=== PATIENT | male | born 1990 | race Caucasian/White ===

== ENCOUNTER 2019-12-19 08:42 | Outpatient (REF) | payer MEDICAID, SELFPAY ==
--- NOTE | 2019-12-19 08:46 | EMG_ITS ---
HISTORY OF PRESENT ILLNESS: This is a 29-year-old man with the right upper extremity pain and numbness, in the wrist area if he uses it with intermittent brief numbness and tingling in the thumb and index finger. He is on no medications. Neurological examination is normal. NERVE CONDUCTION EMG STUDY: Normal electrodiagnostic study of the right upper extremity with no evidence of nerve entrapment. Normal EMG of the right C5 through T1 innervated muscles. MD JORGE L Colby/LUPE / [id number]
== END 2019-12-19 08:43 | disposition home or self-care (01) ==
LOC: HO.NEURO 08:42
PROVIDERS: PCP Internal Medicine; Visit Provider Internal Medicine
DX: R20.0 Anesthesia of skin (principal)
CPT/HCPCS: 95860; 95886; 95910

== ENCOUNTER 2020-02-29 10:59 | Outpatient (REF) | payer MEDICAID, SELFPAY | END 2020-02-29 11:00 | disposition home or self-care (01) | LOC: HO.LAB 10:59 | PROVIDERS: Visit Provider Internal Medicine | DX: Z20.822 Contact with and (suspected) exposure to COVID-19 (principal) | CPT/HCPCS: 36415; C9803; U0003 ==

== ENCOUNTER 2020-04-04 08:39 | Emergency (ER) | payer MEDICAID, SELFPAY ==
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
[2020-04-04 09:00] VITALS: BP 140/92; PULSE 90; RESP 18; TEMP 37.4; O2SAT 97; BMI 36.2
[2020-04-04 09:15] LABS: Glucose, Whole Blood 118 mg/dL (60-115)
--- NOTE | 2020-04-04 09:21 | PC.NURSE ---
CARE TEAM CONTACTED TO SPEAK WITH PATIENT.
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
[2020-04-04] MEDS: Ketorolac Tromethamine 60 MG/2 ML VIAL IM (09:55)
[2020-04-04 10:22] LABS: MANUAL DIFF FLAG NO
[2020-04-04 10:23] LABS: Basophils Absolute Auto 0.1 X10*3/uL (0.0-0.2); Basophils Percent Auto 0.5 % (0-2); Eosinophils Absolute Auto 0.1 X10*3/uL (0.0-0.4); Eosinophils Percent Auto 0.5 % (0-4); Hemoglobin 13.9 g/dl (14.0-18.0); Imm Gran Abs Auto 0.05 X10*3/uL (0.00-0.03); Imm Gran Pct Auto 0.5 % (0.0-0.4); Lymphocytes Absolute Auto 3.3 X10*3/uL (1.2-4.9); Mean Corpuscular HGB Conc 32.3 g/dl (31.0-36.0); Mean Corpuscular Volume 83.5 fL (80-98); Mean Platelet Volume 11.3 fL (9.4-12.4); Monocytes Absolute Auto 0.6 X10*3/uL (0.1-1.2); Monocytes Percent Auto 6.7 % (2-11); Neutrophils Absolute Auto 5.2 X10*3/uL (2.0-8.3); Neutrophils Percent Auto 55.8 % (45-73); Platelet Count 239 X10*3/uL (160-400); Red Blood Count 5.15 X10*6/uL (4.60-5.80); Red Cell Distribution Width 14.2 % (11.0-16.0); White Blood Count 9.3 X10*3/uL (4.8-10.8)
[2020-04-04 10:51] LABS: Alanine Aminotransferase 38 U/L (0-40); Albumin Level 4.2 g/dL (3.5-5.0); Alkaline Phosphatase 94 U/L (39-117); Anion Gap 13 (12-20); Aspartate Amino Transferase 51 U/L (5-37); Bilirubin Direct 0.5 mg/dL (0.0-0.5); Blood Urea Nitrogen 12 mg/dL (9-16); Carbon Dioxide 23 mmol/L (22-29); Chloride 109 mmol/L (96-108); Creatinine Clr Calc Pharmacy 152.5; Estimated Glomerular Filt Rate > 60; Glucose Random 97 mg/dL (60-115); Potassium 4.4 mmol/L (3.3-5.1); Sodium 141 mmol/L (135-145)
--- NOTE | 2020-04-04 11:29 | PC.NURSE ---
PT GIVEN PO FLUIDS AND CRACKERS. NO VOMITING
== END 2020-04-04 11:29 | disposition home or self-care (01) ==
PROVIDERS: Nurse Practitioner Family; Emergency Provider Emergency Medicine Emergency Medical Services
DX: S20.213A Contusion of bilateral front wall of thorax, initial encounter (principal); S62.607A Fracture of unspecified phalanx of left little finger, initial encounter for closed fracture; Y04.2XXA Assault by strike against or bumped into by another person, initial encounter; Y93.89 Activity, other specified; Y92.038 Other place in apartment as the place of occurrence of the external cause; Y99.9 Unspecified external cause status
CPT/HCPCS: 29130; 36415; 71111; 73130; 80048; 80076; 82947; 85025; 96372; 99283; 99284; J1885

== ENCOUNTER 2020-06-09 20:25 | Emergency (ER) | payer MEDICAID, SELFPAY ==
[2020-06-09 20:29] VITALS: BP 132/80; PULSE 95; RESP 16; TEMP 37.1; O2SAT 97; BMI 37.6
--- NOTE | 2020-06-09 20:53 | PC.NURSE ---
POLICE HERE TO INTERVIEW PATIENT.
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
[2020-06-09] MEDS: diazePAM 5 MG TABLET PO (21:25)
[2020-06-09] MEDS: Diphth,Pertus(ACell),Tet Adult 0.5 ML SYRINGE IM (21:25)
[2020-06-09] MEDS: Lidocaine 4 % Cream KIT 1 APPL TOPICAL (21:26)
[2020-06-09 22:16] VITALS: BP 113/55; PULSE 72; RESP 12; TEMP 36.8; O2SAT 98
[2020-06-09] MEDS: HYDROcodone Bit/Acetam 5/325 TABLET 1 TAB PO (22:46)
== END 2020-06-09 23:51 | disposition left against medical advice (07) ==
PROVIDERS: Emergency Provider Emergency Medicine
DX: S31.821A Laceration without foreign body of left buttock, initial encounter (principal); S30.1XXA Contusion of abdominal wall, initial encounter; R10.9 Unspecified abdominal pain; X99.1XXA Assault by knife, initial encounter; Y93.9 Activity, unspecified; Y92.410 Unspecified street and highway as the place of occurrence of the external cause; Y99.9 Unspecified external cause status; Z79.899 Other long term (current) drug therapy
CPT/HCPCS: 12001; 90471; 90715; 99284

== ENCOUNTER 2020-06-21 18:02 | Emergency (ER) | payer MEDICAID, SELFPAY ==
[2020-06-21 18:32] VITALS: BP 107/65; PULSE 75; RESP 16; TEMP 37; O2SAT 98; BMI 37.6
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
== END 2020-06-21 19:10 | disposition home or self-care (01) ==
PROVIDERS: Emergency Provider Emergency Medicine
DX: L02.31 Cutaneous abscess of buttock (principal); Z48.02 Encounter for removal of sutures; Z79.899 Other long term (current) drug therapy
CPT/HCPCS: 99283

== ENCOUNTER 2020-07-18 14:40 | Outpatient (REF) | payer MEDICAID, SELFPAY | END 2020-07-18 14:41 | disposition home or self-care (01) | LOC: HO.LAB 14:40 | PROVIDERS: Visit Provider Internal Medicine | DX: Z20.822 Contact with and (suspected) exposure to COVID-19 (principal) | CPT/HCPCS: C9803; U0003; U0005 ==

== ENCOUNTER 2020-08-29 08:55 | Emergency (ER) | payer MEDICAID, SELFPAY ==
--- NOTE | ~2020-08-29 | XR_ITS ---
EXAMINATION: XR CHEST CLINICAL INFORMATION: Cough, fever, rhonchi COMPARISON: Chest and ribs 04/04/2020. TECHNIQUE: 2 views of the chest were obtained. FINDINGS: The lungs are clear. There is no airspace consolidation, groundglass opacity, or effusion. The heart is normal in size. The costophrenic sulci are clear. No hyperinflation. The hilar and mediastinal contours and visualized bony structures are unremarkable. XR/XR chest 2V IMPRESSION: Unremarkable examination.
[2020-08-29 09:02] VITALS: BP 133/70; PULSE 67; RESP 18; TEMP 36.9; O2SAT 98; BMI 37.6
[2020-08-29 09:28] LABS: COVID-19 Test Negative (Negative); IDNOW Serial# 9DD0AD1C
--- NOTE | 2020-08-29 09:58 | ED.GENADULT ---
HPI - General Adult General Chief complaint: General Medical Stated complaint: FEVER Time Seen by Provider: 08/29/20 09:52 Source: patient Mode of arrival: ambulatory Limitations: no limitations History of Present Illness HPI narrative: 30 y/o male with history of asthma presenting with 2 days of productive cough, subjective fevers, and chest tightness when he coughs. He is bringing up white and light yellow phlegm in the mornings. He has muscle and body aches. He reports headache as well. He denies N/V/D or abdominal pain. No known sick contacts. He does not work. He has been using his PRN albuterol inhaler with good effect. He denies FUNG or SOB. MD complaint: fever and productive cough Onset (ago): day(s) (2) Location: head and chest Radiation: non-radiation Severity: moderate Quality: aching Pain Consistency: intermittent Relieving factors: medication Exacerbating factors: movement and other (coughing) Associated symptoms: cough, headaches and loss of appetite Treatments prior to arrival: none Related Data Previous Rx's Medication Instructions Recorded cyclobenzaprine 10 mg PO TID PRN #10 tab 04/04/20 omeprazole 40 mg PO DAILY #30 cap 04/04/20 ondansetron 4 mg PO Q6H PRN #10 tab 04/04/20 sucralfate [Carafate] 1 g PO TID #30 tab 04/04/20 ibuprofen 600 mg PO Q6H PRN #20 tab 06/21/20 azithromycin [Zithromax Z-Jose] See Rx Instructions .ROUTE 08/29/20 .COMPLEX #6 tab benzonatate [Tessalon Perles] 100 mg PO TID PRN #14 cap 08/29/20 prednisone 40 mg PO DAILY #10 tab 08/29/20 Allergies Allergy/AdvReac Type Severity Reaction Status Date / Time No Known Allergies Allergy Verified 06/09/20 20:36 [No Known Allergies*] Review of Systems Review of Systems: Constitutional: + Fever, + Chills ENT/Mouth: No sore throat, + Rhinorrhea, No Swallowing Difficulty Eyes: No Eye Pain, No Swelling, No Redness Cardiovascular: No Chest Pain, No SOB, No Orthopnea, No Edema Respiratory: + Cough, + Sputum, No Wheezing, No dyspnea Gastrointestinal: No Nausea, No Vomiting, No Diarrhea, No abdominal Pain Musculoskeletal: No joint pain, + Myalgias Skin: No Skin Lesions, No rash Neuro: No Weakness, No Numbness, No Dizziness, + Headache Heme/Lymph: No Lymphadenopathy PMFSH Past Medical History Attestation statement: The following information was validated with the patient. Medical History Asthma Hypokalemia Social History Social History Advance Directives: Yes Advance Directives Information Provided: Yes Advance Directives on File: No Physical Exam Vital Signs: Vital Signs: Last Vital Signs Temp 98.5 F 08/29/20 09:02 Pulse 88 08/29/20 10:40 Resp 18 08/29/20 09:02 BP 133/70 08/29/20 09:02 Pulse Ox 98 08/29/20 09:02 Body Mass Index 37.6 Appearance: Alert. Oriented X3. No acute distress. Eyes: Pupils equal, round and reactive to light. ENT: Pharynx with mild generalized erythema, no tonsillar erythema or exudate Neck: Normal inspection. Neck supple. no LAD CVS: Normal heart rate and rhythm. Pulses normal. Respiratory: No respiratory distress. Breath sounds with mild rhonchi of RLL. Speaks in complete sentences, congested cough Abdomen: Soft and nontender. +BS x4 Skin: Skin warm and dry. Normal skin color. Normal skin turgor. No rashes. Neuro: Oriented X 3. Non-focal Course Course Course Narrative: 30 y/o male presenting with subjective fever, myalgias and productive cough x2 days. He is nontoxic appearing with normal VS. Will check COVID swab and CXR to r/o PNA. Asking for neb treatment - no wheezes on exam but slight rhonchi to RLL - 2.5 mg albuterol ordered. Reevaluation(s) Reevaluation #1: CXR clear and COVID is negative. Patient's clinical presentation is most consistent with acute bronchitis, will treat as such with abx, prednisone and antitussive. He was encouraged to f/u with his PCP or come back to the ER if symptoms worsen. Stable for d/c home with supportive care. Medical Decision Making Lab Data Labs: Lab Results 07/09/21 Range/Units 09:07 COVID-19 ([facility]) Negative (Negative) COVID-19 Clin Com See Note Critical Care Time Critical Care Time Critical Care Time: No Discharge Plan Discharge Clinical Impression: Bronchitis Patient Disposition: Home, Self-Care Instructions: Acute Bronchitis (ED) Additional Instructions: Your COVID test was negative. Your chest x-ray was normal. Your vital signs and oxygen levels were normal. Take the prescribed medications as directed for bronchitis. Rest and drink plenty of fluids. Take over the counter cold/flu medications as needed for your symptoms. Take Tylenol and/or Motrin as needed for fevers and body aches. Follow up with your doctor this week. If you shortness of breath worsens, if you develop difficulty breathing or any other concerning symptom come back to the ER for further evaluation. Prescriptions: New azithromycin [Zithromax Z-Jose] 250 mg tablet See Rx Instructions .ROUTE .COMPLEX Qty: 6 RF: 0 prednisone 20 mg tablet 40 mg PO DAILY Qty: 10 RF: 0 benzonatate [Tessalon Perles] 100 mg capsule 100 mg PO TID PRN (Reason: cough) Qty: 14 RF: 0 No Action ondansetron 4 mg tablet,disintegrating 4 mg PO Q6H PRN (Reason: nausea and vomiting) Qty: 10 RF: 0 sucralfate [Carafate] 1 gram tablet 1 g PO TID Qty: 30 RF: 0 omeprazole 40 mg capsule,delayed release(DR/EC) 40 mg PO DAILY Qty: 30 RF: 0 cyclobenzaprine 10 mg tablet 10 mg PO TID PRN (Reason: muscle spasm) Qty: 10 RF: 0 ibuprofen 600 mg tablet 600 mg PO Q6H PRN (Reason: pain) Qty: 20 RF: 0 Interventions: ED Discharge Assessment Last Done: 08/29/20 10:55 Discharge Date/Time: 08/29/20 10:56
[2020-08-29] MEDS: Albuterol Sulfate (0.083%) 2.5 MG/3 ML VIAL.NEB INHALE (10:39)
[2020-08-29 10:40] VITALS: PULSE 88; O2SAT 98
== END 2020-08-29 10:56 | disposition home or self-care (01) ==
LOC: HO.ED 10:24
PROVIDERS: Emergency Provider Emergency Medicine
DX: J40 Bronchitis, not specified as acute or chronic (principal); J45.909 Unspecified asthma, uncomplicated; Z20.822 Contact with and (suspected) exposure to COVID-19
CPT/HCPCS: 36415; 71046; 87635; 94640; 99283; 99284

== ENCOUNTER 2020-10-02 11:13 | Emergency (ER) | payer MEDICAID, SELFPAY | END 2020-10-02 11:35 | disposition left against medical advice (07) | PROVIDERS: Emergency Provider Emergency Medicine | DX: R69 Illness, unspecified (principal) ==

== ENCOUNTER 2020-10-02 11:23 | Outpatient (REF) | payer MEDICAID, SELFPAY | END 2020-10-02 11:24 | disposition home or self-care (01) | LOC: HO.LAB 11:23 | PROVIDERS: Visit Provider Internal Medicine | DX: Z20.822 Contact with and (suspected) exposure to COVID-19 (principal) | CPT/HCPCS: C9803; U0003; U0005 ==

== ENCOUNTER 2021-01-15 00:07 | Emergency (ER) | payer MEDICAID, SELFPAY ==
[2021-01-15 00:13] VITALS: BP 120/65; PULSE 79; RESP 18; TEMP 37.1; O2SAT 98; BMI 37.5
--- NOTE | 2021-01-15 00:22 | ED.ABDPAIN ---
HPI - Abdominal Pain General Chief Complaint: Abdominal Pain Stated Complaint: Abdominal Pain Time Seen by Provider: 01/15/21 00:22 Source: patient Mode of arrival: ambulatory Limitations: no limitations Related Data Previous Rx's Medication Instructions Recorded cyclobenzaprine 10 mg tablet 10 mg PO TID PRN #10 tab 04/04/20 omeprazole 40 mg capsule,delayed 40 mg PO DAILY #30 cap 04/04/20 release ondansetron 4 mg disintegrating 4 mg PO Q6H PRN #10 tab 04/04/20 tablet sucralfate 1 gram tablet (Carafate) 1 g PO TID #30 tab 04/04/20 ibuprofen 600 mg tablet 600 mg PO Q6H PRN #20 tab 06/21/20 azithromycin 250 mg tablet See Rx Instructions .ROUTE 08/29/20 (Zithromax Z-Jose) .COMPLEX #6 tab benzonatate 100 mg capsule 100 mg PO TID PRN #14 cap 08/29/20 (Tessalon Perles) prednisone 20 mg tablet 40 mg PO DAILY #10 tab 08/29/20 Allergies Allergy/AdvReac Type Severity Reaction Status Date / Time No Known Allergies Allergy Verified 01/15/21 00:12 [No Known Allergies*] Physical Exam Vital Signs: Vital Signs: Last Vital Signs Temp 98.7 F 01/15/21 00:13 Pulse 79 01/15/21 00:13 Resp 18 01/15/21 00:13 BP 120/65 01/15/21 00:13 Pulse Ox 98 01/15/21 00:13 Body Mass Index 37.5 Discharge Plan Discharge Prescriptions: No Action azithromycin [Zithromax Z-Jose] 250 mg tablet See Rx Instructions .ROUTE .COMPLEX Qty: 6 RF: 0 prednisone 20 mg tablet 40 mg PO DAILY Qty: 10 RF: 0 benzonatate [Tessalon Perles] 100 mg capsule 100 mg PO TID PRN (Reason: cough) Qty: 14 RF: 0 ondansetron 4 mg tablet,disintegrating 4 mg PO Q6H PRN (Reason: nausea and vomiting) Qty: 10 RF: 0 sucralfate [Carafate] 1 gram tablet 1 g PO TID Qty: 30 RF: 0 omeprazole 40 mg capsule,delayed release(DR/EC) 40 mg PO DAILY Qty: 30 RF: 0 cyclobenzaprine 10 mg tablet 10 mg PO TID PRN (Reason: muscle spasm) Qty: 10 RF: 0 ibuprofen 600 mg tablet 600 mg PO Q6H PRN (Reason: pain) Qty: 20 RF: 0 PMFSH Past Medical History Medical History Asthma Hypokalemia
--- NOTE | 2021-01-15 00:33 | ED.MALEGU ---
HPI - Male Genitourinary General Chief complaint: Urogenital-Male Stated complaint: Abdominal Pain Time Seen by Provider: 01/15/21 00:22 Source: patient Mode of arrival: ambulatory Limitations: no limitations History of Present Illness HPI Narrative: Patient had protected sex 2 days ago since then complaining of pain when urinates with some yellow discharge at the tip of the penis no history of STDs in the past Related Data Previous Rx's Medication Instructions Recorded cyclobenzaprine 10 mg tablet 10 mg PO TID PRN #10 tab 04/04/20 omeprazole 40 mg capsule,delayed 40 mg PO DAILY #30 cap 04/04/20 release ondansetron 4 mg disintegrating 4 mg PO Q6H PRN #10 tab 04/04/20 tablet sucralfate 1 gram tablet (Carafate) 1 g PO TID #30 tab 04/04/20 ibuprofen 600 mg tablet 600 mg PO Q6H PRN #20 tab 06/21/20 azithromycin 250 mg tablet See Rx Instructions .ROUTE 08/29/20 (Zithromax Z-Jose) .COMPLEX #6 tab benzonatate 100 mg capsule 100 mg PO TID PRN #14 cap 08/29/20 (Tessalon Perles) prednisone 20 mg tablet 40 mg PO DAILY #10 tab 08/29/20 Allergies Allergy/AdvReac Type Severity Reaction Status Date / Time No Known Allergies Allergy Verified 01/15/21 00:12 [No Known Allergies*] Review of Systems Review of Systems: Yes all other systems are reviewed and are negative PMFSH Past Medical History Medical History Asthma Hypokalemia Social History Social History Alcohol intake: never Patient Tobacco Use Status: Never used Tobacco Use of substances other than those prescribed or required for medical reasons: Yes Substance Use Type: Marijuana Substance Use Frequency: Occasionally Last Used Substance: Days (ago) Any prior treatment program specific to substance use: No Advance Directives: No Advance Directives Information Provided: Yes Physical Exam Vital Signs: Vital Signs: Last Vital Signs Temp 98.9 F 01/15/21 00:42 Pulse 70 01/15/21 00:42 Resp 18 01/15/21 00:42 BP 119/62 01/15/21 00:42 Pulse Ox 97 01/15/21 00:42 Body Mass Index 37.5 Const: General: no acute distress and well developed GI: Inspection: Yes normal to inspection Palpation (GI): Soft to palpation and nontender : General: Yes no CVA tenderness Penis: normal penis and uncircumcised Meatus: meatal discharge Scrotum: scrotum normal Testes: Testes normal Male genitals images: 1. Purulent discharge at the tip of the penis Back/Spine/Pelvis: Back: no CVA tenderness MDM - Male Genitourinary MDM Narrative Medical decision making narrative: Patient likely GC positive sample was sent for chlamydia and gonorrhea provided the treatment with ceftriaxone, Zithromax, Flagyl was given patient advised to let her partner know about the condition and get treated Urine positive for gonorrhea as suspected, at patient's phone number provided message was left to call us in the ER Lab Data Attestation: I reviewed the patient's lab results. Labs: Lab Results 01/15/21 01/15/21 Range/Units 00:28 00:38 Urine Color YELLOW Urine Appearance CLEAR Urine pH 6.0 (5.0-8.0) Ur Specific [place] >= 1.030 H (1.005-1.025) Urine Protein TRACE (NEG-TRACE) MG/DL Urine Glucose (UA) NEG (NEG) MG/DL Urine Ketones NEG (NEG) MG/DL Urine Blood NEG (NEG) Urine Nitrite NEG (NEG) Ur Leukocyte Esterase NEG (NEG) Urine RBC 5-9 H (0) /HPF Urine WBC 5-9 H (0-4) /HPF Ur Squamous Epith Cells TRACE /LPF Urine Bacteria NONE /LPF Urine Mucus TRACE /LPF Chlam trachomat DNA PCR NOT DETECTED (Not Detect.) N.gonorrhoeae DNA (PCR) DETECTED A (Not Detect.) Discharge Plan Discharge Clinical Impression: Potential exposure to STD Patient Disposition: Home, Self-Care Instructions: Sexually Transmitted Diseases (ED) Additional Instructions: You likely have STDs infection and you were given prophylactic treatment pending final culture We will call you with the results of the culture Let your partner know and she should be treated for possible STDs too Prescriptions: No Action azithromycin [Zithromax Z-Jose] 250 mg tablet See Rx Instructions .ROUTE .COMPLEX Qty: 6 RF: 0 prednisone 20 mg tablet 40 mg PO DAILY Qty: 10 RF: 0 benzonatate [Tessalon Perles] 100 mg capsule 100 mg PO TID PRN (Reason: cough) Qty: 14 RF: 0 ondansetron 4 mg tablet,disintegrating 4 mg PO Q6H PRN (Reason: nausea and vomiting) Qty: 10 RF: 0 sucralfate [Carafate] 1 gram tablet 1 g PO TID Qty: 30 RF: 0 omeprazole 40 mg capsule,delayed release(DR/EC) 40 mg PO DAILY Qty: 30 RF: 0 cyclobenzaprine 10 mg tablet 10 mg PO TID PRN (Reason: muscle spasm) Qty: 10 RF: 0 ibuprofen 600 mg tablet 600 mg PO Q6H PRN (Reason: pain) Qty: 20 RF: 0 Interventions: ED Discharge Assessment Last Done: 01/15/21 03:04 Discharge Date/Time: 01/15/21 02:00
[2021-01-15 00:36] LABS: Appearance Urine CLEAR; Color Urine YELLOW; Glucose Urine UA NEG (NEG); Leukocyte Esterase Urine NEG (NEG); Nitrite Urine NEG (NEG); Specific Gravity - Urine >= 1.030 (1.005-1.025); Urine Blood NEG (NEG); Urine Ketones NEG (NEG); Urine Protein TRACE MG/DL (NEG-TRACE)
--- NOTE | 2021-01-15 00:39 | PC.NURSE ---
pt states he doesnt have abd pain as he reported to the triage nurse. pt states he didnt want to say out in the waiting room that he had a private issue with urination and unprotected sex. urine clean and dirty recieved.
[2021-01-15 00:42] VITALS: BP 119/62; PULSE 70; RESP 18; TEMP 37.2; O2SAT 97
[2021-01-15] MEDS: metroNIDAZOLE 500 MG TABLET 2000 MG PO (00:46)
[2021-01-15] MEDS: Ondansetron ODT 4 MG TAB.RAPDIS TRANSLINGU (00:47)
[2021-01-15] MEDS: cefTRIAXone sodium 500 MG, Lidocaine HCl 1 % MPF 1 ML IM (00:47)
[2021-01-15] MEDS: Azithromycin 500 MG TABLET 1000 MG PO (00:47)
[2021-01-15 00:55] LABS: Mucus Urine TRACE /LPF; Squamous Epithelial Cell Urine TRACE /LPF; UACC CULT YES
[2021-01-15 02:59] LABS: CT PCR NOT DETECTED (Not Detect.); NG PCR DETECTED (Not Detect.)
== END 2021-01-15 02:00 | disposition home or self-care (01) ==
PROVIDERS: Emergency Provider Internal Medicine
DX: R30.0 Dysuria (principal); R10.9 Unspecified abdominal pain; N48.89 Other specified disorders of penis; Z20.2 Contact with and (suspected) exposure to infections with a predominantly sexual mode of transmission; Z79.899 Other long term (current) drug therapy
CPT/HCPCS: 81001; 87086; 87491; 87591; 96372; 99284; J0696

== ENCOUNTER 2021-05-21 02:53 | Emergency (ER) | payer MEDICAID, SELFPAY ==
--- NOTE | ~2021-05-21 | XR_ITS ---
EXAMINATION: XR CHEST CLINICAL INFORMATION: Cough COMPARISON: 08/29/2020 TECHNIQUE: 2 views of the chest were obtained. FINDINGS: Normal symmetric lung volumes. No parenchymal consolidation. No pleural effusion. No pneumothorax. Cardiomediastinal silhouette and pulmonary vascularity are within normal limits. No acute osseous abnormalities. XR/XR chest 2V IMPRESSION: No acute findings.
[2021-05-21 02:56] VITALS: BP 136/79; PULSE 89; RESP 18; TEMP 37.7; O2SAT 98; BMI 39.0
[2021-05-21 03:56] LABS: Influenza A PCR NEGATIVE (Negative); Influenza B PCR NEGATIVE (Negative); Resp Syncy Virus RNA Qual PCR NEGATIVE (Negative); SARS COV2 PCR INHOUSE NEGATIVE (Negative)
[2021-05-21 04:27] VITALS: BP 118/72; PULSE 82; RESP 16; TEMP 37; O2SAT 98
--- NOTE | 2021-05-21 05:06 | ED_ITS ---
HPI - General Adult General Chief complaint: Upper Respiratory Symptoms Stated complaint: n/v/d, fever Time Seen by Provider: 05/21/21 05:05 Source: patient Mode of arrival: ambulatory History of Present Illness HPI narrative: 30-year-old male with history of asthma presents with complaints of chest discomfort on deep breathing and with coughing with associated subjective fevers as well as chills and he reports a few episodes of nausea and vomiting and an episode of diarrhea. Patient states that this started a couple of days ago and denies any alcohol/drug/marijuana use. Patient then states that his breathing is ?not right? and that his partner ?had something?, and he is worried because he has a small child. Related Data Previous Rx's Medication Instructions Recorded cyclobenzaprine 10 mg tablet 10 mg PO TID PRN #10 tab 04/04/20 omeprazole 40 mg capsule,delayed 40 mg PO DAILY #30 cap 04/04/20 release ondansetron 4 mg disintegrating 4 mg PO Q6H PRN #10 tab 04/04/20 tablet sucralfate 1 gram tablet (Carafate) 1 g PO TID #30 tab 04/04/20 ibuprofen 600 mg tablet 600 mg PO Q6H PRN #20 tab 06/21/20 azithromycin 250 mg tablet See Rx Instructions .ROUTE 08/29/20 (Zithromax Z-Jose) .COMPLEX #6 tab benzonatate 100 mg capsule 100 mg PO TID PRN #14 cap 08/29/20 (Tessalon Perles) prednisone 20 mg tablet 40 mg PO DAILY #10 tab 08/29/20 benzonatate 100 mg capsule 100 mg PO TID PRN #10 cap 05/21/21 Allergies Allergy/AdvReac Type Severity Reaction Status Date / Time No Known Allergies Allergy Verified 05/21/21 02:56 [No Known Allergies*] Review of Systems Review of Systems: Pertinent positives and negatives as stated in HPI 10 point review of systems is otherwise negative. FORMERLY [facility], [facility] Past Medical History Source: nursing notes reviewed Medical History Asthma Hypokalemia Social History Social History Alcohol intake: never Patient Tobacco Use Status: Never used Tobacco Substance Use Type: Marijuana Advance Directives: No Advance Directives Information Provided: Yes Physical Exam ED Vital Signs: Vital Signs - 24 hr 05/21/21 02:56 05/21/21 04:27 Temperature 99.8 F 98.6 F Pulse Rate 89 82 Respiratory Rate 18 16 Blood Pressure 136/79 118/72 Pulse Oximetry 98 98 BMI result Body Mass Index 39.0 VITAL SIGNS: Reviewed. GENERAL: Well developed, well nourished, in no acute distress. HEAD: Normocephalic/atraumatic EYES: PERRLA, EOMI EARS: Ext canals without abnormality, TMs non-bulging and non-erythematous NOSE: Nares patent bilateral OROPHARYNX: no oral lesions noted, posterior pharynx clear and non-erythematous without noted tonsillar enlargement/erythema/exudates NECK: Supple, no adenopathy LUNGS: Good inspiratory effort, trace wheeze without rhonchi rales, no tachypnea retractions noted. SpO2<98> CARDIOVASCULAR: Regular rate and rhythm without noted murmurs ABDOMEN: Soft, non-tender, non-distended with bowel sounds. SKIN: Inspection of the skin reveals no rashes NEUROLOGIC: Alert and oriented x 4. Strength and sensation to light touch were grossly intact x 4. Course Course Course Narrative: 30-year-old male with history and clinical presentation suggestive of possible viral syndrome, but on review of all investigations chest x-ray is without acute findings and respiratory panel is negative. Patient will receive an albuterol treatment as well as some Zofran and be assessed for p.o. tolerance. On re-evaluation patient is feeling better and on review of all investigations there are no further acute findings. Patient is tolerating oral intake and will be discharged home with cough suppressant and instructions to follow-up with his primary care provider. Medical Decision Making Lab Data Labs: Lab Results 05/21/21 Range/Units 03:01 Influenza Type A (PCR) NEGATIVE (Negative) Influenza Type B (PCR) NEGATIVE (Negative) RSV RNA Qual (PCR) NEGATIVE (Negative) SARS-CoV-2 RNA (RT-PCR) NEGATIVE (Negative) Discharge Plan Discharge Clinical Impression: Viral infection Patient Disposition: Home, Self-Care Instructions: Viral Syndrome (ED) Additional Instructions: 1. Resume all home medications as prescribed. 2. Increase fluid hydration, especially with water. 3. Follow-up with your primary care provider in the next 2-3 days for re- evaluation. Return to the ER for worsening symptoms. Prescriptions: New benzonatate 100 mg capsule 100 mg PO TID PRN (Reason: cough) Qty: 10 0RF No Action azithromycin [Zithromax Z-Jose] 250 mg tablet See Rx Instructions .ROUTE .COMPLEX Qty: 6 0RF Rx Instructions: take 500 mg today (day 1), then 250 mg for 4 days (days 2-5) prednisone 20 mg tablet 40 mg PO DAILY Qty: 10 0RF benzonatate [Tessalon Perles] 100 mg capsule 100 mg PO TID PRN (Reason: cough) Qty: 14 0RF ondansetron 4 mg tablet,disintegrating 4 mg PO Q6H PRN (Reason: nausea and vomiting) Qty: 10 0RF sucralfate [Carafate] 1 gram tablet 1 g PO TID Qty: 30 0RF omeprazole 40 mg capsule,delayed release(DR/EC) 40 mg PO DAILY Qty: 30 0RF cyclobenzaprine 10 mg tablet 10 mg PO TID PRN (Reason: muscle spasm) Qty: 10 0RF ibuprofen 600 mg tablet 600 mg PO Q6H PRN (Reason: pain) Qty: 20 0RF Referrals: [facility] [Primary Care Provider] - 2 days
[2021-05-21] MEDS: Ondansetron ODT 4 MG TAB.RAPDIS TRANSLINGU (05:23)
[2021-05-21] MEDS: Acetaminophen 325 MG TABLET 975 MG PO (05:23)
[2021-05-21] MEDS: Albuterol Sulfate (0.083%) 2.5 MG/3 ML VIAL.NEB 10 MG INHALE (05:24)
[2021-05-21] MEDS: Benzonatate 100 MG CAPSULE 200 MG PO (05:28)
[2021-05-21] MEDS: Ibuprofen 400 MG TABLET PO (05:29)
== END 2021-05-21 07:14 | disposition home or self-care (01) ==
PROVIDERS: Emergency Provider Student in an Organized Health Care Education/Training Program
DX: B34.9 Viral infection, unspecified (principal); Z20.822 Contact with and (suspected) exposure to COVID-19; R11.2 Nausea with vomiting, unspecified; R50.9 Fever, unspecified; J45.909 Unspecified asthma, uncomplicated
CPT/HCPCS: 0241U; 71046; 99284

== ENCOUNTER 2021-05-23 17:48 | Emergency (ER) | payer MEDICAID, SELFPAY ==
--- NOTE | ~2021-05-23 | XR_ITS ---
EXAMINATION: XR CHEST CLINICAL INFORMATION: Utilized symptoms. COMPARISON: None TECHNIQUE: Frontal view of the chest was obtained. FINDINGS: No significant abnormality is noted involving the heart, lungs, mediastinum, bony thorax or soft tissues. XR/XR chest 1V IMPRESSION: Unremarkable chest examination.
[2021-05-23 17:53] VITALS: BP 126/78; PULSE 84; RESP 16; TEMP 36.6; O2SAT 97; BMI 39.0
--- NOTE | 2021-05-23 18:49 | PC.NURSE ---
1830 CALLED NO ANSWER.?LWT.
--- NOTE | 2021-05-23 19:32 | PC.NURSE ---
pt not in the waiting room at this time. lwt. 2nd call.
== END 2021-05-23 20:51 | disposition left against medical advice (07) ==
PROVIDERS: Emergency Provider Emergency Medicine
DX: R07.9 Chest pain, unspecified (principal); H92.01 Otalgia, right ear
CPT/HCPCS: 71045; 99282; 99283

== ENCOUNTER 2021-07-06 13:41 | Emergency (ER) | payer MEDICAID, SELFPAY ==
[2021-07-06 13:47] VITALS: BP 103/58; PULSE 87; O2SAT 99
== END 2021-07-06 19:28 | disposition left against medical advice (07) ==
PROVIDERS: Emergency Provider Emergency Medicine
DX: R10.9 Unspecified abdominal pain (principal)

== ENCOUNTER 2021-07-06 19:33 | Emergency (ER) | payer MEDICAID, SELFPAY ==
[2021-07-06 19:46] VITALS: BP 116/90; PULSE 89; RESP 19; TEMP 36.9; O2SAT 99; BMI 39.0
[2021-07-06 19:59] LABS: MANUAL DIFF FLAG NO
[2021-07-06 20:02] LABS: Basophils Absolute Auto 0.1 X10*3/uL (0.0-0.2); Basophils Percent Auto 0.3 % (0-2); Eosinophils Percent Auto 0.1 % (0-4); Hematocrit 46.8 % (42.0-52.0); Hemoglobin 15.5 g/dl (14.0-18.0); Imm Gran Abs Auto 0.05 X10*3/uL (0.00-0.03); Imm Gran Pct Auto 0.3 % (0.0-0.4); Lymphocytes Absolute Auto 4.4 X10*3/uL (1.2-4.9); Mean Corpuscular HGB Conc 33.1 g/dl (31.0-36.0); Mean Corpuscular Hemoglobin 26.8 pg (27.0-33.0); Mean Corpuscular Volume 80.8 fL (80.0-98.0); Mean Platelet Volume 11.1 fL (9.4-12.4); Monocytes Absolute Auto 0.7 X10*3/uL (0.1-1.2); Neutrophils Percent Auto 63.3 % (45-73); Platelet Count 315 X10*3/uL (160-400); Red Blood Count 5.79 X10*6/uL (4.60-5.80); Red Cell Distribution Width 13.8 % (11.0-16.0); White Blood Count 14.3 X10*3/uL (4.8-10.8)
[2021-07-06 20:17] LABS: Influenza A Negative (Negative); Influenza B2 Negative (Negative)
[2021-07-06 20:26] LABS: Alanine Aminotransferase 35 U/L (0-40); Albumin Level 4.5 g/dL (3.5-5.0); Alkaline Phosphatase 102 U/L (39-117); Anion Gap 17 (12-20); Aspartate Amino Transferase 25 U/L (5-37); Bilirubin Direct 0.4 mg/dL (0.0-0.5); Bilirubin Total 1.1 mg/dL (0.0-1.0); Blood Urea Nitrogen 11 mg/dL (9-16); Calcium 10.5 mg/dL (8.4-10.2); Carbon Dioxide 19 mmol/L (22-29); Chloride 108 mmol/L (96-108); Creatinine Clr Calc Pharmacy 125.4; Estimated Glomerular Filt Rate > 60; Glucose Random 127 mg/dL (60-115); Lipase 14 U/L (8-78); Potassium 4.1 mmol/L (3.3-5.1); Sodium 140 mmol/L (135-145); Total Protein 8.1 g/dL (6.5-8.0)
== END 2021-07-06 21:54 | disposition left against medical advice (07) ==
LOC: HO.ED 21:37
PROVIDERS: Emergency Provider Emergency Medicine
DX: R05.9 Cough, unspecified (principal); R33.9 Retention of urine, unspecified; R10.9 Unspecified abdominal pain; Z20.822 Contact with and (suspected) exposure to COVID-19; Z79.899 Other long term (current) drug therapy
CPT/HCPCS: 80048; 80076; 83690; 85025; 87502; 99283

== ENCOUNTER 2021-07-06 23:37 | Emergency (ER) | payer MEDICAID, SELFPAY ==
[2021-07-07 00:35] VITALS: BP 123/75; PULSE 90; RESP 20; TEMP 36.6; O2SAT 98; BMI 37.6
[2021-07-07] MEDS: Ondansetron ODT 4 MG TAB.RAPDIS SUBLINGUAL (00:54)
[2021-07-07 01:11] VITALS: BP 139/82; PULSE 81; RESP 20; O2SAT 100
--- NOTE | 2021-07-07 01:58 | ED_ITS ---
HPI - Nausea/Vomiting/Diarrhea General Chief complaint: Nausea/Vomiting/Diarrhea Stated complaint: vomiting blood Time Seen by Provider: 07/07/21 01:49 Source: patient Mode of arrival: ambulatory History of Present Illness HPI Narrative: 30-year-old male without significant past medical history presents with onset of repeated episodes of nausea, vomiting, diarrhea since eating hamburger approximately 8 hours ago. Patient does endorse that he smokes marijuana but states that this is a chronic everyday occurrence and does not believe that it contributes to his symptoms at all today. He otherwise denies any fever, chills, urinary symptoms, shortness of breath. Related Data Previous Rx's Medication Instructions Recorded cyclobenzaprine 10 mg tablet 10 mg PO TID PRN #10 tab 04/04/20 omeprazole 40 mg capsule,delayed 40 mg PO DAILY #30 cap 04/04/20 release ondansetron 4 mg disintegrating 4 mg PO Q6H PRN #10 tab 04/04/20 tablet sucralfate 1 gram tablet (Carafate) 1 g PO TID #30 tab 04/04/20 ibuprofen 600 mg tablet 600 mg PO Q6H PRN #20 tab 06/21/20 azithromycin 250 mg tablet See Rx Instructions .ROUTE 08/29/20 (Zithromax Z-Jose) .COMPLEX #6 tab benzonatate 100 mg capsule 100 mg PO TID PRN #14 cap 08/29/20 (Tessalon Perles) prednisone 20 mg tablet 40 mg PO DAILY #10 tab 08/29/20 benzonatate 100 mg capsule 100 mg PO TID PRN #10 cap 05/21/21 omeprazole 40 mg capsule,delayed 40 mg PO DAILY 30 Days #30 cap 07/07/21 release Allergies Allergy/AdvReac Type Severity Reaction Status Date / Time No Known Allergies Allergy Verified 07/06/21 19:46 [No Known Allergies*] Review of Systems Review of Systems: Pertinent positives and negatives as stated in HPI 10 point review of systems is otherwise negative. [facility] Past Medical History Source: nursing notes reviewed Medical History Asthma Hypokalemia Social History Social History Alcohol intake: never Patient Tobacco Use Status: Never used Tobacco Substance Use Type: Marijuana Advance Directives: No Advance Directives Information Provided: No Physical Exam Vital Signs: Vital Signs: Last Vital Signs Temp 97.8 F 07/07/21 00:35 Pulse 88 07/07/21 03:51 Resp 16 07/07/21 03:51 BP 107/55 L 07/07/21 03:51 Pulse Ox 97 07/07/21 03:51 BMI result Body Mass Index 37.6 VITAL SIGNS: Reviewed. GENERAL: Well developed, well nourished, in moderate distress. HEAD: Normocephalic/atraumatic EYES: PERRLA, EOMI EARS: Ext canals without abnormality OROPHARYNX: no oral lesions noted, posterior pharynx clear LUNGS: Normal breath sounds. No adventitious sounds or accessory muscle use. SpO2<100> CARDIOVASCULAR: Regular rate and rhythm without noted murmurs ABDOMEN: Soft, diffusely tender, non-distended with bowel sounds. MUSCULOSKELETAL: No tenderness, deformities, or effusions noted on gross inspection. EXTREMITIES: No cyanosis, clubbing or edema. SKIN: Inspection of the skin reveals no rashes NEUROLOGIC: Alert and oriented x 4. Strength and sensation to light touch were grossly intact x 4. Course Course Course Narrative: 30-year-old male with history and clinical presentation consistent with possible food contamination/gastroenteritis and will receive IV fluids as well as antiemetics. On review of all investigations findings are consistent with reactive response to patient's multiple episodes of nausea and vomiting. On re-evaluation patient is feeling much is otherwise stable for discharge to home with a prescription for omeprazole and instructions to follow-up with his GI doctor. Discharge Plan Discharge Clinical Impression: Gastroenteritis, Dehydration, Gastritis Patient Disposition: Home, Self-Care Instructions: Gastritis (ED), Dehydration (ED), Diet for Stomach Ulcers and Gastritis (ED), Gastroenteritis (ED) Additional Instructions: 1. Please continue to drink plenty of water and be cautious with the types of food that you eat to include caffeinated/carbonated beverages. 2. You have been provided with a prescription for omeprazole for 30 days and we recommend that you follow-up with your catering coordinator at your earliest convenience. Return to the ER for worsening symptoms. Prescriptions: New omeprazole 40 mg capsule,delayed release(DR/EC) 40 mg PO DAILY 30 Days Qty: 30 0RF No Action azithromycin [Zithromax Z-Jose] 250 mg tablet See Rx Instructions .ROUTE .COMPLEX Qty: 6 0RF Rx Instructions: take 500 mg today (day 1), then 250 mg for 4 days (days 2-5) prednisone 20 mg tablet 40 mg PO DAILY Qty: 10 0RF benzonatate [Tessalon Perles] 100 mg capsule 100 mg PO TID PRN (Reason: cough) Qty: 14 0RF ondansetron 4 mg tablet,disintegrating 4 mg PO Q6H PRN (Reason: nausea and vomiting) Qty: 10 0RF sucralfate [Carafate] 1 gram tablet 1 g PO TID Qty: 30 0RF omeprazole 40 mg capsule,delayed release(DR/EC) 40 mg PO DAILY Qty: 30 0RF cyclobenzaprine 10 mg tablet 10 mg PO TID PRN (Reason: muscle spasm) Qty: 10 0RF ibuprofen 600 mg tablet 600 mg PO Q6H PRN (Reason: pain) Qty: 20 0RF benzonatate 100 mg capsule 100 mg PO TID PRN (Reason: cough) Qty: 10 0RF Referrals: [facility] [Primary Care Provider] -
[2021-07-07] MEDS: diphenhydrAMINE HCL 50 MG/ML VIAL 25 MG IVPUSH (01:59)
[2021-07-07] MEDS: 0.9 % Sodium Chloride 2,000 ML 999 ML IV (02:00)
[2021-07-07] MEDS: Famotidine/PF 20 MG/2 ML VIAL IVPUSH (02:00)
[2021-07-07] MEDS: ondansetron HCL 4 MG/2 ML VIAL IVPUSH (02:00)
[2021-07-07] MEDS: Metoclopramide HCl 10 MG/2 ML VIAL IVPUSH (02:00)
[2021-07-07 02:31] VITALS: BP 116/61; PULSE 71; RESP 14; O2SAT 97
[2021-07-07] MEDS: Sucralfate Oral Suspension 1 GM/10 ML ORAL.SUSP PO (02:34)
[2021-07-07] MEDS: Lidocaine HCl Viscous 2 % 15 ML SOLUTION 10 ML MUCOUS MEM (02:34)
[2021-07-07] MEDS: Magnesium Hydrox/Alum Hydrox 30 ML ORAL.SUSP PO (02:34)
[2021-07-07 03:51] VITALS: BP 107/55; PULSE 88; RESP 16; O2SAT 97
[2021-07-07 04:40] VITALS: BP 111/65; PULSE 88; RESP 16; TEMP 36.6; O2SAT 98
== END 2021-07-07 04:47 | disposition home or self-care (01) ==
PROVIDERS: Emergency Provider Student in an Organized Health Care Education/Training Program
DX: K52.9 Noninfective gastroenteritis and colitis, unspecified (principal); R11.2 Nausea with vomiting, unspecified; Z79.899 Other long term (current) drug therapy
CPT/HCPCS: 96361; 96374; 96375; 99284; J1200; J2405; J2765

== ENCOUNTER 2021-07-07 16:26 | Emergency (ER) | payer MEDICAID, SELFPAY ==
[2021-07-07 16:57] VITALS: BP 110/87; PULSE 93; RESP 18; TEMP 37.2; O2SAT 99; BMI 39.0
[2021-07-07 17:12] LABS: MANUAL DIFF FLAG NO
[2021-07-07 17:15] LABS: Basophils Percent Auto 0.2 % (0-2); Eosinophils Percent Auto 0.1 % (0-4); Hemoglobin 13.6 g/dl (14.0-18.0); Imm Gran Abs Auto 0.06 X10*3/uL (0.00-0.03); Imm Gran Pct Auto 0.4 % (0.0-0.4); Lymphocytes Absolute Auto 4.2 X10*3/uL (1.2-4.9); Lymphocytes Percent Auto 28.4 % (20-40); Mean Corpuscular HGB Conc 33.2 g/dl (31.0-36.0); Mean Corpuscular Hemoglobin 26.6 pg (27.0-33.0); Mean Corpuscular Volume 80.2 fL (80.0-98.0); Mean Platelet Volume 10.8 fL (9.4-12.4); Monocytes Absolute Auto 0.9 X10*3/uL (0.1-1.2); Monocytes Percent Auto 6.3 % (2-11); Neutrophils Absolute Auto 9.5 x10*3/uL (2.0-8.3); Neutrophils Percent Auto 64.6 % (45-73); Platelet Count 267 X10*3/uL (160-400); Red Blood Count 5.11 X10*6/uL (4.60-5.80); Red Cell Distribution Width 13.8 % (11.0-16.0); White Blood Count 14.7 X10*3/uL (4.8-10.8)
[2021-07-07 17:37] LABS: Alanine Aminotransferase 28 U/L (0-40); Albumin Level 4.2 g/dL (3.5-5.0); Alkaline Phosphatase 84 U/L (39-117); Anion Gap 12 (12-20); Aspartate Amino Transferase 27 U/L (5-37); Bilirubin Total 0.8 mg/dL (0.0-1.0); Blood Urea Nitrogen 9 mg/dL (9-16); Calcium 9.3 mg/dL (8.4-10.2); Carbon Dioxide 20 mmol/L (22-29); Chloride 111 mmol/L (96-108); Creatinine Clr Calc Pharmacy 128.7; Estimated Glomerular Filt Rate > 60; Glucose Random 106 mg/dL (60-115); Potassium 3.9 mmol/L (3.3-5.1); Sodium 139 mmol/L (135-145)
== END 2021-07-08 02:46 | disposition left against medical advice (07) ==
PROVIDERS: Emergency Provider Emergency Medicine
DX: K92.0 Hematemesis (principal); R10.9 Unspecified abdominal pain; Z79.899 Other long term (current) drug therapy
CPT/HCPCS: 36415; 80053; 85025; 99283

== ENCOUNTER 2021-07-08 07:58 | Observation (INO) | payer MEDICAID, SELFPAY ==
--- NOTE | ~2021-07-08 | CT_ITS ---
EXAMINATION: CT ABDOMEN AND PELVIS WITHOUT CONTRAST CLINICAL INFORMATION: Nausea, vomiting, diarrhea COMPARISON: 03/02/2019 TECHNIQUE: Multidetector volumetric imaging was performed from the superior aspect of the liver through the pubic symphysis. Sagittal and coronal reformatted images were obtained on the technologist's workstation. This CT examination was performed using dose optimization techniques as appropriate, variously including the following: *Automated exposure control *Adjustment of mA and/or kV according to patient size (this includes techniques or standardized protocols for targeted exams where dose is matched to indication/reason for exam; i.e. extremities or head) *Use of iterative reconstruction technique DLP: 842 mGy-cm FINDINGS: LUNG BASES: The visualized lung bases are unremarkable. LIVER, GALLBLADDER, AND BILIARY TREE: Some scattered areas of low density. Likely of no clinical significance. Also seen previously The gallbladder is unremarkable with no evidence of radiopaque gallstones, gallbladder wall thickening, or obvious pericholecystic inflammatory changes. PANCREAS: Unremarkable. SPLEEN: Unremarkable. ADRENAL GLANDS: Unremarkable. KIDNEYS AND URETERS: The kidneys are normal in size, shape, and attenuation. No hydronephrosis, hydroureter, or calculi seen. No perinephric stranding. BLADDER: Unremarkable. GASTROINTESTINAL TRACT: The small and large bowel are unremarkable. The appendix is unremarkable. ABDOMINAL WALL: No significant hernia is appreciated. LYMPH NODES: Normal. VASCULAR: Unremarkable. PELVIC VISCERA: Unremarkable. OSSEOUS STRUCTURES: Unremarkable. CT/CT abdomen pelvis wo con IMPRESSION: No significant abnormality. Fleischner guidelines were followed.
[2021-07-08 08:04] VITALS: BP 142/84; PULSE 95; RESP 18; TEMP 36.7; O2SAT 98; BMI 37.6
--- NOTE | 2021-07-08 08:08 | PC.NURSE ---
pt verbally abusive and aggressive to the pattern grader supervisor and pct. pt asked if he smokes marijuana and pt began screaming and yelling at staff. pt was not redirectable, bp cuff removed d/t pt moving so much. attempted to calm pt and recheck pt. pt continues to scream and yell at staff.
[2021-07-08] MEDS: 0.9 % Sodium Chloride 1,000 ML 999 ML IV ×2 (09:38→10:58)
[2021-07-08 09:41] LABS: OBS Int Ctl Valid YES; OBS1 NEGATIVE (NEGATIVE)
--- NOTE | 2021-07-08 09:41 | ED.ABDPAIN ---
HPI - Abdominal Pain General Chief Complaint: Abdominal Pain Stated Complaint: gastroritis, vomittin blood Time Seen by Provider: 07/08/21 08:54 Source: patient Mode of arrival: ambulatory History of Present Illness HPI narrative: 30-year-old male with past medical history of asthma, hypokalemia, gastritis, presenting to the ED complaining of abdominal pain, nausea, bloody emesis, diarrhea with brbpr x1 since yesterday. Patient was recently seen and treated in our ED for similar symptoms. Patient does report marijuana use however does not believe this has anything to do with symptoms. Denies fever, chills, dysuria/hematuria MD elicited complaint: abdominal pain and flank pain Onset (ago): day(s) Related Data Previous Rx's Medication Instructions Recorded cyclobenzaprine 10 mg tablet 10 mg PO TID PRN #10 tab 04/04/20 omeprazole 40 mg capsule,delayed 40 mg PO DAILY #30 cap 04/04/20 release ondansetron 4 mg disintegrating 4 mg PO Q6H PRN #10 tab 04/04/20 tablet sucralfate 1 gram tablet (Carafate) 1 g PO TID #30 tab 04/04/20 ibuprofen 600 mg tablet 600 mg PO Q6H PRN #20 tab 06/21/20 azithromycin 250 mg tablet See Rx Instructions .ROUTE 08/29/20 (Zithromax Z-Joes) .COMPLEX #6 tab benzonatate 100 mg capsule 100 mg PO TID PRN #14 cap 08/29/20 (Tessalon Perles) prednisone 20 mg tablet 40 mg PO DAILY #10 tab 08/29/20 benzonatate 100 mg capsule 100 mg PO TID PRN #10 cap 05/21/21 omeprazole 40 mg capsule,delayed 40 mg PO DAILY 30 Days #30 cap 07/07/21 release Allergies Allergy/AdvReac Type Severity Reaction Status Date / Time No Known Allergies Allergy Verified 07/07/21 16:57 [No Known Allergies*] Review of Systems Review of Systems Constitutional: No Fever, No Chills, No Fatigue, No Malaise ENT/Mouth: No Ear Pain, No Nasal Congestion, No sore throat, No Rhinorrhea, No Swallowing Difficulty Eyes: No Eye Pain, No Swelling, No Redness, No Vision Changes Cardiovascular: No Chest Pain, No SOB, No Edema, No Palpitations Respiratory: No Cough, No Sputum, No Dyspnea Gastrointestinal: + Nausea, + Vomiting, + Diarrhea, No Constipation, + Abdominal pain, + Hematochezia, +brbpr Genitourinary: No Dysuria, No Urinary Frequency, No Hematuria, No Urinary Incontinence/retention, No Flank Pain Musculoskeletal: No joint pain, No Myalgias, No Joint Swelling Skin: No Skin Lesions, No rash Neuro: No Weakness, No Dizziness, No Headache Yes all other systems are reviewed and are negative [facility] Past Medical History Attestation statement: The following information was validated with the patient. Medical History Asthma Hypokalemia Social History Social History Alcohol intake: never Patient Tobacco Use Status: Never used Tobacco Use of substances other than those prescribed or required for medical reasons: No Substance Use Type: Marijuana Advance Directives: No Advance Directives Information Provided: No Physical Exam ED Vital Signs: Vital Signs - 24 hr 07/08/21 08:04 07/08/21 10:16 Temperature 98.1 F Pulse Rate 95 94 Respiratory Rate 18 18 Blood Pressure 142/84 H 142/88 H Pulse Oximetry 98 100 BMI result Body Mass Index 37.6 Const Other: pale General: cooperative, healthy appearing, no acute distress and diaphoretic Orientation/consciousness: patient oriented x3 Limitations: no limitations HENMT Head: Yes normal to inspection and Yes atraumatic Ears: hearing grossly normal bilaterally General nose exam: Normal external nose present Face and sinus: Yes normal facial exam Eyes General: appearance normal, both eyes and all related structures EOM: EOMs intact bilaterally Neck Neck: Yes normal visual inspection and Yes no meningeal signs Resp Effort & Inspection: normal respiratory effort and no respiratory distress Cardio Rate: regular rate Heart sounds: S1 normal heart sound present and S2 normal heart sound present GI Inspection: Yes normal to inspection Palpation (GI): Soft to palpation, Tenderness to palpation present (GI) in the LLQ and periumbilically; Negative for with no rebound tenderness, no guarding and not rigid General: Yes no CVA tenderness Back/Spine/Pelvis Back: no CVA tenderness Skin Rashes: no rashes Wounds: no wounds Neuro General: patient oriented x3, tone normal and no meningeal signs Gait exam (Neuro): Normal gait present Extrem General: Yes normal to inspection Course Course Course Narrative: -951--mild leukocytosis of 12.6 improved from yesterday >likely reactive from nausea/vomiting. low concern for severe sepsis -labs otherwise unremarkable. Occult stool negative CT abdomen pelvis wo con IMPRESSION: No significant abnormality.? ? Fleischner guidelines were followed. -1129--on re-evaluation patient reports continued abdominal discomfort. IM Haldol, IV Reglan and Bentyl ordered. Will p.o. challenge -1226--on re-evaluation patient had emesis immediately after trying rufus pranay. Will admit for further management MDM - Abdominal Pain MDM Narrative Medical decision making narrative: 30-year-old male with past medical history of asthma, hypokalemia, gastritis, presenting to the ED complaining of abdominal pain, nausea, bloody emesis, diarrhea with brbpr x1 since yesterday. On exam vital signs stable, patient appeared diaphoretic and pale, abdomen tender to LLQ/periumbilical, no rebound or guarding. Concern for gastroenteritis vs gastritis vs cyclical vomiting vs GI bleed. Hematemesis likely from persistent nausea/vomiting. Low concern for Boerhaave's. Rule out metabolic/infectious etiologies Plan: Labs, UA, tox screen, IVF, antiemetics, pain medication, CT AP, re-evaluate Differential Diagnosis Differential diagnosis: Likely abdominal pain, diverticulitis, gastroenteritis, gastritis and pancreatitis Medical Records Attestation: I reviewed the patient's medical records. Lab Data Attestation: I reviewed the patient's lab results. Result diagrams: 07/08/21 09:39 07/08/21 09:39 Labs: Lab Results 07/08/21 07/08/21 07/08/21 Range/Units 09:32 09:39 09:39 WBC 12.6 H (4.8-10.8) X10*3/uL RBC 5.18 (4.60-5.80) X10*6/uL Hgb 13.9 L (14.0-18.0) g/dl Hct 41.8 L (42.0-52.0) % MCV 80.7 (80.0-98.0) fL MCH 26.8 L (27.0-33.0) pg MCHC 33.3 (31.0-36.0) g/dl RDW 14.0 (11.0-16.0) % Plt Count 246 (160-400) X10*3/uL MPV 11.2 (9.4-12.4) fL Immature Gran % (Auto) 0.3 (0.0-0.4) % Neut % (Auto) 67.9 (45-73) % Lymph % (Auto) 25.2 (20-40) % [place] % (Auto) 6.1 (2-11) % Eos % (Auto) 0.1 (0-4) % Baso % (Auto) 0.4 (0-2) % Lymph # (Auto) 3.2 (1.2-4.9) X10*3/uL [place] # (Auto) 0.8 (0.1-1.2) X10*3/uL Eos # (Auto) 0.0 (0.0-0.4) X10*3/uL Baso # (Auto) 0.1 (0.0-0.2) X10*3/uL Abs Immat Gran (auto) 0.04 H (0.00-0.03) X10*3/uL Absolute Neuts (auto) 8.5 H (2.0-8.3) x10*3/uL Absolute Nucleated RBC 0.000 (0.0-0.012) X10*3/uL Nucleated RBC % (auto) 0.0 (0.0-0.2) /100WBC Sodium 140 (135-145) mmol/L Potassium 3.9 (3.3-5.1) mmol/L Chloride 110 H (96-108) mmol/L Carbon Dioxide 21 L (22-29) mmol/L Anion Gap 13 (12-20) BUN 9 (9-16) mg/dL Creatinine 1.14 (0.5-1.4) mg/dL Estim Creat Clear Calc 128.4 Estimated GFR > 60 Random Glucose 91 (60-115) mg/dL Calcium 9.4 (8.4-10.2) mg/dL Magnesium 1.9 (1.6-2.6) mg/dL Total Bilirubin 1.1 H (0.0-1.0) mg/dL Direct Bilirubin 0.5 (0.0-0.5) mg/dL AST 32 (5-37) U/L ALT 36 (0-40) U/L Alkaline Phosphatase 84 (39-117) U/L Total Protein 6.9 (6.5-8.0) g/dL Albumin 4.2 (3.5-5.0) g/dL Lipase 14 (8-78) U/L Stool Occult Blood NEGATIVE (NEGATIVE) Discharge Plan Discharge Clinical Impression: Cyclical vomiting Patient Disposition: Admitted As Inpatient Prescriptions: No Action azithromycin [Zithromax Z-Jose] 250 mg tablet See Rx Instructions .ROUTE .COMPLEX Qty: 6 0RF Rx Instructions: take 500 mg today (day 1), then 250 mg for 4 days (days 2-5) prednisone 20 mg tablet 40 mg PO DAILY Qty: 10 0RF benzonatate [Tessalon Perles] 100 mg capsule 100 mg PO TID PRN (Reason: cough) Qty: 14 0RF ondansetron 4 mg tablet,disintegrating 4 mg PO Q6H PRN (Reason: nausea and vomiting) Qty: 10 0RF sucralfate [Carafate] 1 gram tablet 1 g PO TID Qty: 30 0RF omeprazole 40 mg capsule,delayed release(DR/EC) 40 mg PO DAILY Qty: 30 0RF cyclobenzaprine 10 mg tablet 10 mg PO TID PRN (Reason: muscle spasm) Qty: 10 0RF ibuprofen 600 mg tablet 600 mg PO Q6H PRN (Reason: pain) Qty: 20 0RF benzonatate 100 mg capsule 100 mg PO TID PRN (Reason: cough) Qty: 10 0RF omeprazole 40 mg capsule,delayed release(DR/EC) 40 mg PO DAILY 30 Days Qty: 30 0RF
[2021-07-08 09:45] LABS: MANUAL DIFF FLAG NO
[2021-07-08 09:47] LABS: Basophils Absolute Auto 0.1 X10*3/uL (0.0-0.2); Basophils Percent Auto 0.4 % (0-2); Eosinophils Percent Auto 0.1 % (0-4); Hematocrit 41.8 % (42.0-52.0); Hemoglobin 13.9 g/dl (14.0-18.0); Imm Gran Abs Auto 0.04 X10*3/uL (0.00-0.03); Imm Gran Pct Auto 0.3 % (0.0-0.4); Lymphocytes Absolute Auto 3.2 X10*3/uL (1.2-4.9); Lymphocytes Percent Auto 25.2 % (20-40); Mean Corpuscular HGB Conc 33.3 g/dl (31.0-36.0); Mean Corpuscular Hemoglobin 26.8 pg (27.0-33.0); Mean Corpuscular Volume 80.7 fL (80.0-98.0); Mean Platelet Volume 11.2 fL (9.4-12.4); Monocytes Absolute Auto 0.8 X10*3/uL (0.1-1.2); Monocytes Percent Auto 6.1 % (2-11); Neutrophils Absolute Auto 8.5 x10*3/uL (2.0-8.3); Neutrophils Percent Auto 67.9 % (45-73); Platelet Count 246 X10*3/uL (160-400); Red Blood Count 5.18 X10*6/uL (4.60-5.80); White Blood Count 12.6 X10*3/uL (4.8-10.8)
[2021-07-08] MEDS: Magnesium Hydrox/Alum Hydrox 30 ML ORAL.SUSP PO (09:49)
[2021-07-08] MEDS: ondansetron HCL 4 MG/2 ML VIAL IVPUSH (09:49)
[2021-07-08] MEDS: Famotidine/PF 20 MG/2 ML VIAL IVPUSH (09:49)
[2021-07-08] MEDS: Lidocaine HCl Viscous 2 % 15 ML SOLUTION MUCOUS MEM (09:49)
[2021-07-08] MEDS: diphenhydrAMINE HCL 50 MG/ML VIAL 25 MG IVPUSH (09:49)
[2021-07-08 10:10] LABS: Alanine Aminotransferase 36 U/L (0-40); Albumin Level 4.2 g/dL (3.5-5.0); Alkaline Phosphatase 84 U/L (39-117); Anion Gap 13 (12-20); Aspartate Amino Transferase 32 U/L (5-37); Bilirubin Direct 0.5 mg/dL (0.0-0.5); Bilirubin Total 1.1 mg/dL (0.0-1.0); Blood Urea Nitrogen 9 mg/dL (9-16); Calcium 9.4 mg/dL (8.4-10.2); Carbon Dioxide 21 mmol/L (22-29); Chloride 110 mmol/L (96-108); Creatinine Clr Calc Pharmacy 128.4; Estimated Glomerular Filt Rate > 60; Glucose Random 91 mg/dL (60-115); Lipase 14 U/L (8-78); Magnesium 1.9 mg/dL (1.6-2.6); Potassium 3.9 mmol/L (3.3-5.1); Sodium 140 mmol/L (135-145); Total Protein 6.9 g/dL (6.5-8.0)
[2021-07-08] MEDS: LORazepam 2 MG/ML VIAL 1 MG IVPUSH (10:15)
[2021-07-08 10:16] VITALS: BP 142/88; PULSE 94; RESP 18; O2SAT 100
--- NOTE | 2021-07-08 10:20 | PC.NURSE ---
Patient reports abdominal pain, nausea, and vomiting. Patient is very restless and unable to stay still at this time. Placed IV and shahid labs, hung NS1L and medicated with Zofran, famotidine, and Benadryl. Patient medicated also with Mag/Lidocaine. Shortly after patient vomited PO meds. Patient remains restless at this time. Respirations are regular and even. Skin PWD. Vitals WNL. Will continue to monitor.
--- NOTE | 2021-07-08 11:10 | PC.NURSE ---
Patient appears more comfortable and less restless at this time. No distress noted. will continue to monitor.
[2021-07-08] MEDS: Haloperidol Lactate 5 MG/ML VIAL IM (11:51)
[2021-07-08] MEDS: Metoclopramide HCl 10 MG/2 ML VIAL IVPUSH (11:51)
[2021-07-08] MEDS: Dicyclomine HCl 10 MG CAPSULE 20 MG PO (11:52)
[2021-07-08 12:50] VITALS: BP 114/64; PULSE 80; RESP 16; TEMP 36.8; O2SAT 99
[2021-07-08 13:20] LABS: COVID-19 Test Negative (Negative); IDNOW Serial# 16C4AD1C
--- NOTE | 2021-07-08 13:21 | P.HPHOSP_ITS ---
History of Present Illness Date of Service: 07/08/21 Attending physician on admission: Chrystal Schmitz Chief Complaint: Intractable nausea vomiting, diarrahe 30-year-old male with past medical history of asthma, hypokalemia, gastritis, presenting to the ED complaining of abdominal pain, nausea, Saying bloody emesis, diarrhea with possible blood x1 since yesterday He says that he has history of gastritis and get some discomfort on and off , and was told out patiently not to eat red meat unclear reason and by chance he eat red meat 3 days ago-since then he started having above symptoms intractable nausea vomiting and also diarrhea afterwards. He also complains or discomfort in the epigastric area, claims that he cannot eat anything because of intractable nausea vomiting. Patient does report marijuana use however does not believe this has anything to do with symptoms. ? Denies fever, chills, dysuria,hematuria, shortness of breath or chest pain or weakness or numbness or headache. Denies any sick contact or any antibiotic use or eating any other outside food. Or any family member with similar symptoms. Family history: Grandma has history of gastric cancer . Review of Systems Review of Systems: As above. Yes all other systems are reviewed and are negative [facility] Medical History Asthma Hypokalemia Pertinent family history: Grandmother had gastric cancer, . Social History Alcohol intake: never Patient Tobacco Use Status: Never used Tobacco Use of substances other than those prescribed or required for medical reasons: No Substance Use Type: Marijuana Advance Directives: No Advance Directives Information Provided: No Meds Allergies Allergy/AdvReac Type Severity Reaction Status Date / Time No Known Allergies Allergy Verified 07/07/21 16:57 [No Known Allergies*] Active Medications: Current Medications Lactated Ringer's (Lr) 1,000 mls @ 100 mls/hr IVCONT .Q10H LULY Lidocaine (Lidocaine 4 % Patch Adh..Patch) 1 patch TRANSDERMA DAILY LULY; Protocol Morphine Sulfate (Morphine Sulfate 2 Mg/Ml Cartridge) 2 mg IVPUSH Q4H PRN; Protocol PRN Reason: Pain, Moderate (Pain Scale 4-6 Ondansetron HCl (Ondansetron Hcl 4 Mg/2 Ml Vial) 4 mg IVPUSH Q4H PRN PRN Reason: Nausea and Vomiting Pantoprazole Sodium (Pantoprazole Sodium 40 Mg/10 Ml Vial) 40 mg IVPUSH BID [facility] Pharmacy Consult (Consult Rx Perform Med Rec) 1 each MISCELLANE ONCE PRN PRN Reason: Consult order Sodium Chloride (0.9 % Sodium Chloride Flush 3 Ml Syringe) 3 ml IVFLUSH QSHIFT [facility] Home Medications Medication Instructions Recorded Confirmed Last Taken Type albuterol sulfate 90 mcg/actuation 2 puff PO Q4-6H PRN 07/08/21 07/08/21 Unknown History aerosol inhaler (ProAir HFA) quetiapine 25 mg tablet 1 tab PO DAILY PRN 07/08/21 07/08/21 Unknown History Physical Exam Vital Signs and Narrative: Vital Signs: Last Vital Signs Temp 98.3 F 07/08/21 12:50 Pulse 80 07/08/21 12:50 Resp 16 07/08/21 12:50 BP 114/64 07/08/21 12:50 Pulse Ox 99 07/08/21 12:50 BMI result Body Mass Index 37.6 Appearance: Alert.? Oriented X3.?anxious.? Eyes: Pupils equal, round and reactive to light.? Sclera nonicteric.? ENT: Pharynx normal.? Moist mucous membranes. cvs: rrr, [id number]. res: fair air entry ,no rales or wheezing abd: no rebound or guarding ,nt, bs present. ext pulses present , no cyanosis. neuro: axo3 , nonfocal. Results Labs CBC and Chem 7: 07/08/21 09:39 07/08/21 09:39 Labs: Laboratory Results - last 24 hr 07/08/21 07/08/21 07/08/21 09:32 09:39 09:39 MCV 80.7 MCH 26.8 L MCHC 33.3 RDW 14.0 Plt Count 246 MPV 11.2 Immature Gran % (Auto) 0.3 Neut % (Auto) 67.9 Lymph % (Auto) 25.2 [place] % (Auto) 6.1 Eos % (Auto) 0.1 Baso % (Auto) 0.4 Lymph # (Auto) 3.2 [place] # (Auto) 0.8 Eos # (Auto) 0.0 Baso # (Auto) 0.1 Abs Immat Gran (auto) 0.04 H Absolute Neuts (auto) 8.5 H Absolute Nucleated RBC 0.000 Nucleated RBC % (auto) 0.0 Anion Gap 13 Estim Creat Clear Calc 128.4 Estimated GFR > 60 Random Glucose 91 Calcium 9.4 Magnesium 1.9 Total Bilirubin 1.1 H Direct Bilirubin 0.5 AST 32 ALT 36 Alkaline Phosphatase 84 Total Protein 6.9 Albumin 4.2 Lipase 14 Stool Occult Blood NEGATIVE COVID-19 ([facility]) COVID-19 Clin Com 07/08/21 12:55 MCV MCH MCHC RDW Plt Count MPV Immature Gran % (Auto) Neut % (Auto) Lymph % (Auto) [place] % (Auto) Eos % (Auto) Baso % (Auto) Lymph # (Auto) [place] # (Auto) Eos # (Auto) Baso # (Auto) Abs Immat Gran (auto) Absolute Neuts (auto) Absolute Nucleated RBC Nucleated RBC % (auto) Anion Gap Estim Creat Clear Calc Estimated GFR Random Glucose Calcium Magnesium Total Bilirubin Direct Bilirubin AST ALT Alkaline Phosphatase Total Protein Albumin Lipase Stool Occult Blood COVID-19 ([facility]) Negative COVID-19 Clin Com See Note Imaging Radiologist's Impressions: Impressions Abdomen/Pelvis CT 07/08/21 09:26 IMPRESSION: No significant abnormality. Fleischner guidelines were followed. Assessment and Plan (1) Cyclical vomiting: Status: Acute Plan 30-year-old male with past medical history of asthma, hypokalemia, gastritis, presenting to the ED complaining of abdominal pain, nausea, Saying bloody emesis, diarrhea with possible blood x1. Possible gastroenteritis-viral versus gastritis versus food related versus marijuana also might be contributing. mild leukocytosis which seems better than before. No fevers He attributes above to use of red meat. Uses marijuana every day H&H stable,fobt neg, urine toxicology, bowel studies ordered. Started on PPI, antiemetics, pain control and lidocaine patch. Bowel rest Gentle hydration GI evaluation History of asthma: Stable Continue home meds Morbid obesity: Encouraged to cut down calories and weight loss, consider outpatient bariatric evaluation. DVT prophylaxis patient is young and ambulatory-encouraged for ambulation. Avoid chemoprophylaxis. Above management discussed with the patient in detail length he understand and in agreement with the above plan, time spent 70 minute. Quality Stroke Does the patient have a stroke diagnosis?: No VTE Prior VTE?: No VTE Risk Level:: Medical - low VTE Device Contraindication: Treatment Not Indicated VTE Drug Contraindication: Treatment Not Indicated
--- NOTE | 2021-07-08 13:28 | PHA.MEDREC ---
Pharmacy Consult ? Medication Reconciliation Pharmacy has completed the medication reconciliation. Pt currently does not take any medications, occasionally uses proair and seroquel if needed. During his trip to the [facility] he was told by elders that he should not be taking medications
[2021-07-08] MEDS: Lactated Ringers 1,000 ML 100 ML IVCONT (13:38)
[2021-07-08] MEDS: Morphine Sulfate 2 MG/ML CARTRIDGE IVPUSH (18:27)
[2021-07-08 19:42] VITALS: BP 106/56; PULSE 63; RESP 16; TEMP 36.6; O2SAT 97
[2021-07-08] MEDS: Pantoprazole Sodium 40 MG/10 ML VIAL IVPUSH (21:19)
[2021-07-08 21:33] LABS: Appearance Urine CLEAR; Color Urine YELLOW; Glucose Urine UA NEG (NEG); Leukocyte Esterase Urine NEG (NEG); Nitrite Urine NEG (NEG); PH 5.5 (5.0-8.0); Specific Gravity - Urine >= 1.030 (1.005-1.025); Urine Blood NEG (NEG); Urine Ketones 15 MG/DL (NEG); Urine Protein NEG (NEG-TRACE)
[2021-07-08 21:50] LABS: Amphetamine Screen Urine Not Detected (Not Detect); Barbiturates, Urine Not Detected (Not Detect); Benzodiazepines Screen Urine Not Detected (Not Detect); Cannabinoid Screen Urine POSITIVE (Not Detect); Cocaine Screen Urine Not Detected (Not Detect); Fentanyl, urine Not Detected (Not Detect); Opiate Screen Urine Not Detected (Not Detect); Phencyclidine Screen Urine Not Detected (Not Detect)
[2021-07-08 22:33] VITALS: BP 130/80; PULSE 65; O2SAT 97
[2021-07-08 23:58] VITALS: BP 110/67; PULSE 63; RESP 12; O2SAT 96
[2021-07-09] MEDS: Lactated Ringers 1,000 ML 100 ML IVCONT (01:45)
[2021-07-09] MEDS: Morphine Sulfate 2 MG/ML CARTRIDGE IVPUSH (01:49)
[2021-07-09] MEDS: QUEtiapine Fumarate 25 MG TABLET PO (01:56)
--- NOTE | 2021-07-09 02:11 | PC.NURSE ---
Patient alert and oriented x 3. Patient was able to take a pill and keep it down. tele: sinus rythym Patient c/o abdominal pain 09/30 medicated with morphine with relief. Patient on LR at 100cc/hr. Will continue to monitor. Patient being transferred to [place] [id number] report called.
[2021-07-09 02:37] VITALS: BP 146/86; PULSE 69; RESP 16; O2SAT 94
[2021-07-09] MEDS: LORazepam 0.5 MG TABLET PO (06:42)
[2021-07-09 07:02] LABS: Anion Gap 10 (12-20); Blood Urea Nitrogen 7 mg/dL (9-16); Calcium 8.7 mg/dL (8.4-10.2); Carbon Dioxide 25 mmol/L (22-29); Chloride 110 mmol/L (96-108); Creatinine Clr Calc Pharmacy 164.5; Estimated Glomerular Filt Rate > 60; Glucose Random 78 mg/dL (60-115); Potassium 4.1 mmol/L (3.3-5.1); Sodium 141 mmol/L (135-145)
--- NOTE | 2021-07-09 07:40 | PC.NURSE ---
Patient pacing in bedroom stating he needs to leave the hospital. Patient pulled out own IV access and cardiac monitor technician. Dr. Schmitz made aware and at bedside. Patient still stating he needs to leave and go home. Patient made aware of risks of leaving AMA. Patient verbalized understanding and still wanted to leave. AMA paperwork signed.
--- NOTE | 2021-07-09 07:51 | PM.DS ---
DS: Providers Provider Date of Service: 07/09/21 Date of admission: 07/08/21 13:13 Primary care physician: Unknown Physician Consults: 07/08/21 13:18 Consult to Gastroenterology [place]ine Consulting [place] [facility] [facility] [place] Reason for consultation: nausea /vomiting Has provider been notified: No DS: Diagnosis Discharge Diagnosis (1) Cyclical vomiting: Status: Acute DS: Summary Hospital Course Hospital Course: 30-year-old male with past medical history of asthma, hypokalemia, gastritis, presenting to the ED complaining of abdominal pain, nausea, Saying? bloody emesis, diarrhea with possible blood x1 since yesterday He says that he has history of gastritis and get some discomfort on and off , and was told out patiently not to eat red meat unclear reason and by chance he eat red meat 3 days ago-since then he started having above symptoms intractable nausea vomiting and also diarrhea afterwards. He also complains or discomfort in the epigastric area, claims that he cannot eat anything because of intractable nausea vomiting. ?Patient does report marijuana use however does not believe this has anything to do with symptoms. ? Denies fever, chills, dysuria,hematuria, shortness of breath or chest pain or weakness or numbness or headache. Denies any sick contact or any antibiotic use or eating any other outside food.? Or any family member with similar symptoms. Family history: Grandma has history of gastric cancer . Hospital course: Patient was admitted for cyclic vomiting possible related to viral gastroenteritis versus gastritis versus marijuana use might be contributing. Patient was given supportive care with antiemetics, pain medication , bowel rest -this morning patient is insisting to go home does not give any specific reason. Risks of leaving against medical advice including persistent nausea vomiting as well as dehydration and further worsening of his condition discussed with him in detail-he understand and still wants to leave. Advised to go to nearest number emergency room for further management. He also says that he will obtain appointment outpatient GI evaluation on his own. Above management discussed with the patient in detail length he understand and in agreement with the above plan, time spent 50 minutes and 50% time spent on counseling. Significant findings: As above. Procedures performed: None. Treatment and response: As above. Complications: None. Time Spent with Patient Time attestation: Total time spent providing and/or coordinating discharge services: Discharge coordination time: Greater than 30 minutes Quality: Safe Use of Opioids Does Pt have an Active Cancer Diagnosis on the Problem List?: No Quality: Stroke Does the patient have a stroke diagnosis?: No Physical Exam Vital Signs: Vital Signs: Last Vital Signs Temp 98 F 07/08/21 19:42 Pulse 69 07/09/21 02:37 Resp 16 07/09/21 02:37 BP 146/86 H 07/09/21 02:37 Pulse Ox 94 07/09/21 02:37 BMI result Body Mass Index 37.6 Currently refuses physical exam. DS: Data Data Completed and Pending Labs on day of discharge: Laboratory Results - last 24 hr 07/08/21 07/08/21 07/08/21 09:32 09:39 09:39 WBC 12.6 H RBC 5.18 Hgb 13.9 L Hct 41.8 L MCV 80.7 MCH 26.8 L MCHC 33.3 RDW 14.0 Plt Count 246 MPV 11.2 Immature Gran % (Auto) 0.3 Neut % (Auto) 67.9 Lymph % (Auto) 25.2 [place] % (Auto) 6.1 Eos % (Auto) 0.1 Baso % (Auto) 0.4 Lymph # (Auto) 3.2 [place] # (Auto) 0.8 Eos # (Auto) 0.0 Baso # (Auto) 0.1 Abs Immat Gran (auto) 0.04 H Absolute Neuts (auto) 8.5 H Absolute Nucleated RBC 0.000 Nucleated RBC % (auto) 0.0 Sodium 140 Potassium 3.9 Chloride 110 H Carbon Dioxide 21 L Anion Gap 13 BUN 9 Creatinine 1.14 Estim Creat Clear Calc 128.4 Estimated GFR > 60 Random Glucose 91 Calcium 9.4 Magnesium 1.9 Total Bilirubin 1.1 H Direct Bilirubin 0.5 AST 32 ALT 36 Alkaline Phosphatase 84 Total Protein 6.9 Albumin 4.2 Lipase 14 Urine Color Urine Appearance Urine pH Ur Specific [place] Urine Protein Urine Glucose (UA) Urine Ketones Urine Blood Urine Nitrite Ur Leukocyte Esterase Stool Occult Blood NEGATIVE Urine Opiates Screen Urine Fentanyl Screen Ur Barbiturates Screen Ur Phencyclidine Scrn Ur Amphetamines Screen U Benzodiazepines Scrn Urine Cocaine Screen U Marijuana (THC) Screen COVID-19 (BETTIE) COVID-19 Clin Com 07/08/21 07/08/21 07/08/21 12:55 21:19 21:19 WBC RBC Hgb Hct MCV MCH MCHC RDW Plt Count MPV Immature Gran % (Auto) Neut % (Auto) Lymph % (Auto) [place] % (Auto) Eos % (Auto) Baso % (Auto) Lymph # (Auto) [place] # (Auto) Eos # (Auto) Baso # (Auto) Abs Immat Gran (auto) Absolute Neuts (auto) Absolute Nucleated RBC Nucleated RBC % (auto) Sodium Potassium Chloride Carbon Dioxide Anion Gap BUN Creatinine Estim Creat Clear Calc Estimated GFR Random Glucose Calcium Magnesium Total Bilirubin Direct Bilirubin AST ALT Alkaline Phosphatase Total Protein Albumin Lipase Urine Color YELLOW Urine Appearance CLEAR Urine pH 5.5 Ur Specific [place] >= 1.030 H Urine Protein NEG Urine Glucose (UA) NEG Urine Ketones 15 Urine Blood NEG Urine Nitrite NEG Ur Leukocyte Esterase NEG Stool Occult Blood Urine Opiates Screen Not Detected Urine Fentanyl Screen Not Detected Ur Barbiturates Screen Not Detected Ur Phencyclidine Scrn Not Detected Ur Amphetamines Screen Not Detected U Benzodiazepines Scrn Not Detected Urine Cocaine Screen Not Detected U Marijuana (THC) Screen POSITIVE H COVID-19 (BETTIE) Negative COVID-19 [employer] See Note 07/09/21 05:29 WBC RBC Hgb Hct MCV MCH MCHC RDW Plt Count MPV Immature Gran % (Auto) Neut % (Auto) Lymph % (Auto) [place] % (Auto) Eos % (Auto) Baso % (Auto) Lymph # (Auto) [place] # (Auto) Eos # (Auto) Baso # (Auto) Abs Immat Gran (auto) Absolute Neuts (auto) Absolute Nucleated RBC Nucleated RBC % (auto) Sodium 141 Potassium 4.1 Chloride 110 H Carbon Dioxide 25 Anion Gap 10 L BUN 7 L Creatinine 0.89 Estim Creat Clear Calc 164.5 Estimated GFR > 60 Random Glucose 78 Calcium 8.7 D Magnesium Total Bilirubin Direct Bilirubin AST ALT Alkaline Phosphatase Total Protein Albumin Lipase Urine Color Urine Appearance Urine pH Ur Specific [place] Urine Protein Urine Glucose (UA) Urine Ketones Urine Blood Urine Nitrite Ur Leukocyte Esterase Stool Occult Blood Urine Opiates Screen Urine Fentanyl Screen Ur Barbiturates Screen Ur Phencyclidine Scrn Ur Amphetamines Screen U Benzodiazepines Scrn Urine Cocaine Screen U Marijuana (THC) Screen COVID-19 (BETTIE) COVID-19 NebuAd Com Discharge Plan Discharge Patient Disposition: Left Against Medical Advice Discharge Diagnosis: Cyclic vomiting Referrals: Physician,Unknown J [Primary Care Provider] - 1 Week Discharge Medications: New omeprazole 20 mg capsule,delayed release(DR/EC) 20 mg PO BID Qty: 60 0RF ondansetron HCl 4 mg tablet 4 mg PO BID PRN (Reason: nausea and vomiting) 2 Days Qty: 4 0RF Continued quetiapine 25 mg tablet 1 tab PO DAILY PRN (Reason: Anxiety) 0RF albuterol sulfate [ProAir HFA] 90 mcg/actuation HFA aerosol inhaler 2 puff PO Q4-6H PRN (Reason: Shortness Of Breath) 0RF Discharge Orders: Discharge Order (Routine); Ordered 07/09/21 Ordered By: Chrystal Schmitz Diet: advance to usual diet Activity on Discharge: As tolerated Care Plan Goals: Patient was admitted for cyclic vomiting possible related to viral gastroenteritis versus gastritis versus marijuana use might be contributing. Patient was given supportive care with antiemetics, pain medication , bowel rest -this morning patient is insisting to go home does not give any specific reason. Risks of leaving against medical advice including persistent nausea vomiting as well as dehydration and further worsening of his condition discussed with him in detail-he understand and still wants to leave. Advised to go to nearest number emergency room for further management. He also says that he will obtain appointment outpatient GI evaluation on his own. Health Concerns: As above. Plan of Treatment: As above. Assessment: As above. Discharge Date/Time: 07/09/21 07:45
== END 2021-07-09 07:45 | disposition left against medical advice (07) ==
LOC: HO.ED 12:25 → HO.EDOVER 13:21 → HO.S3 07-09 01:03
PROVIDERS: Physician Assistant; Admitting Provider Internal Medicine; Emergency Provider Emergency Medicine; PCP Internal Medicine; Visit Provider Internal Medicine
DX: R11.15 Cyclical vomiting syndrome unrelated to migraine (principal); E87.6 Hypokalemia; K29.70 Gastritis, unspecified, without bleeding; J45.909 Unspecified asthma, uncomplicated; E66.01 Morbid (severe) obesity due to excess calories; F12.90 Cannabis use, unspecified, uncomplicated; Z68.37 Body mass index [BMI] 37.0-37.9, adult; Z20.822 Contact with and (suspected) exposure to COVID-19; Z79.899 Other long term (current) drug therapy; Z53.29 Procedure and treatment not carried out because of patient's decision for other reasons
CPT/HCPCS: 36415; 74176; 80048; 80076; 80307; 81003; 82272; 83690; 83735; 85025; 87046; 87635; 96361; 96372; 96374; 96375; 96376; 99218; 99285; J1200; J2060; J2270; J2405; J2765

== ENCOUNTER 2021-07-10 01:00 | Emergency (ER) | payer MEDICAID, SELFPAY ==
[2021-07-10 01:36] VITALS: BP 153/103; PULSE 82; RESP 18; TEMP 36.6; O2SAT 99; BMI 39.0
[2021-07-10 01:46] LABS: MANUAL DIFF FLAG NO
[2021-07-10 01:50] LABS: Basophils Absolute Auto 0.1 X10*3/uL (0.0-0.2); Basophils Percent Auto 0.5 % (0-2); Eosinophils Absolute Auto 0.1 X10*3/uL (0.0-0.4); Eosinophils Percent Auto 0.8 % (0-4); Hematocrit 43.5 % (42.0-52.0); Hemoglobin 14.3 g/dl (14.0-18.0); Imm Gran Abs Auto 0.03 X10*3/uL (0.00-0.03); Imm Gran Pct Auto 0.3 % (0.0-0.4); Lymphocytes Absolute Auto 4.5 X10*3/uL (1.2-4.9); Lymphocytes Percent Auto 46.6 % (20-40); Mean Corpuscular HGB Conc 32.9 g/dl (31.0-36.0); Mean Corpuscular Hemoglobin 26.9 pg (27.0-33.0); Mean Corpuscular Volume 81.9 fL (80.0-98.0); Monocytes Absolute Auto 0.6 X10*3/uL (0.1-1.2); Monocytes Percent Auto 5.6 % (2-11); Neutrophils Absolute Auto 4.5 x10*3/uL (2.0-8.3); Neutrophils Percent Auto 46.2 % (45-73); Platelet Count 232 X10*3/uL (160-400); Red Blood Count 5.31 X10*6/uL (4.60-5.80); Red Cell Distribution Width 13.7 % (11.0-16.0); White Blood Count 9.8 X10*3/uL (4.8-10.8)
[2021-07-10 02:09] LABS: Alanine Aminotransferase 60 U/L (0-40); Albumin Level 4.2 g/dL (3.5-5.0); Alkaline Phosphatase 87 U/L (39-117); Anion Gap 15 (12-20); Aspartate Amino Transferase 40 U/L (5-37); Bilirubin Total 1.4 mg/dL (0.0-1.0); Blood Urea Nitrogen 7 mg/dL (9-16); Calcium 9.3 mg/dL (8.4-10.2); Carbon Dioxide 21 mmol/L (22-29); Chloride 107 mmol/L (96-108); Creatinine Clr Calc Pharmacy 146.3; Estimated Glomerular Filt Rate > 60; Glucose Random 105 mg/dL (60-115); Potassium 3.8 mmol/L (3.3-5.1); Sodium 139 mmol/L (135-145); Total Protein 7.1 g/dL (6.5-8.0)
[2021-07-10 03:21] VITALS: BP 153/86; PULSE 74; O2SAT 98
--- NOTE | 2021-07-10 03:26 | PC.NURSE ---
pt anxious, reports that he has not been taking his PRN anxiety medication quetiapine
--- NOTE | 2021-07-10 03:56 | ED_ITS ---
HPI - General Adult General Chief complaint: General Medical Stated complaint: gastritis? anxiety, legs cramping Time Seen by Provider: 07/10/21 03:55 Source: patient Mode of arrival: ambulatory Limitations: no limitations History of Present Illness HPI narrative: 30-year-old male was seen 2 days in the emergency department for persistent vomiting patient was admitted to the hospital for cyclic vomiting syndrome, patient had unremarkable abdominal CT and labs, patient signed against medical advice and left the hospital, patient returns feeling anxious and tremulous with muscle spasm. Stated that the GI symptoms have improved except for being anxious and tremulous. Related Data Home Medications Medication Instructions Recorded Confirmed albuterol sulfate 90 mcg/actuation 2 puff PO Q4-6H PRN 07/08/21 07/10/21 aerosol inhaler (ProAir HFA) quetiapine 25 mg tablet 1 tab PO DAILY PRN 07/08/21 07/10/21 Previous Rx's Medication Instructions Recorded cyclobenzaprine 10 mg tablet 10 mg PO TID PRN #14 tab 07/10/21 Allergies Allergy/AdvReac Type Severity Reaction Status Date / Time No Known Allergies Allergy Verified 07/07/21 16:57 [No Known Allergies*] Review of Systems Review of Systems: All other systems are reviewed and are negative Constitutional: Reports as per HPI and Reports no additional constitutional complaints Eyes: Reports as per HPI and Reports no additional eye complaints Reports system reviewed and no additional complaints, except as documented Cardiovascular: Reports as per HPI and Reports no additional cardiovascular complaints Respiratory: Reports as per HPI and Reports no additional respiratory complaints Gastrointestinal: Reports as per HPI and Reports no additional gastrointestinal complaints Genitourinary: Reports no additional female genitourinary complaints Musculoskeletal: Reports no additional musculoskeletal complaints Skin/Breast: Reports system reviewed and no additional complaints, except as docu Psychiatric: Reports no additional psychiatric complaints Endocrine: Reports no additional endocrine complaints Hematologic/Lymphatic: Reports no additional hematologic/lymphatic complaints Allergic/Immunologic: Reports no additional allergic/immunologic complaints Reports system reviewed and no additional complaints, except as documented and Reports Abnormal speech present [facility] Past Medical History Medical History Anxiety Asthma Hypokalemia Social History Social History Household Members: Children Housing: Apartment Do you presently have visiting nurse or other home services: No Alcohol intake: never Patient Tobacco Use Status: Never used Tobacco Substance Use Type: Marijuana Advance Directives: No Physical Exam ED Vital Signs: Vital Signs - 24 hr 07/10/21 01:36 07/10/21 03:21 07/10/21 05:44 Temperature 98 F Pulse Rate 82 74 77 Respiratory Rate 18 16 Blood Pressure 153/103 H 153/86 H 146/95 H Pulse Oximetry 99 98 99 BMI result Body Mass Index 39.0 Vital signs have been reviewed as appeared to be correct. Blood pressure normal. Heart rate normal. Respiration rate normal. Temperature normal. Oxygen saturation normal. Appearance: Alert. Oriented X3. No acute distress. Anxious. Head: Normal external exam. Normocephalic. Atraumatic. No [place] signs noted. No raccoon eyes noted Eyes: PERRLA. EOMI. Conjunctiva and sclera normal. Eyelids normal. ENT: TM's Normal. Pharynx normal. Uvula midline. Moist mucous membranes. No trismus noted. No drooling noted. No muffled voice noted. Neck: Normal inspection. Neck supple. FROM. No adenopathy. Thyroid Normal. No meningeal signs. No neck mass noted. CVS: Normal heart rate and rhythm. Heart sound normal. No murmurs noted. Pulses normal throughout. Respiratory: No respiratory distress. Painless inspiration. Breath sounds normal. No wheezes/rales/rhonchi noted. Chest nontender. No accessory muscle usage noted or decreased air movement noted. Abdomen: Soft and nontender. Bowel sounds normal in all 4 quadrants. No distention noted. No organomegaly noted. No visible injury noted. Back: No CVA tenderness. Full range of motion noted. Skin: Skin warm and dry. Normal skin color. Normal skin turgor. No rashes/lesions/lacerations noted. Extremities: No lower extremity edema. Extremities exhibit normal range of motion. Extremities nontender. Neuro: Oriented X 3. Cranial nerve exam: II-XII are grossly intact No motor deficit. No sensory deficit. Reflexes normal. Course Course Course Narrative: Assessment and plan. 30-year-old male history of cyclic vomiting/gastritis recent admission patient left the hospital AMA, return with anxiety and muscle cramps, stated that the vomiting has improved but still having nonbloody watery loose stool diarrhea, complaining of muscle cramps and anxiety was given 1 mg of Ativan in the ED which improved the patient's symptoms now patient is calm, will discharge the patient to follow up with outpatient GI. Medical Decision Making Lab Data Lab results reviewed: Yes I reviewed the patient's lab results. Result diagrams: 07/10/21 01:39 07/10/21 01:39 Labs: Lab Results 07/10/21 07/10/21 Range/Units 01:39 01:39 WBC 9.8 (4.8-10.8) X10*3/uL RBC 5.31 (4.60-5.80) X10*6/uL Hgb 14.3 (14.0-18.0) g/dl Hct 43.5 (42.0-52.0) % MCV 81.9 (80.0-98.0) fL MCH 26.9 L (27.0-33.0) pg MCHC 32.9 (31.0-36.0) g/dl RDW 13.7 (11.0-16.0) % Plt Count 232 (160-400) X10*3/uL MPV 11.0 (9.4-12.4) fL Immature Gran % (Auto) 0.3 (0.0-0.4) % Neut % (Auto) 46.2 (45-73) % Lymph % (Auto) 46.6 H (20-40) % [place] % (Auto) 5.6 (2-11) % Eos % (Auto) 0.8 (0-4) % Baso % (Auto) 0.5 (0-2) % Lymph # (Auto) 4.5 (1.2-4.9) X10*3/uL [place] # (Auto) 0.6 (0.1-1.2) X10*3/uL Eos # (Auto) 0.1 (0.0-0.4) X10*3/uL Baso # (Auto) 0.1 (0.0-0.2) X10*3/uL Abs Immat Gran (auto) 0.03 (0.00-0.03) X10*3/uL Absolute Neuts (auto) 4.5 (2.0-8.3) x10*3/uL Absolute Nucleated RBC 0.000 (0.0-0.012) X10*3/uL Nucleated RBC % (auto) 0.0 (0.0-0.2) /100WBC Sodium 139 (135-145) mmol/L Potassium 3.8 (3.3-5.1) mmol/L Chloride 107 (96-108) mmol/L Carbon Dioxide 21 L (22-29) mmol/L Anion Gap 15 (12-20) BUN 7 L (9-16) mg/dL Creatinine 1.02 (0.5-1.4) mg/dL Estim Creat Clear Calc 146.3 Estimated GFR > 60 Random Glucose 105 (60-115) mg/dL Calcium 9.3 D (8.4-10.2) mg/dL Total Bilirubin 1.4 H (0.0-1.0) mg/dL AST 40 H (5-37) U/L ALT 60 H (0-40) U/L Alkaline Phosphatase 87 (39-117) U/L Total Protein 7.1 (6.5-8.0) g/dL Albumin 4.2 (3.5-5.0) g/dL Discharge Plan Discharge Clinical Impression: Cramp in muscle, Anxiety Patient Disposition: Home, Self-Care Instructions: Muscle Cramp (ED), Anxiety (ED) Prescriptions: New cyclobenzaprine 10 mg tablet 10 mg PO TID PRN (Reason: muscle spasm) Qty: 14 0RF No Action quetiapine 25 mg tablet 1 tab PO DAILY PRN (Reason: Anxiety) 0RF albuterol sulfate [ProAir HFA] 90 mcg/actuation HFA aerosol inhaler 2 puff PO Q4-6H PRN (Reason: Shortness Of Breath) 0RF Referrals: [facility] [Primary Care Provider] -
[2021-07-10] MEDS: LORazepam 1 MG TABLET PO (04:16)
[2021-07-10] MEDS: Loperamide HCl 2 MG CAPSULE PO (04:56)
[2021-07-10 05:44] VITALS: BP 146/95; PULSE 77; RESP 16; O2SAT 99
== END 2021-07-10 06:04 | disposition home or self-care (01) ==
PROVIDERS: Emergency Provider Emergency Medicine
DX: R25.2 Cramp and spasm (principal); F41.9 Anxiety disorder, unspecified; J45.909 Unspecified asthma, uncomplicated; Z79.899 Other long term (current) drug therapy
CPT/HCPCS: 36415; 80053; 85025; 99283; 99284

== ENCOUNTER 2022-03-26 09:37 | Outpatient (REF) | payer MEDICAID, SELFPAY ==
[2022-03-26 11:34] LABS: Hematocrit 45.5 % (42.0-52.0); Hemoglobin 14.2 g/dl (14.0-18.0); Mean Corpuscular HGB Conc 31.2 g/dl (31.0-36.0); Mean Corpuscular Hemoglobin 26.2 pg (27.0-33.0); Mean Corpuscular Volume 83.9 fL (80.0-98.0); Mean Platelet Volume 11.6 fL (9.4-12.4); Platelet Count 262 X10*3/uL (160-400); Red Blood Count 5.42 X10*6/uL (4.60-5.80); Red Cell Distribution Width 14.2 % (11.0-16.0); White Blood Count 8.1 X10*3/uL (4.8-10.8)
[2022-03-26 12:10] LABS: Alanine Aminotransferase 34 U/L (0-40); Albumin Level 4.3 g/dL (3.5-5.0); Alkaline Phosphatase 88 U/L (39-117); Anion Gap 14 (12-20); Aspartate Amino Transferase 27 U/L (5-37); Bilirubin Total 0.7 mg/dL (0.0-1.0); Blood Urea Nitrogen 12 mg/dL (9-16); Calcium 9.5 mg/dL (8.4-10.2); Carbon Dioxide 24 mmol/L (22-29); Chloride 108 mmol/L (96-108); Estimated Glomerular Filt Rate > 60; Glucose Random 94 mg/dL (60-115); Lipase 52 U/L (8-78); Potassium 4.6 mmol/L (3.3-5.1); Sodium 141 mmol/L (135-145); Total Protein 7.1 g/dL (6.5-8.0)
[2022-03-26 12:16] LABS: TSH reflex Free T4 1.52 uIU/mL (0.32-4.0)
[2022-03-30 08:04] LABS: Transglutaminase Ab IgG <1.0 U/mL; Transglutaminase IgA <1.0 U/mL
== END 2022-03-26 09:38 | disposition home or self-care (01) ==
LOC: HO.LAB 09:37
PROVIDERS: PCP Internal Medicine; Referring Provider Internal Medicine; Visit Provider Nurse Practitioner Family
DX: R10.9 Unspecified abdominal pain (principal); K21.9 Gastro-esophageal reflux disease without esophagitis; K59.04 Chronic idiopathic constipation; K58.1 Irritable bowel syndrome with constipation; K64.9 Unspecified hemorrhoids
CPT/HCPCS: 36415; 80053; 83690; 84443; 85027; 86364; 99202

== ENCOUNTER → 2022-04-23 10:37 | Outpatient (BNVA) | payer MEDICAID, SELFPAY | PROVIDERS: PCP Internal Medicine; Visit Provider Nurse Practitioner Family | DX: K21.9 Gastro-esophageal reflux disease without esophagitis (principal); K59.04 Chronic idiopathic constipation; K58.2 Mixed irritable bowel syndrome; K64.9 Unspecified hemorrhoids; E73.9 Lactose intolerance, unspecified | CPT/HCPCS: 99212 ==

== ENCOUNTER 2022-05-05 08:00 | Day surgery (SDC) | payer MEDICAID, SELFPAY ==
[2022-04-29 11:48] VITALS: BMI 37.0
--- NOTE | 2022-05-04 12:00 | HO.ANESPROP2 ---
Documented by User: Kylee Burt NP 05/04/22 12:01 HPI - Anesthesia Eval Consult details Narrative: 31yo M for Upper Endoscopy and Colonoscopy PMF Active Problems Active Problems: All Active Problems (Updated 07/11/21 @ 00:02 by Carlos Baum) Cyclical vomiting (Acute) Past Medical History Medical History Anxiety Asthma Hypokalemia Family History Family History Family/Other Colon cancer Paternal Aunt Colon cancer Surgical History Surgical History (Updated 04/29/22 @ 11:43 by Monica Farrar RN) History of esophagogastroduodenoscopy (EGD) Hx of adenoidectomy Social History Social History Household Members: Children Housing: Apartment Do you presently have visiting nurse or other home services: No Alcohol intake: current Patient Tobacco Use Status: Never used Tobacco Substance Use Type: Marijuana Meds Allergies Allergy/AdvReac Type Severity Reaction Status Date / Time No Known Allergies Allergy Verified 04/23/22 10:41 [No Known Allergies*] Home Medications Medication Instructions Recorded Confirmed Last Taken Type albuterol sulfate 90 mcg/actuation 2 puff PO Q4-6H PRN Shortness Of 07/08/21 07/10/21 Unknown History aerosol inhaler (ProAir HFA) Breath quetiapine 25 mg tablet 1 tab PO DAILY PRN Anxiety 07/08/21 07/10/21 Unknown History Exam Exam Date and Time: May 04, 2022 1200 Height,Weight and Vital Signs: Height 5 ft 11 in Weight 120.656 kg Pertinent Lab Results Pertinent Lab Results: Laboratory Tests 03/26/22 03/26/22 10:38 10:38 WBC 8.1 Hgb 14.2 Hct 45.5 Plt Count 262 Sodium 141 Potassium 4.6 D Chloride 108 Carbon Dioxide 24 BUN 12 Creatinine 1.03 Assessment and Plan Assessment Anesthesia Assessment: Chart Reviewed Documented by User: Vahid Tapia MD 05/05/22 16:23 [facility] Past Medical History Medical History Anxiety Asthma Hypokalemia Functional capacity: independent ambulation Family History Family History Family/Other Colon cancer Paternal Aunt Colon cancer Family history of problems with anesthesia: No Surgical History Surgical History (Updated 04/29/22 @ 11:43 by Monica Farrar RN) History of esophagogastroduodenoscopy (EGD) Hx of adenoidectomy History of Problems with Anesthesia: No Social History Social History Household Members: Children Housing: Apartment Do you presently have visiting nurse or other home services: No Alcohol intake: current Patient Tobacco Use Status: Never used Tobacco Substance Use Type: Marijuana Meds Allergies Allergy/AdvReac Type Severity Reaction Status Date / Time No Known Allergies Allergy Verified 04/23/22 10:41 [No Known Allergies*] Home Medications Medication Instructions Recorded Confirmed Last Taken Type albuterol sulfate 90 mcg/actuation 2 puff PO Q4-6H PRN Shortness Of 07/08/21 07/10/21 Unknown History aerosol inhaler (ProAir HFA) Breath quetiapine 25 mg tablet 1 tab PO DAILY PRN Anxiety 07/08/21 07/10/21 Unknown History Exam Airway Mallampati Class: IV TM Dist: >3cm Neck ROM: Full Loose/Missing/Broken Teeth: Yes Heart: S1,S2 Lungs: b/l breath sounds Assessment and Plan Assessment Anesthesia Assessment: Anesthesia Plan Discussed Final Anesthetic Review Family History of Problems with Anesthesia: No History of Problems with Anesthesia: No NPO: Yes ASA Class: II Final Preanesthetic Review: Meds/Allgs Chart Reviewed, Consent Obtained/Reviewed and Anes Risks/Benef Reviewed Patient Risk: Intermediate Procedure Risk: Intermediate Anesthetic Plan Anesthetic Plan: MAC: Disposition: Standard PACU
[2022-05-05 08:22] VITALS: BMI 37.3
[2022-05-05 08:30] VITALS: BP 115/62; PULSE 72; RESP 16; TEMP 36.2; O2SAT 98
[2022-05-05] MEDS: Lactated Ringers 1,000 ML 100 ML IVCONT (08:41)
--- NOTE | 2022-05-05 08:49 | HO.ANESPROP2 ---
[facility] Active Problems Active Problems: All Active Problems (Updated 07/11/21 @ 00:02 by Carlos Baum) Cyclical vomiting (Acute) Past Medical History Medical History Anxiety Asthma Hypokalemia Family History Family History Family/Other Colon cancer Paternal Aunt Colon cancer Family history of problems with anesthesia: No Surgical History Surgical History (Updated 04/29/22 @ 11:43 by Monica Farrar RN) History of esophagogastroduodenoscopy (EGD) Hx of adenoidectomy History of Problems with Anesthesia: No Social History Social History Household Members: Children Housing: Apartment Do you presently have visiting nurse or other home services: No Alcohol intake: current Patient Tobacco Use Status: Never used Tobacco Use of substances other than those prescribed or required for medical reasons: Yes Substance Use Type: Marijuana Are you DNR?: No Advance Directives: No Advance Directives Information Provided: Yes Recently lost weight without trying: No Nutrition Risks: No Nutritional Risk Meds Allergies Allergy/AdvReac Type Severity Reaction Status Date / Time No Known Allergies Allergy Verified 04/23/22 10:41 [No Known Allergies*] Active Medications: Current Medications Albuterol Sulfate (Albuterol Sulfate (0.083%) 2.5 Mg/3 Ml Vial.Neb) 2.5 mg INHALE ONCE PRN PRN Reason: Shortness of Breath/Wheezing Lactated Ringer's (Lr) 1,000 mls @ 100 mls/hr IVCONT .Q10H LULY Last Admin: 05/05/22 08:41 Dose: 100 mls/hr Home Medications Medication Instructions Recorded Confirmed Last Taken Type albuterol sulfate 90 mcg/actuation 2 puff PO Q4-6H PRN Shortness Of 07/08/21 07/10/21 Unknown History aerosol inhaler (ProAir HFA) Breath quetiapine 25 mg tablet 1 tab PO DAILY PRN Anxiety 07/08/21 07/10/21 Unknown History Exam Exam Date and Time: May 05, 2022 0849 Height,Weight and Vital Signs: Height 5 ft 11 in Weight 121.563 kg Last Vital Signs Temp 97.1 F 05/05/22 08:30 Pulse 72 05/05/22 08:30 Resp 16 05/05/22 08:30 BP 115/62 05/05/22 08:30 Pulse Ox 98 05/05/22 08:30 O2 Del Method 05/05/22 08:30 Assessment and Plan Final Anesthetic Review Family History of Problems with Anesthesia: No History of Problems with Anesthesia: No
--- NOTE | 2022-05-05 09:07 | MHC.SHP ---
Pre-Procedural Eval Section A Date of Service: 05/05/22 Section B Chief Complaint: Chronic idiopathic constipation,GERD Details of Present Illness: fh of CRC in second degree relatives Relevant Family History (Specify if Yes): Yes Relevant Social History: Other (specify) (THC) Present Medications: see Short Stay Collaborative assessment Medical History: Significant History (Anxiety Asthma Hypokalemia) History of Previous Operations: Relevant previous surgery/procedure and date(s) (egd) Allergies: Allergies Allergy/AdvReac Type Severity Reaction Status Date / Time No Known Allergies Allergy Verified 04/23/22 10:41 [No Known Allergies*] Review of Systems Sugical H&P ROS: Negative: Constitution, Cardiovascular, Respiratory, Neurological, Psychiatric, Hem-Onc, Allergic/Immunologic, Gastrointestinal, Genitourinary, Musculoskeletal, Integumentary, Endocrine and Eyes/Ears/Nose/Throat Exam Surgical H&P Exam: Normal: HEENT, Normal: Heart, Normal: Lungs, Normal: Extremities, Normal: Abdomen, Normal: Skin and Normal: Neurological Plan Diagnosis/Plan: Unchanged I have reviewed the history and physical and performed a pertinent physical examination on my patient. No changes have occurred unless specified. Time Spent With Patient Time: Total time managing care of this patient today ____ minutes.
--- NOTE | 2022-05-05 09:28 | P.OP_ITS ---
Operative Note Operative Note Date of Service: 05/05/22 Narrative: Operative Information Procedure Description: EGD, Colonoscopy Indication: abdominal pain , nausea, altered bowel habits Anesthesia: MAC FLEXIBLE TRANSORAL UPPER GASTROINTESTINAL ENDOSCOPY AND COLONOSCOPY PROCEDURE NOTE UPPER ENDOSCOPY Consent: Indications for the procedure and potential complications of bleeding, perforation, reaction to medications and missed diagnosis were discussed with the patient and informed consent was obtained. Instrument: Olympus GIF H 190 J mid size upper endoscope Monitoring: Vital signs and clinical assessment, continuous EKG monitoring, Pulse oximetry, Carbon Dioxide monitoring and blood pressure monitoring were done throughout the procedure. Procedure: The patient was placed in the left lateral decubitis position and pre-procedure medications were administered and a bite block was placed. The endoscope was inserted into the mouth and advanced under direct vision to the third part of duodenum. A careful inspection was made as the upper endoscope was withdrawn including a retroflexed examination of the proximal stomach; Findings and interventions are described below. Findings: Larynx:normal Esophagus: GE junction at 40 cm, diaphragm hiatus at 40 cm, normal mucosa, bx taken from distal esophagus-random Stomach: Patchy erythema ronni around the pyloric outlet. Biopsies were obtained. Grade 2 flap valve on retroflexed examination of the cardia. Duodenum: Normal bulb and descending duodenum, bx taken Intervention: Biopsies as noted above COLONOSCOPY Instrument: Olympus variable stiffness pediatric scope 190L Colonoscopy Monitoring: Vital signs and clinical assessment, continuous EKG monitoring, Pulse oximetry, Carbon Dioxide monitoring and blood pressure monitoring were done throughout the procedure. Colon withdrawal time was 11 minutes. Procedure: The patient was placed in the left lateral decubitis position and pre-procedure medications were administered. After a digital rectal examination of the ano-rectum, the video colonoscope was inserted into the rectum and advanced through the colon to the cecum/TI. The colonoscope was slowly withdrawn in a retrograde panoramic fashion and the colon mucosa was carefully examined including a retroflexed view of the rectum. Findings and interventions are described below. Procedure Difficulty: Findings: Terminal Ileum-normal, random bx taken Random colon bx taken Cecum:normal Ascending Colon: normal Transverse Colon -normal Descending Colon:normal Sigmoid Colon: normal Rectum: Retroflexion with moderate sized internal hemorrhoids, grade I, 8-10 mm inflammed polypoid lesion noted, and removed with cold snare with 1 clip applied for hemostasis, random rectal bx taken in separate jar, also tissue sample taken with cold snare to check for ganglion cells Anorectum - normal Colon preparation: [place] Bowel Preparation Scale Right colon; 2 Transverse colon: 3 Left colon; 3 (0 = Unprepared colon segment with mucosa not seen due to solid stool that cannot be cleared. 1 = Portion of mucosa of the colon segment seen, but other areas of the colon segment not well seen due to staining, residual stool and/or opaque liquid. 2 = Minor amount of residual staining, small fragments of stool and/or opaque liquid, but mucosa of colon segment seen well. 3 = Entire mucosa of colon segment seen well with no residual staining, small fragments of stool or opaque liquid) Impression and Post Procedure Diagnosis: Endoscopy Findings: gastritis Colonoscopy Findings: internal hemorrhoids inflammend polyp, possibly due to rectal prolapse Plan: Await Pathology results Repeat Colonoscopy aged 45 if polyp is benign, otherwise repeat colonoscopy in 3-5 ys or earlier if clinically indicated High fiber diet leaflet avoid straining at stool, epsom salts and sitz bath, anusol supps or cream Above findings were reviewed with the patient and relevant handouts were provided if indicated.
[2022-05-05 10:00] VITALS: BP 110/62; PULSE 78; RESP 20; TEMP 36.2; O2SAT 93
[2022-05-05 10:15] VITALS: BP 105/62; PULSE 72; RESP 18; TEMP 36.2; O2SAT 97
== END 2022-05-05 11:09 | disposition home or self-care (01) ==
PROVIDERS: PCP Internal Medicine; Visit Provider Internal Medicine Gastroenterology
PROC: (CPT 45385; principal; 2022-05-05 09:10)
DX: K59.04 Chronic idiopathic constipation (principal); K62.1 Rectal polyp; K64.0 First degree hemorrhoids; K21.9 Gastro-esophageal reflux disease without esophagitis; K29.40 Chronic atrophic gastritis without bleeding; B96.81 Helicobacter pylori [H. pylori] as the cause of diseases classified elsewhere; J45.909 Unspecified asthma, uncomplicated; E87.6 Hypokalemia; F41.1 Generalized anxiety disorder; Z79.899 Other long term (current) drug therapy; F12.90 Cannabis use, unspecified, uncomplicated; K44.9 Diaphragmatic hernia without obstruction or gangrene
CPT/HCPCS: 45385; 45380; 43239; 88305; 88342; J2250; J3010

== ENCOUNTER 2022-05-29 10:44 | Emergency (ER) | payer MEDICAID, SELFPAY ==
[2022-05-29 11:06] VITALS: BP 123/72; PULSE 78; RESP 18; TEMP 37.1; O2SAT 96; BMI 36.2
--- NOTE | 2022-05-29 11:18 | ED_ITS ---
HPI - Fever General Chief Complaint: Fever Stated Complaint: fever Time Seen by Provider: 05/29/22 11:18 Source: patient Mode of arrival: ambulatory Limitations: no limitations History of Present Illness HPI Narrative: 31 yo male presents to the ER for evaluation of 1 week of not feeling well. He has had subjective fevers mostly at night. He has not taken his temperature to know if it is a true fever. He reports he is a homosexual male and recently had unprotected sex. No weight loss. He denies any or urinary symptoms. No genital lesions. No N/V/D or abdominal pains. No URI symptoms or known sick contacts. He is interested in HIV testing. MD elicited complaint: fever, malaise and weakness Onset (ago): week(s) (1) Context: other (recent unprotected sex) Exacerbating factors: at night Relieving factors: nothing Associated symptoms: denies other symptoms Treatments prior to arrival fever: none Related Data Home Medications Medication Instructions Recorded Confirmed albuterol sulfate 90 mcg/actuation 2 puff PO Q4-6H PRN Shortness Of 07/08/21 07/10/21 aerosol inhaler (ProAir HFA) Breath quetiapine 25 mg tablet 1 tab PO DAILY PRN Anxiety 07/08/21 07/10/21 Previous Rx's Medication Instructions Recorded cyclobenzaprine 10 mg tablet 10 mg PO TID PRN muscle spasm #14 07/10/21 tabs hydrocortisone 2.5 % topical cream 1 appl [place] BID-QID PRN hemorrhoids 03/26/22 with perineal applicator #30 grams (Proctosol HC) polyethylene glycol 3350 17 17 g PO DAILY #510 grams 03/26/22 gram/dose oral powder (Miralax) bisacodyl 5 mg tablet,delayed 10 mg PO ONCE 1 day #2 tabs 04/23/22 release (Dulcolax (bisacodyl)) linaclotide 145 mcg capsule 145 mcg PO DAILY #90 caps 04/23/22 (Linzess) omeprazole 40 mg capsule,delayed 40 mg PO DAILY #90 caps 04/23/22 release polyethylene glycol 3350 17 238 g PO ONCE #238 grams 04/23/22 gram/dose oral powder (Miralax) bismuth subsalicylate 262 mg 2 tab PO QID 14 days #112 tabs 05/12/22 chewable tablet metronidazole 500 mg tablet 1,000 mg PO BID #56 tabs 05/12/22 omeprazole 20 mg capsule,delayed 20 mg PO BID 14 days #28 caps 05/12/22 release tetracycline 500 mg capsule 1,000 mg PO Q12H #56 caps 05/12/22 Allergies Allergy/AdvReac Type Severity Reaction Status Date / Time No Known Allergies Allergy Verified 05/29/22 11:06 [No Known Allergies*] Review of Systems Review of Systems: Yes all other systems are reviewed and are negative COUNTS INCLUDE 234 BEDS AT THE [facility] Past Medical History Medical History (Updated 05/29/22 @ 12:08 by TONYA Giang) Anxiety Asthma Hypokalemia Surgical History (Updated 04/29/22 @ 11:43 by Monica Farrar RN) History of esophagogastroduodenoscopy (EGD) Hx of adenoidectomy Family History Family History Family/Other Colon cancer Paternal Aunt Colon cancer Social History Social History Household Members: Children Housing: Apartment Do you presently have visiting nurse or other home services: No Alcohol intake: current Patient Tobacco Use Status: Never used Tobacco Substance Use Type: Marijuana Advance Directives: No Advance Directives Information Provided: Yes Physical Exam Vital Signs: Vital Signs: Last Vital Signs Temp 98.7 F 05/29/22 11:06 Pulse 78 05/29/22 11:06 Resp 18 05/29/22 11:06 BP 123/72 05/29/22 11:06 Pulse Ox 96 05/29/22 11:06 O2 Del Method Room Air 05/29/22 11:06 BMI result Body Mass Index 36.2 Appearance: Alert. Oriented X3. No acute distress. Head: normocephalic, atraumatic. Eyes: Pupils equal, round and reactive to light. ENT: Pharynx normal. No tonsillar swelling or exudate. Neck: Normal inspection. Neck supple. CVS: Normal heart rate and rhythm. Pulses normal. Respiratory: No respiratory distress. Breath sounds normal. Abdomen: Soft and nontender. +BS x4 Skin: Skin warm and dry. Normal skin color. Normal skin turgor. No rashes. Extremities: No lower extremity edema. No joint swelling. Neuro/psych: Oriented X 3. No motor deficit. No sensory deficit. CN II-XII intact. Normal speech and cognition. Medical Decision Making Medical Decision Making MDM Narrative: 30 yo male presenting to the ER for evaluation of subjective fevers after he had unprotected anal sex. No known HIV exposure. No STI symptoms. He was negative for COVID and Flu today. We discussed importantance of regular HIV testing and going to a local [facility] for full workup, not routinely done in the ER. He deferred STI/CT/NG testing here and will get it all done at the [facility]. He is stable for d/c home. Differential Diagnosis Differential Diagnoses: The differential diagnosis associated with the presentation includes anxiety, viral illness, HIV, COVId, Flu, STI Lab Data [facility] Lab Attestation statement: I reviewed the patient's lab results. Labs: Lab Results 05/29/22 05/29/22 Range/Units 11:25 11:25 COVID-19 (BETTIE) Negative (Negative) COVID-19 Clin Com See Note Influenza Type A (NATHALIE) Negative (Negative) Influenza Type B (NATHALIE) Negative (Negative) Influenza A & B Note See Note External Record Review External record reviewed: Prior outpatient labs and Prior outpatient radiology Critical Care Time Critical Care Time Critical Care Time: No Discharge Plan Discharge Clinical Impression: Subjective fever Patient Disposition: Home, Self-Care Instructions: Fever in Adults (ED) Additional Instructions: You tested negative for COVID and Flu today. Recommend monitoring your temperature with a thermometer to see if you have true fevers. Recommend following up with local [facility] for STI/HIV testing. If you develop new or worsening symptoms call 911 or come back to the ER for further evaluation. Prescriptions: No Action bismuth subsalicylate 262 mg tablet,chewable 2 tab PO QID 14 Days Qty: 112 0RF metronidazole 500 mg tablet 1,000 mg PO BID Qty: 56 0RF tetracycline 500 mg capsule 1,000 mg PO Q12H Qty: 56 0RF omeprazole 20 mg capsule,delayed release(DR/EC) 20 mg PO BID 14 Days Qty: 28 0RF quetiapine 25 mg tablet 1 tab PO DAILY PRN (Reason: Anxiety) albuterol sulfate [ProAir HFA] 90 mcg/actuation HFA aerosol inhaler 2 puff PO Q4-6H PRN (Reason: Shortness Of Breath) cyclobenzaprine 10 mg tablet 10 mg PO TID PRN (Reason: muscle spasm) Qty: 14 0RF polyethylene glycol 3350 [Miralax] 17 gram/dose powder 17 g PO DAILY Qty: 510 2RF hydrocortisone [Proctosol HC] 2.5 % cream with perineal applicator 1 appl [place] BID-QID PRN (Reason: hemorrhoids) Qty: 30 2RF omeprazole 40 mg capsule,delayed release(DR/EC) 40 mg PO DAILY Qty: 90 3RF Linzess 145 mcg capsule 145 mcg PO DAILY Qty: 90 3RF bisacodyl [Dulcolax (bisacodyl)] 5 mg tablet,delayed release (DR/EC) 10 mg PO ONCE 1 Days Qty: 2 0RF Rx Instructions: take 2 tabs at noon the day before your colonoscopy polyethylene glycol 3350 [Miralax] 17 gram/dose powder 238 g PO ONCE Qty: 238 0RF Rx Instructions: As directed by gastroenterology department at [facility]
[2022-05-29 11:50] LABS: IDNOW Serial# BCCEAD1C; Influenza A Negative (Negative); Influenza B2 Negative (Negative)
[2022-05-29 11:51] LABS: COVID-19 Test Negative (Negative); IDNOW Serial# 08D9AD1C
== END 2022-05-29 12:14 | disposition home or self-care (01) ==
PROVIDERS: Emergency Provider Emergency Medicine
DX: R50.9 Fever, unspecified (principal); Z20.822 Contact with and (suspected) exposure to COVID-19
CPT/HCPCS: 87502; 87635; 99282; 99283

== ENCOUNTER 2022-10-19 01:15 | Emergency (ER) | payer MEDICAID, SELFPAY ==
--- NOTE | ~2022-10-19 | XR_ITS ---
EXAMINATION: XR SACRUM AND COCCYX CLINICAL INFORMATION: Pain. COMPARISON: None available. TECHNIQUE: 2 views of the sacrum and 2 views of the coccyx were obtained. FINDINGS: There are no fractures. No bone, joint or soft tissue abnormality is demonstrated. XR/XR sacrum coccyx min 2V IMPRESSION: No acute osseous abnormality.
--- NOTE | ~2022-10-19 | XR_ITS ---
EXAMINATION: XR ANKLE, RIGHT CLINICAL INFORMATION: Pain. COMPARISON: None available. TECHNIQUE: AP, lateral, and mortise views of the right ankle. FINDINGS: No fracture. Alignment is anatomic. No erosions. Joint spaces are maintained. Soft tissues are normal. XR/XR ankle RT 2V IMPRESSION: No acute osseous abnormality.
--- NOTE | ~2022-10-19 | XR_ITS ---
EXAMINATION: XR HIP, RIGHT CLINICAL INFORMATION: Fall and pain. COMPARISON: None available. TECHNIQUE: Two views of the right hip. FINDINGS: No fracture. Alignment is anatomic. Hip joint space is maintained. Soft tissues are unremarkable. XR/XR hip RT w PEL1V IMPRESSION: No significant abnormality identified.
[2022-10-19 01:19] VITALS: PULSE 101; RESP 20; TEMP 36.1; O2SAT 100; BMI 39.0
--- NOTE | 2022-10-19 01:51 | ED_ITS ---
HPI - Fall General Chief Complaint: Fall Stated Complaint: Slip and fall, left knee and foot pain Time Seen by Provider: 10/19/22 01:45 Source: patient Mode of arrival: ambulatory Limitations: no limitations History of Present Illness HPI Narrative: Patient comes to the emergency room complaining of a fall. Patient states that he slipped at home in a puddle of water and landed on his buttocks and the right side of his body. Patient did not hit his head, did not lose consciousness. Patient is not on blood thinners. Patient complaining of coccyx pain, right hip pain and a possible sprain ankle on the right. Related Data Home Medications Medication Instructions Recorded Confirmed albuterol sulfate 90 mcg/actuation 2 puff PO Q4-6H PRN Shortness Of 07/08/21 07/10/21 aerosol inhaler (ProAir HFA) Breath quetiapine 25 mg tablet 1 tab PO DAILY PRN Anxiety 07/08/21 07/10/21 Previous Rx's Medication Instructions Recorded cyclobenzaprine 10 mg tablet 10 mg PO TID PRN muscle spasm #14 07/10/21 tabs hydrocortisone 2.5 % topical cream [address] BID-QID PRN hemorrhoids 03/26/22 with perineal applicator #30 grams (Proctosol HC) polyethylene glycol 3350 17 17 g PO DAILY #510 grams 03/26/22 gram/dose oral powder (Miralax) bisacodyl 5 mg tablet,delayed 10 mg PO ONCE 1 day #2 tabs 04/23/22 release (Dulcolax (bisacodyl)) linaclotide 145 mcg capsule 145 mcg PO DAILY #90 caps 04/23/22 (Linzess) omeprazole 40 mg capsule,delayed 40 mg PO DAILY #90 caps 04/23/22 release polyethylene glycol 3350 17 238 g PO ONCE #238 grams 04/23/22 gram/dose oral powder (Miralax) bismuth subsalicylate 262 mg 2 tab PO QID 14 days #112 tabs 05/12/22 chewable tablet metronidazole 500 mg tablet 1,000 mg PO BID #56 tabs 05/12/22 omeprazole 20 mg capsule,delayed 20 mg PO BID 14 days #28 caps 05/12/22 release tetracycline 500 mg capsule 1,000 mg PO Q12H #56 caps 05/12/22 cyclobenzaprine 5 mg tablet 5 mg PO TID PRN muscle spasm #10 10/19/22 tabs ibuprofen 600 mg tablet 600 mg PO TID PRN pain #14 tabs 10/19/22 Allergies Allergy/AdvReac Type Severity Reaction Status Date / Time No Known Allergies Allergy Verified 05/29/22 11:06 [No Known Allergies*] Review of Systems Review of Systems: Constitutional : No Weight loss, No Fever, No Chills, No Night Sweats, No Fatigue, No Malaise ENT/Mouth : No Hearing loss, No Ear Pain, No Nasal Congestion, No Sinus Pain, No Hoarseness, No sore throat, No Rhinorrhea, No Swallowing Difficulty Eyes: No Eye Pain, No Swelling, No Redness, No Foreign Body, No Discharge, No Vision Changes Cardiovascular : No Chest Pain, No SOB, No Dyspnea on Exertion, No Orthopnea, No Edema, No Palpitations Respiratory : No Cough, No Sputum, No Wheezing, No Smoke Exposure, No Dyspnea Gastrointestinal : No Nausea, No Vomiting, No Diarrhea, No Constipation, No abdominal Pain, No Hematochezia, No Melena Genitourinary : no irregular bleeding, No Dysuria, No Urinary Frequency, No Hematuria, No Urinary Incontinence, No Urgency, No Flank Pain, No Urinary Flow Changes, No Hesitancy Musculoskeletal : Complaining of coccyx pain, right hip and right ankle, No Myalgias, No Joint Swelling Skin : No Skin Lesions, No rash Neuro : No Weakness, No Numbness, No Paresthesias, No Loss of Consciousness, No Dizziness, No Headache Psych : No Anxiety/Panic, No Depression, No SI/HI/AH/VH, No Social Issues, Heme/Lymph: No Bruising, No Bleeding,No Lymphadenopathy Endocrine : No Polyuria, No Polydipsia, No Temperature Intolerance [facility] Past Medical History Medical History Anxiety Asthma Hypokalemia Surgical History (Updated 04/29/22 @ 11:43 by Monica Farrar RN) History of esophagogastroduodenoscopy (EGD) Hx of adenoidectomy Family History Family History Family/Other Colon cancer Paternal Aunt Colon cancer Social History Social History Household Members: Children Housing: Apartment Do you presently have visiting nurse or other home services: No Alcohol intake: never Patient Tobacco Use Status: Never used Tobacco Smoked in Last 30 Days: No Use of substances other than those prescribed or required for medical reasons: No Substance Use Type: Marijuana Advance Directives: No Advance Directives Information Provided: Yes Physical Exam Vital Signs: Vital Signs: Last Vital Signs Temp 97.0 F 10/19/22 01:19 Pulse 101 H 10/19/22 01:19 Resp 20 10/19/22 01:19 Pulse Ox 100 10/19/22 01:19 O2 Del Method Room Air 10/19/22 01:19 BMI result Body Mass Index 39.0 Const: Other: Appearance: Alert. Oriented X3. No acute distress. Eyes: Pupils equal, round and reactive to light. ENT: Pharynx normal. Neck: Normal inspection. Neck supple. No lymph nodes noted. No crepitus CVS: Normal heart rate and rhythm. Pulses normal. Normal S1 and S2 Respiratory: No respiratory distress. Breath sounds normal. No Wheezing. No rales Abdomen: Soft and nontender. No rigidity. No distention. Musculoskeletal: Pain to palpation over the coccyx area, right hip, no ecchymosis, no deformity. Knee within normal limits, no effusion. Right ankle seems to be slightly swollen by the lateral malleolus, no deformity. Skin: Skin warm and dry. Normal skin color. Normal skin turgor. Extremities: No lower extremity edema. No Lacerations. No Rash Neuro: Oriented X 3. No motor deficit. No sensory deficit. Moving all extremities. No slurred speech. CN 2 through 12 grossly intact Psych: calm, cooperative, normal affect Course Course Course Narrative: -x-rays of the ankle hip and sacrum pending -patient given IM Toradol Medications Administered Discontinued Medications Generic Name Dose Route Start Last Admin Trade Name Freq PRN Reason Stop Dose Admin Ketorolac Tromethamine 60 mg 10/19/22 01:49 10/19/22 02:16 Ketorolac Tromethamine 60 Mg/2 Ml Vial IM 10/19/22 01:50 60 mg ONCE ONE Administration Medical Decision Making Medical Decision Making MDM Narrative: -my interpretation of x-ray of the ankle: Normal alignment, no fracture -x-rays of the hip and coccyx, no fracture. -patient's pain is musculoskeletal -patient receive a dose of IM Toradol and acetaminophen Differential Diagnosis Differential Diagnoses: The differential diagnosis associated with the presentation includes (Ankle/hips/ coccyx fracture, dislocation, contusion) Radiology Impression Discussion of test interpretation with radiology: I have reviewed the radiologist's reading. Radiologist Impression: No fracture. Alignment is anatomic. No erosions. Joint spaces are maintained. Soft tissues are normal.? XR/XR ankle RT 2V IMPRESSION: No acute osseous abnormality. There are no fractures. No bone, joint or soft tissue abnormality is demonstrated. XR/XR sacrum coccyx min 2V IMPRESSION: No acute osseous abnormality. Hip and pelvis: No fracture. Alignment is anatomic. Hip joint space is maintained. Soft tissues are unremarkable.? Discharge Plan Discharge Clinical Impression: Contusion of multiple sites, Ankle sprain Patient Disposition: Home, Self-Care Instructions: Ankle Sprain (ED), Contusion in Adults (ED) Additional Instructions: Please follow-up with your primary care physician tomorrow. If you have any worsening or new symptoms, please return to the emergency room or call 911 Prescriptions: New ibuprofen 600 mg tablet 600 mg PO TID PRN (Reason: pain) Qty: 14 0RF cyclobenzaprine 5 mg tablet 5 mg PO TID PRN (Reason: muscle spasm) Qty: 10 0RF No Action bismuth subsalicylate 262 mg tablet,chewable 2 tab PO QID 14 Days Qty: 112 0RF metronidazole 500 mg tablet 1,000 mg PO BID Qty: 56 0RF tetracycline 500 mg capsule 1,000 mg PO Q12H Qty: 56 0RF omeprazole 20 mg capsule,delayed release(DR/EC) 20 mg PO BID 14 Days Qty: 28 0RF quetiapine 25 mg tablet 1 tab PO DAILY PRN (Reason: Anxiety) albuterol sulfate [ProAir HFA] 90 mcg/actuation HFA aerosol inhaler 2 puff PO Q4-6H PRN (Reason: Shortness Of Breath) cyclobenzaprine 10 mg tablet 10 mg PO TID PRN (Reason: muscle spasm) Qty: 14 0RF polyethylene glycol 3350 [Miralax] 17 gram/dose powder 17 g PO DAILY Qty: 510 2RF hydrocortisone [Proctosol HC] 2.5 % cream with perineal applicator [address] BID-QID PRN (Reason: hemorrhoids) Qty: 30 2RF omeprazole 40 mg capsule,delayed release(DR/EC) 40 mg PO DAILY Qty: 90 3RF Linzess 145 mcg capsule 145 mcg PO DAILY Qty: 90 3RF bisacodyl [Dulcolax (bisacodyl)] 5 mg tablet,delayed release (DR/EC) 10 mg PO ONCE 1 Days Qty: 2 0RF Rx Instructions: take 2 tabs at noon the day before your colonoscopy polyethylene glycol 3350 [Miralax] 17 gram/dose powder 238 g PO ONCE Qty: 238 0RF Rx Instructions: As directed by gastroenterology department at [facility]
[2022-10-19] MEDS: Ketorolac Tromethamine 60 MG/2 ML VIAL IM (02:16)
[2022-10-19] MEDS: Acetaminophen 325 MG TABLET 650 MG PO (03:04)
== END 2022-10-19 03:20 | disposition home or self-care (01) ==
PROVIDERS: Emergency Provider Emergency Medicine
DX: S93.401A Sprain of unspecified ligament of right ankle, initial encounter (principal); S90.01XA Contusion of right ankle, initial encounter; M25.551 Pain in right hip; M25.571 Pain in right ankle and joints of right foot; W01.0XXA Fall on same level from slipping, tripping and stumbling without subsequent striking against object, initial encounter; Y93.9 Activity, unspecified; Y92.9 Unspecified place or not applicable; Y99.9 Unspecified external cause status; Z79.899 Other long term (current) drug therapy
CPT/HCPCS: 72220; 73502; 73600; 96372; 99284; J1885

== ENCOUNTER 2022-11-10 10:26 | Outpatient (REF) | payer MEDICAID, SELFPAY ==
[2022-11-10 12:06] LABS: Estimated Glomerular Filt Rate > 60
[2022-11-11 08:54] LABS: ~HepC Num1 0.08 S/CO (0.00-0.79); ~Hepatitis C Antibody Nonreactive (Nonreactive)
[2022-11-12 08:04] LABS: Syphilis Screen Nonreactive (Nonreactive)
[2022-11-13 10:29] LABS: HIV RNA PCR Qn Copies NOT DETECTED copies/mL (NOT DETECTED); HIV RNA PCR Qn Log Copies NOT DETECTED (NOT DETECTED)
== END 2022-11-10 10:27 | disposition home or self-care (01) ==
LOC: HO.HHCL 10:26
PROVIDERS: Visit Provider Internal Medicine
DX: Z11.3 Encounter for screening for infections with a predominantly sexual mode of transmission (principal); Z11.4 Encounter for screening for human immunodeficiency virus [HIV]
CPT/HCPCS: 36415; 82565; 86780; 86803; 87536

== ENCOUNTER 2022-11-26 15:40 | Outpatient (REF) | payer MEDICAID, SELFPAY | END 2022-11-26 15:41 | disposition home or self-care (01) | LOC: HO.HHCL 15:40 | PROVIDERS: Visit Provider Internal Medicine | DX: Z11.4 Encounter for screening for human immunodeficiency virus [HIV] (principal); Z20.2 Contact with and (suspected) exposure to infections with a predominantly sexual mode of transmission | CPT/HCPCS: 36415; 80076; 87536 ==

== ENCOUNTER 2023-01-06 14:20 | Outpatient (REF) | payer MEDICAID, SELFPAY ==
[2023-01-07 14:48] LABS: HIV RNA PCR Qn Copies NOT DETECTED copies/mL (NOT DETECTED); HIV RNA PCR Qn Log Copies NOT DETECTED (NOT DETECTED)
== END 2023-01-06 14:21 | disposition home or self-care (01) ==
LOC: HO.HHCL 14:20
PROVIDERS: Visit Provider Internal Medicine
DX: Z79.899 Other long term (current) drug therapy (principal)
CPT/HCPCS: 36415; 87536

== ENCOUNTER 2023-03-03 14:02 | Outpatient (REF) | payer MEDICAID, SELFPAY ==
[2023-03-03 16:46] LABS: Alanine Aminotransferase 26 U/L (0-40); Albumin Level 4.3 g/dL (3.5-5.0); Alkaline Phosphatase 83 U/L (39-117); Aspartate Amino Transferase 24 U/L (5-37); Bilirubin Direct 0.2 mg/dL (0.0-0.5); Bilirubin Total 0.4 mg/dL (0.0-1.0); Total Protein 7.5 g/dL (6.5-8.0)
[2023-03-04 08:09] LABS: ~HepC Num1 0.14 S/CO (0.00-0.79); ~Hepatitis C Antibody Nonreactive (Nonreactive)
[2023-03-04 08:19] LABS: Syphilis Screen Nonreactive (Nonreactive)
[2023-03-08 14:28] LABS: HIV RNA PCR Qn Copies NOT DETECTED copies/mL (NOT DETECTED); HIV RNA PCR Qn Log Copies NOT DETECTED (NOT DETECTED)
== END 2023-03-03 14:03 | disposition home or self-care (01) ==
LOC: HO.HHCL 14:02
PROVIDERS: Visit Provider Internal Medicine
DX: Z79.899 Other long term (current) drug therapy (principal)
CPT/HCPCS: 36415; 80076; 86780; 86803; 87536

== ENCOUNTER 2023-04-25 14:37 | Outpatient (REF) | payer MEDICAID, SELFPAY ==
--- NOTE | ~2023-04-25 | US_ITS ---
EXAMINATION: US SOFT TISSUE HEAD/NECK CLINICAL INFORMATION: Neck lymphadenopathy. COMPARISON: None available. TECHNIQUE: Linear transducer caro-scale and color Doppler examination with attention to the palpable regions of concern in the bilateral neck. FINDINGS: Area of palpable concern corresponds to morphologically benign-appearing cervical nodes which are not enlarged and maintained normal hilar architecture measuring up to 1.2 x 0.3 cm in the right lateral neck and 0.4 x 1.2 cm and the left neck. US/US soft tiss head and/or neck IMPRESSION: Area of palpable concern corresponds to morphologically benign-appearing cervical nodes.
== END 2023-04-25 14:38 | disposition home or self-care (01) ==
LOC: HO.US 14:37
PROVIDERS: PCP Internal Medicine; Visit Provider Internal Medicine
DX: R59.1 Generalized enlarged lymph nodes (principal)
CPT/HCPCS: 76536

== ENCOUNTER 2023-07-20 14:36 | Outpatient (REF) | payer MEDICAID, SELFPAY ==
[2023-07-20 17:17] LABS: Alanine Aminotransferase 35 U/L (0-40); Albumin Level 4.1 g/dL (3.5-5.0); Alkaline Phosphatase 87 U/L (39-117); Aspartate Amino Transferase 24 U/L (5-37); Bilirubin Direct 0.2 mg/dL (0.0-0.5); Bilirubin Total 0.4 mg/dL (0.0-1.0); C Reactive Protein 0.21 mg/dL (< or = 0.50); Cholesterol 117 mg/dL (<200); Estimated Glomerular Filt Rate > 60; HDL Cholesterol 40 mg/dL (>40); LDL Cholesterol Calculated 57 mg/dL (<100); Total Protein 7.3 g/dL (6.5-8.0); Triglycerides 103 mg/dL (<150)
[2023-07-20 17:31] LABS: Rheumatoid Factor < 13.0 IU/mL (<15.0)
[2023-07-20 17:34] LABS: TSH reflex Free T4 0.96 uIU/mL (0.32-4.0)
[2023-07-20 18:00] LABS: Erythrocyte Sedimentation Rate 3 MM/HR (0-15)
[2023-07-21 08:59] LABS: ~HepC Num1 0.12 S/CO (0.00-0.79); ~Hepatitis C Antibody Nonreactive (Nonreactive)
[2023-07-21 09:09] LABS: Syphilis Screen Nonreactive (Nonreactive)
[2023-07-23 12:39] LABS: HIV RNA PCR Qn Copies NOT DETECTED copies/mL (NOT DETECTED); HIV RNA PCR Qn Log Copies NOT DETECTED (NOT DETECTED)
[2023-07-26 13:13] LABS: Anti Nuclear Antibody Screen POSITIVE (NEGATIVE); Anti Nuclear Antibody Titer 1:40 titer
== END 2023-07-20 14:37 | disposition home or self-care (01) ==
LOC: HO.HHCL 14:36
PROVIDERS: Visit Provider Internal Medicine
DX: R53.83 Other fatigue (principal); Z11.3 Encounter for screening for infections with a predominantly sexual mode of transmission; Z79.899 Other long term (current) drug therapy
CPT/HCPCS: 36415; 80061; 80076; 82565; 84443; 85652; 86038; 86039; 86140; 86431; 86780; 86803; 87536

== ENCOUNTER 2023-08-26 11:14 | Outpatient (AMB) | payer MEDICAID, SELFPAY ==
[2023-08-26 11:16] VITALS: BP 116/74; PULSE 88; O2SAT 98; BMI 40.5
--- NOTE | 2023-08-26 11:16 | MHC.OFFVIS ---
Vital Signs 08/26/23 11:16 Height 5 ft 11 in Weight 290 lb 9.108 oz BMI 40.5 BP 116/74 Blood Pressure Location Rt brachial Position Sitting Pulse 88 Pulse Source Pulse Oximeter Pulse Oximetry (%) 98 Oxygen Delivery Method Room Air Intake Visit Reasons: + APRYL Intake Note: New patient referred by PCP for positive APRYL. Allergies No Known Allergies [No Known Allergies*] Allergy (Verified 08/26/23 11:19) Medication List - Last Reconciled 08/26/23 by Emerson Shanks MD albuterol sulfate 90 mcg/actuation (ProAir HFA) 2 puffs PO Q4-6H PRN bisacodyl (Dulcolax (bisacodyl)) 10 mg (2 x 5 mg) PO ONCE 1 day bismuth subsalicylate 2 tabs PO QID 14 days cyclobenzaprine 10 mg PO TID PRN cyclobenzaprine 5 mg PO TID PRN hydrocortisone 2.5% (Proctosol HC) 1 appl WA BID-QID PRN ibuprofen 600 mg PO TID PRN linaclotide (Linzess) 145 mcg PO DAILY metronidazole 1,000 mg (2 x 500 mg) PO BID omeprazole 40 mg PO DAILY omeprazole 20 mg PO BID 14 days polyethylene glycol 3350 (Miralax) 17 grams PO DAILY polyethylene glycol 3350 (Miralax) 238 grams PO ONCE HPI Comments Details: This is a 33-year-old male who is referred for evaluation of a positive APRYL. Patient does not recall why the test was done but he feels it might be related to his chest pains. Patient states that his father's uncles have lupus. There is no known immediate family member with an autoimmune rheumatic disease. He denies any history of DVT/PE. Denies any skin rashes. Denies any fevers or weight loss. Denies any blood or frothy urine. [facility] Medical History Anxiety Asthma Hypokalemia Surgical History Hx of adenoidectomy History of esophagogastroduodenoscopy (EGD) Family History Family/Other Colon cancer Paternal Aunt Colon cancer Social History Household Members: Children Housing: Apartment Do you presently have visiting nurse or other home services: No Alcohol intake: never Patient Tobacco Use Status: Never used Tobacco Substance Use Type: Marijuana Review of Systems Const Reports weakness Musc Reports myalgias Skin/Breast Denies rash Neuro Reports weakness Physical Exam Vital Signs: Last Vital Signs Pulse 88 08/26/23 11:16 BP 116/74 08/26/23 11:16 Pulse Ox 98 08/26/23 11:16 Oxygen Delivery Method Room Air 08/26/23 11:16 BMI result Body Mass Index 40.5 Const General: cooperative, healthy appearing and comfortable Nutritional Appearance: obese morbidly obese Orientation/consciousness: patient oriented x3 Limitations: no limitations HEENT Head: Yes normocephalic and Yes atraumatic Mouth: moist mucous membranes Resp Effort & Inspection: normal respiratory effort and able to speak in complete sentences Auscultation: clear to auscultation bilaterally Cardio Rate: regular rate Rhythm: regular rhythm Skin General skin exam: no rashes or lesions noted Neuro General: patient oriented x3 Extrem Other: No active synovitis Normal nailfold capillaroscopy Assessment & Plan Assessment & Plan (1) APRYL positive: Code(s): R76.8 - Other specified abnormal immunological findings in serum Category: Medical Plan: This is a 33-year-old male who is referred for evaluation of positive APRYL 1-40 dfs pattern. I do not see any evidence of an autoimmune rheumatic disease upon my evaluation. His APRYL is of very low titer and is generally considered negative specially with a dfs pattern. Follow-up with PCP Plan I spent 20 minutes reviewing patient's chart, evaluating patient, counseling patient and documenting in the chart Coding Level of Care Code Est Pt Level 3 (84763) Diagnoses APRYL positive R76.8
== END 2023-08-26 11:38 | disposition home or self-care (01) ==
PROVIDERS: PCP Internal Medicine; Referring Provider Internal Medicine; Visit Provider Student in an Organized Health Care Education/Training Program
DX: R76.8 Other specified abnormal immunological findings in serum (principal)
CPT/HCPCS: 99213

== ENCOUNTER → 2023-08-26 11:14 | Outpatient (BNVA) | payer MEDICAID, SELFPAY | PROVIDERS: PCP Internal Medicine; Visit Provider Student in an Organized Health Care Education/Training Program | DX: R76.8 Other specified abnormal immunological findings in serum (principal) | CPT/HCPCS: 99212 ==

== ENCOUNTER 2024-01-04 11:19 | Outpatient (REF) | payer MEDICAID, SELFPAY ==
[2024-01-04 13:58] LABS: Estimated Glomerular Filt Rate > 60
[2024-01-04 14:14] LABS: Syphilis Screen Nonreactive (Nonreactive)
[2024-01-04 14:21] LABS: ~HepC Num1 0.15 S/CO (0.00-0.79); ~Hepatitis C Antibody Nonreactive (Nonreactive)
[2024-01-06 08:58] LABS: HIV RNA PCR Qn Copies NOT DETECTED copies/mL (NOT DETECTED); HIV RNA PCR Qn Log Copies NOT DETECTED (NOT DETECTED)
== END 2024-01-04 11:20 | disposition home or self-care (01) ==
LOC: HO.HHCL 11:19
PROVIDERS: Visit Provider Internal Medicine
DX: Z11.3 Encounter for screening for infections with a predominantly sexual mode of transmission (principal); Z11.4 Encounter for screening for human immunodeficiency virus [HIV]
CPT/HCPCS: 36415; 82565; 86780; 86803; 87536

== ENCOUNTER 2024-04-04 09:01 | Outpatient (AMB) | payer MEDICAID, SELFPAY ==
--- NOTE | 2024-04-04 09:11 | A.OFFVIS_ITS ---
Vital Signs 04/04/24 09:12 Height 5 ft 11 in Weight 290 lb BMI 40.4 Intake Visit Reasons: X [employer]- Right hand lac, dog bite DOI Intake Note: Ruy 33 yr old right hand dominant male presents today for a new patient visit for his right hand laceration. States he was bite by his neighbors dog on 03/27/24. States he was seen at [facility] where xrays were taken, laceration was sutured up and was Rx'd ABX. Currently states he has alot of pain and is limited ROM with his middle and small finger. States its hurts to move his fingers and his wrist. States his is feeling numbness by his palm area that comes and goes. States he was given amoxicillian but will D/C today due to having a reaction to medication. Allergies No Known Allergies [No Known Allergies*] Allergy (Verified 04/04/24 09:19) HPI HPI X [employer]- Right hand lac, dog bite DOI: Details: Ruy is a 33 year old right hand dominant man who presents for a right hand dog bite, DOI: 03/27/24. He says he was bitten on his right hand & right hip by his neighbors dog. He was seen at [place] [facility] where his hand was sutured. He was given a course of Flagyl, but began developing a rash, and was switched to Augmentin. He complains of a throbbing pain in his hand, along with some swelling. He says he has difficulty with flexion of his middle, ring, and small fingers. He complains of intermittent numbness in his palm, near his injury site, and his ring & small fingers. He says his sensation is more normal to the median nerve distribution. He says that he has increased pain & swelling in his hand at night, and has to sleep with his hand elevated. He has not been bending his fingers at home. 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 [facility] Medical History Anxiety Asthma Hypokalemia Surgical History Hx of adenoidectomy History of esophagogastroduodenoscopy (EGD) Family History Family/Other Colon cancer Paternal Aunt Colon cancer Social History Household Members: Children Housing: Apartment Do you presently have visiting nurse or other home services: No Alcohol intake: never Patient Tobacco Use Status: Never used Tobacco Substance Use Type: Marijuana Review of Systems Const All systems reviewed & are unremarkable except as noted in HPI and below Physical Exam Vital Signs: BMI result Body Mass Index 40.4 Const General: cooperative, healthy appearing and no acute distress Orientation/consciousness: patient oriented x3 HEENT Head: Yes normocephalic and Yes atraumatic Eyes EOM: EOMs intact bilaterally Resp Effort & Inspection: normal respiratory effort and able to speak in complete sentences Cardio Jugular venous distension: no JVD Skin General skin exam: turgor normal Rashes: no rashes Neuro General: patient oriented x3 Extrem Other: Evaluation of Right Upper Extremity: The patient is alert, oriented, and in no acute distress He has a 2 cm oblique laceration in the palm of his hand roughly over the hook of the hamate. The wound is sutured closed, healing with no erythema drainage or evidence of infection. He does have some mild generalized swelling in the palm of the hand extending some into the thenar aspect of the hand. The swelling is soft. Most of his tenderness is in the area about the laceration and extending proximally over the hypothenar aspect of the hand to the wrist. Again this was a Dominican Santana who bit his hand. His hand his initially held in a position of disuse but with all of the fingers held with some flexion at the PIP and D IP joints. He has not been moving his fingers secondary to pain. FDP and FDS tendon were intact to each of the digits, and the FPL tendon was int act of the thumb. Normal sensation to the radial and ulnar digital nerve distributions of each of the fingers and the thumb. ROM: We worked on ROM exercises today in clinic Before leaving clinic he could bring his fingers weakly close to a fist, and place his hand almost flat on the table He could oppose his thumb to the tips of all digits Radiographs: 3 views of the right hand were taken and viewed by me today in clinic. They show no fractures or dislocations. Psych Appearance: grossly normal Affect: normal affect Attitude: cooperative Assessment & Plan Assessment & Plan (1) Dog bite of right palm: Code(s): S61.451A - Open bite of right hand, initial encounter; W54.0XXA - Bitten by dog, initial encounter Category: Medical (2) Stiffness of right hand joint: Code(s): M25.641 - Stiffness of right hand, not elsewhere classified Category: Medical Plan Assessment & Plan: 1. Right palm dog bite laceration DOI: 03/27/24 Intact nerve and tendon function I educated him about this condition I discussed operative and non-operative treatment options Fortunately, this can be managed non-operatively, and he is in agreement His biggest risk at this point is infection. He is to continue his antibiotics as directed until finished. I explained the signs and symptoms of infection, if the patient develops any new or worsening erythema, drainage, pain, or warmth they should contact the clinic or attend the ED. 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 He was given a note to remain out of work until at least his next appointment. He will follow up next for a wound check, and remaining suture removal. No x- rays unless he has a new injury Scribed for Mayra Chirinos MD by Keyur Stokes chief medical director, on 04/04/24 at 9:35 AM, EST. Orders: Orders XR hand RT min 3V Today M79.641 - Pain in right hand Coding Level of Care Code New Pt Level 4 (22094) Diagnoses Dog bite of right palm S61.451A; W54.0XXA Stiffness of right hand joint M25.641
[2024-04-04 09:12] VITALS: BMI 40.4
--- OUTSIDE RECORDS SUMMARY | 2024-04-04 09:52 | XMS_ITS | Clinical Summary ---
Author Organization [address] [facility] Address [address] [place] [address] Phone Care Team Providers Care [employer] Name Role Phone Nikki Baker MD Primary Care Provide r Social History Tobacco Use Types Packs/Day Years Used Date Smoking Tobacco: Never Assessed Sex and Gender Information Value Date Recorded Sex Assigned at Not on file Legal Sex Male 1:46 AM EST Gender Identity Not on file Sexual Orientation Not on file Plan of Treatment Upcoming Encounters Date Type Department Care Team ([facility] st Contact Info) Description 04/04/2024 11:00 AM EST Office Visit Bariatric Surgery [facility] 175 [facility] [address] [place] [address] Urvashi Davis MD [address] [address] Health Maintenance Due Date Last Done Comments DTaP,Tdap,and Td Vaccines (1 - Tdap) 07/24/2011 Hepatitis B Vaccines (1 of 3 - 19+ 3-dose series) 07/24/2011 Depression Screening 01/24/2022 HIV Screening 01/24/2022 Hepatitis C Screening 01/24/2022 Social Influencers of Health Screening 01/24/2022 COVID-19 Vaccine ( - 2023-2 5 season) 2023 Influenza Vaccine (#1) 2023 HIB Vaccines Aged Out No longer eligi ble based on patient's age to complete this topic HPV Vaccines Aged Out No longer eligi ble based on patient's age to complete this topic Hepatitis A Vaccines Aged Out No long er eligible based on patient's age to complete this topic IPV Vaccines Aged Out No longer eligi ble based on patient's age to complete this topic MMR Vaccines Aged Out No longer eligi ble based on patient's age to complete this topic Meningococcal ACWY Vaccine Aged Out N o longer eligible based on patient's age to complete this topic Meningococcal B Vacine Aged Out No lo nger eligible based on patient's age to complete this topic Pneumococcal Vaccine: Pediat rics (0 to 5 Years) and At-Risk Patients (6 to 64 Years) Aged Out No longer eligible b ased on patient's age to complete this topic RSV Immunization Patients Un ameya 20 months Aged Out No longer eligible b ased on patient's age to complete this topic Varicella Vaccines Aged Out No longer eligible based on patient's age to complete this topic Insurance MEDICAID - [place] Care Teams [employer] Relationship Specialty Start Date End Date Nikki Baker MD [address] [facility] [address] [place] [address] PCP - General Internal Medicine 01/10/24
--- OUTSIDE RECORDS SUMMARY | 2024-04-04 09:52 | XMS_ITS | Encounter Summary ---
Author Organization [employer] Address [address] [place] [address] [address] [place] [address] Care Team Providers Care [employer] Name Role Phone Nikki Baker MD Primary Care Provide r Encounter Details Date Type Department Care Team (Late st Contact Info) Description 03/29/2022 [facility] [employer] [address] [place], [place] [phone] Nikki Baker MD [address] [place], [place] [phone] Social History Tobacco Use Types Packs/Day Years Used Date Smoking Tobacco: Never Assessed Sex and Gender Information Value Date Recorded Sex Assigned at Male 12/21/2021 10:14 AM EDT Legal Sex Male 10:14 AM EDT Gender Identity Male 12/21/2021 10:14 AM EDT Sexual Orientation Bisexual 10/14/2022 11 :30 AM EDT documented as of this encounter Plan of Treatment Upcoming Encounters Date Type Department Care Team (Late st Contact Info) Description 05/16/2024 10:00 AM EDT Office Visit [facility] MEDICINE [address] [place], [place] [phone] Nikki Baker MD [address] [place], [place] [phone] documented as of this encounter Visit Diagnoses Not on filedocumented in this encounter Care Teams V[employer] Relationship Specialty Start Date End Date Nikki Baker MD [address] [place], [place] [phone] PCP - General Family Medicine 07/21/18 documented as of this encounter
--- OUTSIDE RECORDS SUMMARY | 2024-04-04 09:52 | XMS_ITS | Encounter Summary ---
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 Name Role Phone Nikki Baker MD Primary Care Provide r Reason for Referral * Consultation (Routine) - Authorized Specialty Diagnoses / Procedures Referred By Contac t Referred To Contact Behavioral Health Diagnoses Depressive disorder Anxiety Mood disorder (CMS/HCC) Nikki Baker MD [address] [place] [address] Phone: tel: fax: Referral ID Status Reason Start Date Expiration Date Visits Requested Visits Authorized [id number] Authorized Specialty Services Required 04/02/2024 04/02/2025 1 1 * Consultation (STAT) - Closed Specialty Diagnoses / Procedures Referred By Contac t Referred To Contact Hand Surgery Diagnoses Laceration of right hand without foreign body, initial encounter Nikki Baker MD [address] [place] [address] Phone: tel: fax: [facility] [address] [place] [address] Drive [address] [place], [place] Phone: tel: fax: Referral ID Status Reason Start Date Expiration Date V isits Requested Visits Authorized [id number] Closed Specialty Services Required 04/03/2024 04/02/2025 6 6 * Imaging (Routine) - Authorized Specialty Diagnoses / Procedures Referred By Contac t Referred To Contact Radiology Diagnoses Laceration of right hand without foreign body, initial encounter Procedures MR Hand w/o Contrast Right Nikki Baker MD [address] [place] [address] Phone: tel: fax: [facility] [address] [place] [address] Phone: tel: fax: Referral ID Status Reason Start Date Expiration Date V isits Requested Visits Authorized [id number] Authorized 04/02/2024 04/02/2025 1 1 Encounter Details Date Type Department Care Team (Late st Contact Info) Description 04/02/2024 2:30 PM EST Office Visit [facility] [address] [place] [phone] Nikki Baker MD [address] [place] [phone] Depressive disorder (Primary Dx); Anxiety; Laceration of right hand without foreign body, initial encounter; Mood disorder (CMS/HCC) Social History Tobacco Use Types Packs/Day Years Used Date Smoking Tobacco: Never Passive Smoke Exposure: Never Smokeless Tobacco: Never Tobacco Cessation:Counseling Given: Not Answered Alcohol Use Standard Drinks/Week Comments Never 0 (1 standard drink = 0.6 oz pur e alcohol) Depression Answer Date Recorded Patient Health Questionnaire-9 Score 0 09/02/2023 Patient Health Questionnaire-9 Score 0 09/02/2023 Last PHQ-9: Questionnaire Data Not on file 0 09/02/2023 Housing Stability Answer Date Recorded What is your housing situation today? I have reji garcia 09/02/[address] you li ve. Do you have problems with any of the following? None of the above 09/02/2023 Food Insecurity Answer Date Recorded Within the past 12 months, y ou worried that your food would run out before you got money to buy more: Never True 09/02/2023 Within the past 12 months,th e food you bought just didn't last and you didn't have enough money to get more: Never True 01/2024 Transportation Answer Date Recorded In the past 12 months, has l ack of transportation kept you from medical appts, meetings, work or from getting things needed for daily living? No 09/02/2023 Utilities Answer Date Recorded In the past 12 months, has t he electric, gas, oil or water company threatened to shut off services in your home? No 09/02/2023 Depression Answer Date Recorded Patient Health Questionnaire-2 Score 0 09/02/2023 Internet Access Answer Date Recorded Internet Access Q1 No 10/24/2023 Internet Access Q2 Not on file 10/24/2023 Sex and Gender Information Value Date Recorded Sex Assigned at Male 12/21/2021 10:14 AM EDT Legal Sex Male 10:14 AM EDT Gender Identity Male 12/21/2021 10:14 AM EDT Sexual Orientation Bisexual 10/14/2022 11 :30 AM EDT documented as of this encounter Last Filed Vital Signs Vital Sign Reading Time Taken Comments Blood Pressure 132/77 04/02/2024 2:36 PM EST Pulse 77 04/02/2024 2:36 PM EST Temperature 36.6 ??C (97.8 ??F) 04/02/2024 2:36 PM ES T Respiratory Rate 18 04/02/2024 2:36 PM EST Oxygen Saturation - - Inhaled Oxygen Concentration - - Weight 133 kg (292 lb 9.6 oz) 04/02/2024 2:36 PM EST Height 180.3 cm (5' 11 ) 04/02/2024 2:36 PM EST Body Mass Index 40.81 04/02/2024 2:36 PM EST documented in this encounter Progress Notes * Nikki Bower MD - 04/02/2024 2:30 PM EST Images from the original note were not included. SUBJECTIVE: Ruy Dickerson is a 33 y.o. year old male who presents for ED f/u appointment . Acute Concerns: Patient explains he was arriving at his home when suddenly the neighbors dog attacked him, he was bitten on his right hand and right hip area, he went to the emergency room for further evaluation he got stitches on his hand, reports he continues to have pain 10/10 on his hand reports pain is deep inside radiating to his wrist like an electrical shock and reports he is not able to extend his fourth and fifth finger, reports he continues to have some swelling on on the area, also he has been affected emotionally reports he has flashbacks and remembers the dog on top of him Social History Social History Narrative Not on file Patient Active Problem List Diagnosis Anxiety Asthma Eczema Mood disorder ([facility]/HCC) Adjustment disorder with depressed mood Acne Binocular vision disorder Sleep disorder Colitis Depression, major, recurrent, severe with psychosis ([facility]) Dizziness Epigastric pain Excess skin of breast Fatigue Gastroesophageal reflux disease Heel pain Insomnia Hand pain Numbness of hand Overweight Urinary incontinence Herpes simplex type 2 infection Depressive disorder Acute pain of right knee Lymphadenopathy of head and neck Palpitations Precordial pain Cervical lymphadenopathy Folliculitis Positive APRYL (antinuclear antibody) Otitis media, acute Class 3 severe obesity due to excess calories with serious comorbidity and body mass index (BMI) of40.0 to 44.9 in adult ([facility]) Fibromyalgia Neuroma digital nerve Laceration of left hand without foreign body Laceration of right hand without foreign body No family history on file. Review of Systems Constitutional: Negative. HENT: Negative. Respiratory: Negative. Cardiovascular: Negative. Musculoskeletal: Positive for arthralgias and myalgias. Psychiatric/Behavioral: The patient is nervous/anxious. OBJECTIVE: Vitals: 04/02/24 1436 BP: 132/77 BP Location: Left arm Patient Position: Sitting BP Cuff Size: Adult Pulse: 77 Resp: 18 Temp: 97.8 ??F (36.6 ??C) TempSrc: Oral Weight: 292 lb 9.6 oz (133 kg) Height: 5' 11 (1.803 m) Physical Exam Constitutional: Appearance: Normal appearance. Cardiovascular: Rate and Rhythm: Normal rate and regular rhythm. Pulmonary: Effort: Pulmonary effort is normal. Breath sounds: Normal breath sounds. Musculoskeletal: Hands: Comments: Stitches are intact, swelling is noticed, no discharge is noticed Patient is not able to extend his third fourth and fifth finger, this fingers are currently flexed,he was able to flex and extend his thumb and index finger Skin: Comments: Ecchymosis is noticed on her right hip area Neurological: Mental Status: He is alert. Follow Up: No follow-ups on file. Current Outpatient Medications on File Prior to Visit Medication Sig Dispense Refill bacitracin-polymyxin b (Polysporin) ointment Apply topically 2 times daily. 15 g 0 emtricitabine-tenofovir AF (Descovy) 200-25 MG tablet Take 1 tablet by mouth Once per day. 30 tablet 2 emtricitabine-tenofovir AF (Descovy) 200-25 MG tablet Take 1 tablet by mouth Once per day. 30 tablet 2 [DISCONTINUED] hydrOXYzine pamoate (Vistaril) 50 MG capsule Take 1 capsule (50 mg) by mouth every 8(eight) hours if needed for itching for up to 10 days. 30 capsule 0 [DISCONTINUED] QUEtiapine (SEROquel) 50 MG tablet Take 1 tablet (50 mg) by mouth at bedtime. 30 tablet 0 Current Facility-Administered Medications on File Prior to Visit Medication Dose Route Frequency Provider Last Rate Last Admin doxycycline (Adoxa) tablet 100 mg 100 mg Oral BID Gene CECI Merchant 100 mg at 02/18/22 1407 Problem List Items Addressed This Visit Depressive disorder - Primary Relevant Medications QUEtiapine (SEROquel) 50 MG tablet Other Relevant Orders Referral to Behavioral Health Anxiety Patient would like to reinitiate his medications for his mood disorder and anxiety reports this event has caused him to have more anxiety and has not been able to sleep BHN referral is being done today Relevant Medications hydrOXYzine pamoate (Vistaril) 50 MG capsule Other Relevant Orders Referral to Behavioral Health Laceration of right hand without foreign body Relevant Medications oxyCODONE (Roxicodone) 5 MG immediate release tablet gabapentin (Neurontin) 300 MG capsule sulfamethoxazole-trimethoprim (Bactrim DS) 800-160 MG tablet bacitracin-polymyxin b (Polysporin) ointment Other Relevant Orders MR Hand w/o Contrast Right Referral to Hand Surgery Mood disorder (CMS/HCC) Relevant Orders Referral to Behavioral Health documented in this encounter Miscellaneous Notes * Assessment & Plan Note - Nikki Bower MD - 04/02/2024 4:57 PM EST Associated Problem(s): Anxiety Patient would like to reinitiate his medications for his mood disorder and anxiety reports this event has caused him to have more anxiety and has not been able to sleep BHN referral is being done today documented in this encounter Plan of Treatment Upcoming Encounters Date Type Department Care Team (Late st Contact Info) Description 05/16/2024 10:00 AM EDT Office Visit [facility] [address] [place] [address] Nikki Baker MD [address] [place] [address] Scheduled Orders Name Type Priority Associated Diagnoses Orde r Schedule MR Hand w/o Contrast Right Imaging Routine Laceration of right hand without foreign body, initial encounter Expected: 04/02/2024, Expires: 04/02/2025 Scheduled Referrals Name Type Priority Associated Diagnoses Order Schedule Referral to Hand Surgery Outpatient Referral STAT Laceration of right hand without foreign body, initial encounter Expected: 04/02/2024 (Approximate), Expires: 04/02/2025 Referral to Behavioral Health Outpatient Referral Routine Depressive disorder Anxiety Mood disorder (CMS/HCC) Expected: 04/02/2024 (Approximate), Expires: 04/02/2025 documented as of this encounter Visit Diagnoses Diagnosis Depressive disorder- Primary Depressive disorder, not elsewhere classified Anxiety Anxiety state, unspecified Laceration of right hand without foreign body, initial encounter Mood disorder (CMS/HCC) Unspecified episodic mood disorder documented in this encounter Additional Health Concerns Active Problems Noted Date Diagnosed Date Adjustment disorder with depressed mood 06/01/19 23 Assessment Noted Time PHQ-9 Depression Total Score: 0 09/02/19 24 11:42 AM EDT documented as of this encounter Care Teams Refinery Operator Helper Relationship Specialty Start Date End Date Nikki Baker MD [address] [place] [phone] PCP - General Family Medicine 07/21/18 documented as of this encounter
--- OUTSIDE RECORDS SUMMARY | 2024-04-04 09:52 | XMS_ITS | Encounter Summary ---
Author Organization [employer] Address [address] [facility] 7t [place] [address] Care Team Providers Care Cattle Shipper Name Role Phone Nikki Baker MD Primary Care Provide r Reason for Visit * Reason Comments Med Refill Encounter Details Date Type Department Care Team ([facility] st Contact Info) Description 05/22/2023 Refill [facility] [address] [place], [place] [phone] Bettye Hsu DO [address] [place], [place] [phone] Screening for STD (sexually transmitted disease) Social History Tobacco Use Types Packs/Day Years Used Date Smoking Tobacco: Never Smokeless Tobacco: Never Depression Answer Date Recorded Patient Health Questionnaire-9 Score 21 05/31/2022 Housing Stability Answer Date Recorded What is your housing situation today? I have reji garcia 11/29/[address] you li ve. Do you have problems with any of the following? Pests such as bugs, ants, or mice 11/29/2022 Food Insecurity Answer Date Recorded Within the past 12 months, y ou worried that your food would run out before you got money to buy more: Sometimes True 2022 Within the past 12 months,th e food you bought just didn't last and you didn't have enough money to get more: Sometimes True 12/23/2022 Transportation Answer Date Recorded In the past 12 months, has l ack of transportation kept you from medical appts, meetings, work or from getting things needed for daily living? No 12/23/2022 Utilities Answer Date Recorded In the past 12 months, has t he electric, gas, oil or water company threatened to shut off services in your home? Yes 11/29/2022 Depression Answer Date Recorded Patient Health Questionnaire-2 Score 5 05/31/2022 Sex and Gender Information Value Date Recorded Sex Assigned at Male 12/21/2021 10:14 AM EDT Legal Sex Male 10:14 AM EDT Gender Identity Male 12/21/2021 10:14 AM EDT Sexual Orientation Bisexual 10/14/2022 11 :30 AM EDT documented as of this encounter Plan of Treatment Upcoming Encounters Date Type Department Care Team (Late st Contact Info) Description 05/16/2024 10:00 AM EDT Office Visit [facility] [address] [place] [address] Nikki Baker MD [address] [place] [address] documented as of this encounter Visit Diagnoses Diagnosis Screening for STD (sexually transmitted disease) documented in this encounter Additional Health Concerns Active Problems Noted Date Diagnosed Date Adjustment disorder with depressed mood 06/01/19 23 Assessment Noted Time PHQ-9 Depression Total Score: 21 023 1:27 PM EDT documented as of this encounter Care Teams Cattle Shipper Relationship Specialty Start Date End Date Nikki Baker MD [address] [place] [phone] PCP - General Family Medicine 07/21/18 documented as of this encounter
--- OUTSIDE RECORDS SUMMARY | 2024-04-04 09:52 | XMS_ITS | Encounter Summary ---
Author Organization [employer] Address [address] [facility] 7t [place] [address] Care Team Providers Care Splitting Machine Operator Helper Name Role Phone Nikki Baker MD Primary Care Provide r Encounter Details Date Type Department Care Team ([facility] st Contact Info) Description 04/02/2024 Orders Only [facility] MED[facility]INE [address] [place], [place] [phone] Nikki Baker MD [address] [place], [place] [phone] On pre-exposure prophylaxis for HIV (Primary Dx) Social History Tobacco Use Types Packs/Day Years Used Date Smoking Tobacco: Never Passive Smoke Exposure: Never Smokeless Tobacco: Never Alcohol Use Standard Drinks/Week Comments Never 0 [...] Description 05/16/2024 10:00 AM EDT Office Visit [facility] MED[facility] [address] [place] [address] Nikki Baker MD [address] [place] [address] documented as of this encounter Visit Diagnoses Diagnosis On pre-exposure prophylaxis for HIV- Primary documented in this encounter Additional Health Concerns Active Problems Noted Date Diagnosed Date Adjustment disorder with depressed mood 06/01/19 23 Assessment Noted Time PHQ-9 Depression Total Score: 0 09/02/19 24 11:42 AM EDT documented as of this encounter Care Teams Splitting Machine Operator Helper Relationship Specialty Start Date End Date Nikki Baker MD [address] [place] [phone] PCP - General Family Medicine 07/21/18 documented as of this encounter
--- OUTSIDE RECORDS SUMMARY | 2024-04-04 09:53 | XMS_ITS | Encounter Summary ---
Author Organization [employer] Address [address] [facility] 7t [place] [address] Care Team Providers Care Detonator Assembler Name Role Phone Nikki Baker MD Primary Care Provide r Reason for Visit * Reason Onset Date Comments Referral 09/02/2023 Encounter Details Date Type Department Care Team (Late st Contact Info) Description 09/02/[address] [facility] MED[facility]INE [address] [place], [place] [phone] Nikki Baker MD [address] [place], [place] [phone] Referral Social History Tobacco Use Types Packs/Day Years Used Date Smoking Tobacco: Never Passive Smoke Exposure: Never Smokeless Tobacco: Never Depression Answer Date [...] Recorded Patient Health Questionnaire-2 Score 0 09/02/2023 Sex and Gender Information Value Date Recorded Sex Assigned at Male 12/21/2021 10:14 AM EDT Legal Sex Male 10:14 AM EDT Gender Identity Male 12/21/2021 10:14 AM EDT Sexual Orientation Bisexual 10/14/2022 11 :30 AM EDT documented as of this encounter Miscellaneous Notes * Telephone Encounter - Aron Madden - 09/12/2023 12:27 PM EDT Tc from pt requesting to be referred to [facility] - [address], [place] [address] , states [facility] is no longer accepting new patients. Please contact at [phone] * Telephone Encounter - Marie Trevizo RN - 09/02/2023 12:49 PM EDT Bariatric surgery referral placed today, pt. Requesting location in [facility] * Telephone Encounter - Zari Perez - 09/02/2023 12:39 PM EDT Tc from pt calling requesting a different location on bariatric referral, stated [place] [facility] and he will like to be seen on [place]. documented in this encounter Plan of Treatment Upcoming Encounters Date Type Department Care Team (Late st Contact Info) Description 05/16/2024 10:00 AM EDT Office Visit [facility] MED[facility] [address] [place] [address] Nikki Baker MD [address] [place], [place] [phone] documented as of this encounter Visit Diagnoses Not on filedocumented in this encounter Additional Health Concerns Active Problems Noted Date Diagnosed Date Adjustment disorder with depressed mood 06/01/19 23 Assessment Noted Time PHQ-9 Depression Total Score: 0 09/02/19 24 11:42 AM EDT documented as of this encounter Care Teams Detonator Assembler Relationship Specialty Start Date End Date Nikki Baker MD [address] [place] [id number] PCP - General Family Medicine 07/21/18 documented as of this encounter
--- OUTSIDE RECORDS SUMMARY | 2024-04-04 09:53 | XMS_ITS | Encounter Summary ---
Author Organization [employer] Address [address] [facility] 7t [place] [address] Care Team Providers Care Boiler Technician Name Role Phone Nikki Baker MD Primary Care Provide r Encounter Details Date Type Department Care Team (Latest Contact Info) Description 04/02/2024 Travel Social History Tobacco Use Types Packs/Day Years [...] Description 05/16/2024 10:00 AM EDT Office Visit [facility] [address] [place] [address] Nikki Baker MD [address] [place] [address] documented as of this encounter Visit Diagnoses Not on filedocumented in this encounter Additional Health Concerns Active Problems Noted Date Diagnosed Date Adjustment disorder with depressed mood 06/01/19 23 Assessment Noted Time PHQ-9 Depression Total Score: 0 09/02/19 24 11:42 AM EDT documented as of this encounter Care Teams Boiler Technician Relationship Specialty Start Date End Date Nikki Baker MD [address] [place] [phone] PCP - General Family Medicine 07/21/18 documented as of this encounter
--- OUTSIDE RECORDS SUMMARY | 2024-04-04 09:53 | XMS_ITS | Encounter Summary ---
Author Organization [employer] Address [address] [facility] 7t [place] [address] Care Team Providers Care Civil Engineering Drafter Name Role Phone Nikki Baker MD Primary Care Provide r Reason for Visit * Reason Onset Date Comments Appointment Request 03/29/2024 Encounter Details Date Type Department Care Team (Late st Contact Info) Description 03/29/2024 Telephone [facility] MED[facility]INE [address] [place], [place] [phone] Nikki Baker MD [address] [place], [place] [phone] Appointment Request Social History Tobacco Use Types Packs/Day Years [...] encounter Miscellaneous Notes * Telephone Encounter - Tiffany Tavares - 03/29/2024 10:28 AM EST Tc from pt requesting appointment with PCP to follow up on chronic conditions. Adaptive Physical Education Specialist advise pt he is on a recall for June. Pt scheduled for ER follow up/Sick visit on 04/02/24 with Lilli but would still like to schedule a follow up with PCP. Adaptive Physical Education Specialist advise will send a message to medical assembler. Contact pt at [phone] documented in this encounter Plan of Treatment Upcoming Encounters Date Type Department Care Team (Late st Contact Info) Description 05/16/2024 10:00 AM EDT Office Visit [facility] MED[facility] [address] [place] [address] Nikki Baker MD [address] [place] [address] documented as of this encounter Visit Diagnoses Not on filedocumented in this encounter Additional Health Concerns Active Problems Noted Date Diagnosed Date Adjustment disorder with depressed mood 06/01/19 23 Assessment Noted Time PHQ-9 Depression Total Score: 0 09/02/19 24 11:42 AM EDT documented as of this encounter Care Teams Civil Engineering Drafter Relationship Specialty Start Date End Date Nikki Baker MD [address] [place] [address] PCP - General Family Medicine 07/21/18 documented as of this encounter
--- OUTSIDE RECORDS SUMMARY | 2024-04-04 09:53 | XMS_ITS | Encounter Summary ---
Author Organization [employer] Address [address] [facility] 7t [place] [address] Care Team Providers Care Iphone Developer Name Role Phone Nikki Baker MD Primary Care Provide r Reason for Visit * Reason Onset Date Comments ED follow up 03/30/2024 Encounter Details Date Type Department Care Team (Late st Contact Info) Description 03/30/2024 Telephone [facility] [address] [place], [place] [phone] Nikki Baker MD [address] [place], [place] [phone] ED follow up Social History Tobacco Use Types Packs/Day Years [...] encounter Miscellaneous Notes * Telephone Encounter - Rachel Fox RN - 03/30/2024 1:58 PM EST Telephone call placed to pt regarding below message. Pt reports already has ED follow up for Tuesdayand PCP appt in April but really wants PCP to see his wound. Was told to call to see if anything opens up on PCP schedule. Informed PCP had a cancellation for Tuesday. Pt agreeable. Cancelled ED follow up with Reeder scheduled for Tuesday and booked with PCP. * Telephone Encounter - Marie Hernandez - 03/30/2024 1:46 PM EST Received call from CRS Pattern Lease Inspector requesting ed follow up apt for pt as he reported visiting ed fordog attack. Informed crs fd I would forward message to team rns. documented in this encounter Plan of Treatment Upcoming Encounters Date Type Department Care Team (Late st Contact Info) Description 05/16/2024 10:00 AM EDT Office Visit [facility] [address] [place] [address] Nikki Baker MD [address] [place], [place] [phone] documented as of this encounter Visit Diagnoses Not on filedocumented in this encounter Additional Health Concerns Active Problems Noted Date Diagnosed Date Adjustment disorder with depressed mood 06/01/19 23 Assessment Noted Time PHQ-9 Depression Total Score: 0 09/02/19 24 11:42 AM EDT documented as of this encounter Care Teams Iphone Developer Relationship Specialty Start Date End Date Nikki Baker MD [address] [place] [phone] PCP - General Family Medicine 07/21/18 documented as of this encounter
--- OUTSIDE RECORDS SUMMARY | 2024-04-04 09:53 | XMS_ITS | Clinical Summary ---
Author Organization [employer] Address [address] [facility] 7[address] [place] [address] Care Team Providers Care Winding Inspector Name Role Phone Nikki Baker MD Primary Care Provide r Allergies No known active allergies Medications * This document contains information received from the source organization and may not represent a complete record from that organization. bacitracin-lou ymyxin b (Polysporin) ointment Apply topically 2 times daily. 15 g 09/07/19 23 Active emtricitabine- tenofovir AF (Descovy) 200-25 MG tabletIndicati ons:Exposure to sexually transmitted disease (STD) Take 1 tablet by mouth Once per day. 30 tablet 2 09/23/19 24 Active emtricitabine- tenofovir AF (Descovy) 200-25 MG tabletIndicati ons:Screening for STD (sexually transmitted disease) Take 1 tablet by mouth Once per day. 30 tablet 2 01/04/20 24 Active doxycycline (Vibra-Tabs) 100 MG tabletIndicati ons:On pre-exposure prophylaxis for HIV Take 2 tablets with in 72 hours of condomless vaginal, oral or anal sex 2 tablet 04/02/19 25 Active oxyCODONE (Roxicodone) 5 MG immediate release tabletIndicati ons:Laceration of right hand without foreign body, initial encounter Take 1 tablet (5 mg) by mouth every 6 (six) hours if needed for severe pain for up to 7 days. 28 tablet 04/02/19 25 025 Active gabapentin (Neurontin) 300 MG capsuleIndicat ions:Laceratio n of right hand without foreign body, initial encounter Take 1 capsule (300 mg) by mouth 3 times daily. 90 capsule 04/02/19 25 026 Active QUEtiapine (SEROquel) 50 MG tabletIndicati ons:Depressive disorder Take 1 tablet (50 mg) by mouth at bedtime. 30 tablet 04/02/19 25 025 Active hydrOXYzine pamoate (Vistaril) 50 MG capsuleIndicat ions:Anxiety Take 1 capsule (50 mg) by mouth every 8 (eight) hours if needed for itching for up to 10 days. 30 capsule 04/02/19 25 025 Active sulfamethoxazo le-trimethopri m (Bactrim DS) 800-160 MG tabletIndicati ons:Laceration of right hand without foreign body, initial encounter Take 1 tablet by mouth 2 times daily for 7 days. 14 tablet 04/02/19 25 025 Active bacitracin-lou ymyxin b (Polysporin) ointmentIndica tions:Lacerati on of right hand without foreign body, initial encounter Apply topically 2 times daily. 15 g 04/02/19 25 Active QUEtiapine (SEROquel) 50 MG tabletIndicati ons:Depressive disorder Take 1 tablet (50 mg) by mouth at bedtime. 30 tablet 09/02/19 24 025 Discontinued(Re order (will not trigger notification to Pharmacy)) hydrOXYzine pamoate (Vistaril) 50 MG capsuleIndicat ions:Anxiety Take 1 capsule (50 mg) by mouth every 8 (eight) hours if needed for itching for up to 10 days. 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 Otitis media, acute 09/02/2023 Class 3 severe obesity due t o excess calories with serious comorbidity and body mass index (BMI) of 40.0 to 44.9 in adult 09/02/2023 Assessment & Plan (01/09/2024 3:58 PM EST): Today extensive discussion was done about life style modifications I advise healthy diet (low calorie) and cardiovascular exercise Patient will continue bariatric program Fibromyalgia 09/02/2023 Assessment & Plan (09/02/2023 4:27 PM EDT): Patient was educated about multidisciplinary approach for her condition, it was advise cardiovascular exercise, maintain hydration, treat anxiety/depression and take medications as directed Positive APRYL (antinuclear antibody) 07/27/2023 Cervical lymphadenopathy 05/20/2023 Folliculitis 05/20/2023 Acute pain of right knee 04/08/2023 Lymphadenopathy of head and neck 04/08/2023 Palpitations 04/08/2023 Precordial pain 04/08/2023 Herpes simplex type 2 infection 06/15/2022 Assessment & Plan (06/15/2022 12:20 PM EDT): Counseling was done I advise not to have oral or genital sex if sores or blisters are present Condom use was advise Medication sent to pharmacy Colitis 06/11/2022 Dizziness 06/11/2022 Excess skin of breast 06/11/2022 Fatigue 06/11/2022 Gastroesophageal reflux disease 06/11/2022 Heel pain 06/11/2022 Insomnia 06/11/2022 Numbness of hand 06/11/2022 Urinary incontinence 06/11/2022 Assessment & Plan (05/20/2023 3:17 PM EDT): Bed pads will continue to be prescribed Adjustment disorder with depressed mood 06/01/19 23 Eczema 05/01/2022 Mood disorder 05/01/2022 Epigastric pain 05/16/2018 Depression, major, recurrent, severe with psycho sis 10/24/2014 Hand pain 10/24/2014 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 Anxiety 06/19/2012 Assessment & Plan (04/02/2024 4:57 PM EST): Patient would like to reinitiate his medications for his mood disorder and anxiety reports this event has caused him to have more anxiety and has not been able to sleep BHN referral is being done today Assessment & Plan (01/09/2024 3:55 PM EST): Counseling done I prescribed for patient hydroxyzine PRN Assessment & Plan (06/15/2022 12:19 PM EDT): Patient was reassured today I explain herpes simplex type 2 is not a life threat condition, it can be treated and patient can have a normal life We talked about non-medication interventions for anxiety Continue to follow up with therapist Asthma 06/19/2012 Sleep disorder 06/19/2012 Depressive disorder 06/19/2012 Assessment & Plan (05/20/2023 3:17 PM EDT): Counseling done I will start him on quetiapine, he reports he will start services with therapist Overweight 01/01/2008 Acne 06/26/2007 Encounters Date Type Department Care Team Description 04/02/2024 2:30 PM EST Office Visit [address] [address] Nikki Baker MD Depressive disorder (Primary Dx); Anxiety; Laceration of right hand without foreign body, initial encounter; Mood disorder ([facility]) 04/02/2024 Travel 04/02/2024 Orders Only [address] [address] Nikki Baker MD On pre-exposure prophylaxis for HIV (Primary Dx) 03/30/[address] [address] Nikki Baker MD ED follow up 03/29/[address] [address] Nikki Baker MD Appointment Request 03/29/[address] [address] Nikki Baker MD Appointment Request 03/29/[address] [address] Nikki Baker MD Nurse Triage 02/01/2024 Orders Only [facility] [place] [place] [address] Nikki Baker MD 01/31/2024 Telephone [facility] [place] [facility] [place] [address] Nikki Baker MD 01/09/2024 10:00 AM EST Office Visit [facility] [place] [place] [address] Nikki Baker MD Neuroma digital nerve (Primary Dx); Herpes simplex type 2 infection; Anxiety; Class 3 severe obesity due to excess calories with serious comorbidity and body mass index (BMI) of 40.0 to 44.9 in adult ([facility]) 01/09/2024 Travel from Last 3 Months Immunizations Name Administration Dates Next Due DTP 07/12/1997, 5,07/22/1993,11/22,1992 Hep B, Adolescent or Pediatric 07/22/1993,1992,1992 HepB-CpG 03/03/2023 04/01/2023 Hib ([facility]) 03/09/1994, 4,1992,09/23 IPV 07/12/1997, 4,1992,09/23 Influenza injectable quadriv alent preservative free 02/12/2020 Influenza, IIV3, injectable 12/05/2001 Influenza, Split (incl. shaheen fied surface antigen) 12/18/2012 MMR 07/12/1997,03/09/1994 Pneumococcal Polysaccharide PPSV23 08/12/2012 Td (adult), 5 Lf tetanus tox oid, preservative free, adsorbed 10/10/2011 Tdap 06/09/2020,10/12/2005 Varicella 01/01/2008,07/12/1997 Social History Tobacco Use Types Packs/Day Years [...] Orientation Bisexual 10/14/2022 11 :30 AM EDT Last Filed Vital Signs Vital Sign Reading Time Taken Comments Blood Pressure 132/77 04/02/2024 2:36 PM EST Pulse 77 04/02/2024 2:36 PM EST Temperature 36.6 ??C (97.8 ??F) 04/02/2024 2:36 PM ES T Respiratory Rate 18 04/02/2024 2:36 PM EST Oxygen Saturation 98% 09/02/2023 11:41 AM EDT Inhaled Oxygen Concentration - - Weight 133 kg (292 lb 9.6 oz) 04/02/2024 2:36 PM EST Height 180.3 cm (5' 11 ) 04/02/2024 2:36 PM EST Body Mass Index 40.81 04/02/2024 2:36 PM EST Plan of Treatment Upcoming Encounters Date Type Department Care Team (Late st Contact Info) Description 05/16/2024 10:00 AM EDT Office Visit [facility] [address] [place] [address] Nikki Baker MD [address] [place] [address] Health Maintenance Due Date Last Done Comments Alcohol/Substance Use Screening 2004 Family Planning (PISQ) 07/24/2007 Pneumococcal Vaccine: Pediatrics (0 to 5 Years) and At-Risk Patients (6 to 49) Years) (2 of 2 - PCV) 08/12/2013 08/12/2012 COVID-19 Vaccine (3 - season) 2023 10/30/2020, 10/09/2020 Influenza Vaccine (#1) 2023 , 12/18/2012, 12/05/2001 Depression Screening 09/01/2024 09/02/2023, 09/02/19 24 SDOH Screening 09/01/2024 09/02/2023 Tobacco Screening 04/02/2025 04/02/2024 Lipid Panel 07/19/2028 07/20/2023 DTaP/Tdap/Td Vaccines (9 - Td or Tdap) 06/09/2030 06/09/2020, 10/10/2011, 10/12/2005, Additional history exists Zoster Vaccines (1 of 2) 2042 RSV Patients and Patients Aged 60 years or older (1 - 1-dose 75+ series) 07/24/2067 HIB Vaccines Completed 03/09/1994, 0 02/1993, 1992, Additional history exists IPV Vaccines Completed 07/12/1997, 0 02/1993, 1992, Additional history exists Hepatitis B Vaccines Completed 03/03/2023, 07/22/1993, 1992, Additional history exists HIV Screening Completed 01/04/2024, 06/22, 03/03/2023, Additional history exists Hepatitis C Screening Completed 01/04/2024 , 07/20/2023, 03/03/2023, Additional history exists HPV Vaccines Aged Out No longer eligi ble based on patient's age to complete this topic Hepatitis A Vaccines Aged Out No long er eligible based on patient's age to complete this topic Meningococcal Vaccine Aged Out No ariana natalie eligible based on patient's age to complete this topic RSV under 20 months Aged Out No longe r eligible based on patient's age to complete this topic Rotavirus Vaccines Aged Out No longer eligible based on patient's age to complete this topic Procedures Procedure Name Priority Date/Time Associated Diagnosis Comments CREATININE, SERUM Routine 01/04/2024 11: 25 AM EST Screening for STD (sexually transmitted disease) SYPHILIS SCREEN Routine 01/04/2024 11:25 AM EST Screening for STD (sexually transmitted disease) HEPATITIS C AB W/REFL TO HCV RNA, QN, PCR Routine 01/04/2024 11:25 AM EST Screening for STD (sexually transmitted disease) HIV 1 RNA, QUANTITATIVE REAL TIME PCR Routine 01/04/2024 11:25 AM EST Screening for STD (sexually transmitted disease) LIPID PANEL, STANDARD Routine 07/20/2023 2:38 PM EDT Fatigue, unspecified type from Last 3 Months or Most Recently Relevant to Health Maintenance Results * Syphilis Screen (01/04/2024 11:25 AM EST) Syphilis Screen Nonreactive Nonreactive [facility] Blood 01/04/2024 11:2 5 AM EST 01/04/2024 1:27 PM EST us Nikki Bower MD LAB BLOOD ORDERABLES Final Result [facility] [address] [place] [phone] * Creatinine, Serum (01/04/2024 11:25 AM EST) Creatinine, Serum 0.88 0.5 - 1.4 mg/dL [facility] Estimated Glomerular Filt Rate >60 [facility] Comment:Chronic Kidney Disea se: Estimated GFR < 60 mL/min/1.38g0Tgliut Kidney Disease: Estimated GFR < 15 mL/min/1.73m2 Blood Venous blood specimen / Unknown 01/04/2024 11:25 AM EST 01/04/2024 1:27 PM EST Nikki Bower MD LAB BLOOD ORDERABLES Final Result Performing Organization Address [facility] Co de Phone Number [facility] [address] [place] [phone] * Hepatitis C Antibody with Reflex to HCV, RNA, Quantitative, Real-Time PCR (01/04/2024 11:25 AM EST) Hepatitis C Antibody Nonreactive Nonreactive [facility] Comment:Antibodies to HCV no t detected; does not exclude early acuteHCV infection. Blood Venous blood specimen / Unknown 01/04/2024 11:25 AM EST 01/04/2024 1:27 PM EST us Nikki Bower MD LAB BLOOD ORDERABLES Final Result Performing Organization Address [facility] de Phone Number [facility] [address] [place] [phone] * HIV-1 RNA, Quantitative, Real-Time PCR (01/04/2024 11:25 AM EST) HIV RNA PCR Qn Copies NOT DETECTED NOT DETECTED copies/mL [facility] HIV RNA PCR Qn Log Copies NOT DETECTED NOT DETECTED [facility] Comment:Result Units: Log co pies/mLThis test was performed using Real-Time Polymerase ChainReaction.Reportable Range: 20 copies/mL to 10,000,000 copies/mL(1.30 log copies/mL to 7.00 log copies/mL).THIS TEST WAS PERFORMED AT:[employer] [place] [phone] HANDY MD Blood Venous blood specimen / Unknown 01/04/2024 11:25 AM EST 01/04/2024 1:27 PM EST us Nikki Bower MD LAB BLOOD ORDERABLES Final Result Performing Organization Address [facility]/ZIP Co de Phone Number [facility] [address] [place] [phone] * (ABNORMAL) Lipid Panel, Standard (07/20/2023 2:38 PM EDT) Triglycerides 103 <150 mg/dL [facility] Comment:Desirable Triglyceri de: less than 150 mg/dLBorderline High Triglyceride 150-199 mg/dLHigh Triglyceride: 200-499 mg/dLVery High Triglyceride: greater than or equal to 5OO mg/dL Cholesterol 117 <200 mg/dL [facility] Comment:Desirable Cholestero l: less than 200 mg/dLBorderline High Cholesterol: 200-239 mg/dLHigh Cholesterol: greater than 239 mg/dL LDL Cholesterol Calculated 57 <100 mg/dL [facility] Comment:Desirable LDL: less than 100 mg/dLNear Optimal/Above Optimal LDL: 110- 129 mg/dLBorderline High LDL: 130-159 mg/dLHigh LDL: 160-189 mg/dLVery High LDL: greater than or equal to 190 mg/dL HDL Cholesterol 40(L) >40 mg/dL [facility] Comment:Desirable HDL: great er than 40 mg/dL Note: This HDL assay may give artificially low results in patients with liver disease. Blood Venous blood specimen / Unknown 07/20/2023 2:38 PM EDT 07/20/2023 4:41 PM EDT us Nikki Bower MD LAB BLOOD ORDERABLES Final Result Performing Organization Address City/[facility]/ZIP Co de Phone Number [facility] [address] [place] [phone] from Last 3 Months or Most Recently Relevant to Health Maintenance Additional Health Concerns Active Problems Noted Date Diagnosed Date Adjustment disorder with depressed mood 06/01/[address] [facility] C3 Care Teams Winding Inspector Relationship Specialty Start Date End Date Nikki Baker MD [address] [place] [address] PCP - General Family Medicine 07/21/18
--- OUTSIDE RECORDS SUMMARY | 2024-04-04 09:53 | XMS_ITS | Encounter Summary ---
Author Organization [employer] Address [address] [facility] 7[address] [place] [address] Care Team Providers Care Cardiovascular Specialist Name Role Phone Nikki Baker MD Primary Care Provide r Encounter Details Date Type Department Care Team ([facility] st Contact Info) Description 02/01/2024 Orders Only [facility] [address] [place], [place] [phone] Nikki Baker MD [address] [place] [phone] Social History Tobacco Use Types Packs/Day Years [...] Description 05/16/2024 10:00 AM EDT Office Visit [facility] [address] [place] [phone] Nikki Baker MD [address] [place] [phone] documented as of this encounter Visit Diagnoses Not on filedocumented in this encounter Additional Health Concerns Active Problems Noted Date Diagnosed Date Adjustment disorder with depressed mood 06/01/19 23 Assessment Noted Time PHQ-9 Depression Total Score: 0 09/02/19 24 11:42 AM EDT documented as of this encounter Care Teams Cardiovascular Specialist Relationship Specialty Start Date End Date Nikki Baker MD [address] [place] [phone] PCP - General Family Medicine 07/21/18 documented as of this encounter
--- OUTSIDE RECORDS SUMMARY | 2024-04-04 09:53 | XMS_ITS | Encounter Summary ---
Author Organization [employer] Address [address] [facility] 7t [place] [address] Care Team Providers Care Registration Representative Name Role Phone Nikki Baker MD Primary Care Provide r Reason for Visit * Reason Onset Date Comments Appointment Request 03/29/2024 Encounter Details Date Type Department Care Team (Late st Contact Info) Description 03/29/2024 Telephone [facility] [address] [place], [place] [phone] Nikki Baker MD [address] [place], [place] [phone] Appointment Request Social History Tobacco Use Types [...] encounter Miscellaneous Notes * Telephone Encounter - Yolis Childress MA - 03/29/2024 3:00 PM EST Tc pt to schedule requested OV appt with PCP. Pt didn't answer, LVM with call back number. documented in this encounter Plan of Treatment Upcoming Encounters Date Type Department Care Team (Late st Contact Info) Description 05/16/2024 10:00 AM EDT Office Visit [facility] [address] [place] [address] Nikki Baker MD [address] [place] [address] documented as of this encounter Visit Diagnoses Not on filedocumented in this encounter Additional Health Concerns Active Problems Noted Date Diagnosed Date Adjustment disorder with depressed mood 06/01/19 23 Assessment Noted Time PHQ-9 Depression Total Score: 0 09/02/19 24 11:42 AM EDT documented as of this encounter Care Teams Registration Representative Relationship Specialty Start Date End Date Nikki Baker MD [address] [place] [address] PCP - General Family Medicine 07/21/18 documented as of this encounter
--- OUTSIDE RECORDS SUMMARY | 2024-04-04 09:53 | XMS_ITS | Encounter Summary ---
Author Organization [employer] Address [address] [facility] 7t [place] [address] Care Team Providers Care Digital Cartographer Name Role Phone Nikki Baker MD Primary Care Provide r Reason for Visit * Reason Onset Date Comments Nurse Triage 03/29/2024 Encounter Details Date Type Department Care Team (Late st Contact Info) Description 03/29/2024 Telephone [facility] [address] [place], [place] [phone] Nikki Baker MD [address] [place], [place] [phone] Nurse Triage Social History Tobacco Use Types Packs/Day Years [...] encounter Miscellaneous Notes * Telephone Encounter - Jenny Guardado RN - 03/29/2024 10:12 AM EST called pt to triage, spoke to pt. pt seen ER at [facility] [place] on 03/27 for dog bite. pt given sutures in right hand, and treated with antibiotics prophylactically. pt will need wound recheck and suture removal and was given follow up appt Tuesday with green team provider at 11:30. pt wants appt only with PCP and was advised that his PCP has no available appt in the correct time frame. pt wants an appt with PCP and will not give information on why. pt denies need for urgent appt with PCP and will task to team [place] to schedule OV as appropriate. advised home care: continue and complete the antibiotics, pain medication as prescribed, elevate, keep covered as needed, and call back if worsening or any signs of infection. pt understands and agrees with plan. insurance verified. ER notes are already scanned into the chart and are ready for review. Protocol Used: Animal Bite (Adult) Care Advice Discussed: * Reasons To Call Back - Fever occurs - Wound begins to look infected (pus, redness, red streaks) - Doesn't heal within 14 days - You become worse * Telephone Encounter - Tiffany Tavares - 03/29/2024 9:16 AM EST Patient calling to report ED visit on : Date: 03/27/24 Hospital: [facility] Seen for: nerve damage due to dog bite Symptomatic Yes Pt stated he has stiches on right hand but it currently in severe pain. Contact pt at [phone] documented in this encounter Plan of Treatment Upcoming Encounters Date Type Department Care Team (Late st Contact Info) Description 05/16/2024 10:00 AM EDT Office Visit [facility] [address] [place] [address] Nikki Baker MD [address] [place] [phone] documented as of this encounter Visit Diagnoses Not on filedocumented in this encounter Additional Health Concerns Active Problems Noted Date Diagnosed Date Adjustment disorder with depressed mood 06/01/19 23 Assessment Noted Time PHQ-9 Depression Total Score: 0 09/02/19 24 11:42 AM EDT documented as of this encounter Care Teams Digital Cartographer Relationship Specialty Start Date End Date Nikki Baker MD [address] [place] [address] PCP - General Family Medicine 07/21/18 documented as of this encounter
== END 2024-04-04 09:45 | disposition home or self-care (01) ==
PROVIDERS: PCP Internal Medicine; Visit Provider Orthopaedic Surgery
DX: S61.451A Open bite of right hand, initial encounter (principal); W54.0XXA Bitten by dog, initial encounter; M25.641 Stiffness of right hand, not elsewhere classified
CPT/HCPCS: 99204

== ENCOUNTER → 2024-04-04 09:05 | Outpatient (BNV) | payer MEDICAID, SELFPAY | PROVIDERS: Visit Provider Radiology Diagnostic Radiology | DX: M18.11 Unilateral primary osteoarthritis of first carpometacarpal joint, right hand (principal) | CPT/HCPCS: 73130 ==

== ENCOUNTER 2024-04-04 09:31 | Outpatient (REF) | payer MEDICAID, SELFPAY ==
--- NOTE | ~2024-04-04 | XR_ITS ---
EXAMINATION: XR HAND 3 OR MORE VIEWS RIGHT HISTORY: M79.641 - Pain in right hand COMPARISON: Comparison is made with the prior examination dated 01/30/2014. FINDINGS: Three views of the right hand are submitted. Osseous mineralization is normal. There is no fracture or dislocation. There is mild narrowing of the 1st carpometacarpal joint. The soft tissues are unremarkable. XR/XR hand RT min 3V IMPRESSION: Mild narrowing of the 1st carpometacarpal joint. Otherwise unremarkable examination of the right hand. Electronically signed by: Clifton Yates MD 04/04/2024 09:16 AM EST
--- OUTSIDE RECORDS SUMMARY | 2024-04-05 10:01 | XMS_ITS | Encounter Summary ---
Author Organization [employer] Address [address] [place] [address] [address] [place] [address] Care Team Providers Care Maintenance Craftsman Name Role Phone Nikki Baker MD Primary Care Provide r Encounter Details Date Type Department Care Team (Late st Contact Info) Description 03/29/2022 [facility] [employer] [address] [place] [address] Nikki Baker MD [address] [place], [place] [phone] Social History Tobacco Use Types Packs/Day Years [...] Description 05/16/2024 10:00 AM EDT Office Visit [facility] [address] [place], [place] [phone] Nikki Baker MD [address] [place], [place] [phone] documented as of this encounter Visit Diagnoses Not on filedocumented in this encounter Care Teams Maintenance Craftsman Relationship Specialty Start Date End Date Nikki Baker MD [address] [place], [place] [phone] PCP - General Family Medicine 07/21/18 documented as of this encounter
--- OUTSIDE RECORDS SUMMARY | 2024-04-05 10:01 | XMS_ITS | Encounter Summary ---
Author Organization [employer] Address 75 [facility] 7t [place] [address] Care Team Providers Care Check Writer Salesperson Name Role Phone Nikki Baker MD Primary Care Provide r Reason for Referral * Consultation (Routine) - Authorized Specialty Diagnoses / Procedures Referred By Contac t Referred To Contact Behavioral Health Diagnoses Depressive disorder Anxiety Mood disorder (CMS/HCC) Nikki Baker MD [address] [place] [address] Phone: tel: fax: Referral ID Status Reason Start Date Expiration Date Visits Requested Visits Authorized [id number] Authorized Specialty Services Required 04/02/2024 04/02/2025 1 1 * Consultation (STAT) - Closed Specialty Diagnoses / Procedures Referred By Contac t Referred To Contact Hand Surgery Diagnoses Laceration of right hand without foreign body, initial encounter Nikki Baker MD [address] [place] [address] Phone: tel: fax: [facility] [address] [place] [address] Drive [address] [place], [place] Phone: tel: fax: Referral ID Status Reason Start Date Expiration Date V isits Requested Visits Authorized [id number] Closed Specialty Services Required 04/03/2024 04/02/2025 6 6 * Imaging (Routine) - Authorized Specialty Diagnoses / Procedures Referred By Contac t Referred To Contact Radiology Diagnoses Laceration of right hand without foreign body, initial encounter Procedures MR Hand w/o Contrast Right Nikki Baker MD [address] [place] [address] Phone: tel: fax: [facility] [address] [place] [address] Phone: tel: fax: Referral ID Status Reason Start Date Expiration Date V isits Requested Visits Authorized [id number] Authorized 04/02/2024 04/02/2025 1 1 Encounter Details Date Type Department Care Team (Late st Contact Info) Description 04/02/2024 2:30 PM EST Office Visit [facility] [address] [place] [phone] Nikki Baker MD [address] [place] [phone] Depressive disorder (Primary Dx); Anxiety; Laceration of [...] List Diagnosis Anxiety Asthma Eczema Mood disorder ([facility]/HCC) Adjustment disorder with depressed mood Acne Binocular vision disorder Sleep disorder Colitis Depression, major, recurrent, severe with psychosis ([facility]) Dizziness Epigastric pain Excess skin [...] index (BMI) of40.0 to 44.9 in adult ([facility]) Fibromyalgia Neuroma digital nerve Laceration [...] Description 05/16/2024 10:00 AM EDT Office Visit [facility] [address] [place] [address] Nikki Baker MD [address] [place] [address] Scheduled Orders Name Type Priority Associated Diagnoses [...] documented as of this encounter Care Teams Check Writer Salesperson Relationship Specialty Start Date End Date Nikki Baker MD [address] [place] [address] [phone] PCP - General Family Medicine 07/21/18 documented as of this encounter
--- OUTSIDE RECORDS SUMMARY | 2024-04-05 10:01 | XMS_ITS | Encounter Summary ---
Author Organization [employer] Address 75 [facility] 7t [place] [address] Care Team Providers Care Heel Emery Buffer Name Role Phone Nikki Baker MD Primary [...] Office Visit [facility] [address] [place] [address] Nikki Baker MD [address] [place] [address] documented as of this encounter Visit Diagnoses Not on filedocumented in this encounter Additional Health Concerns Active Problems Noted Date Diagnosed Date Adjustment disorder with depressed mood 06/01/19 23 Assessment Noted Time PHQ-9 Depression Total Score: 0 09/02/19 24 11:42 AM EDT documented as of this encounter Care Teams Heel Emery Buffer Relationship Specialty Start Date End Date Nikki Baker MD [address] [place] [phone] PCP - General Family Medicine 07/21/18 documented as of this encounter
--- OUTSIDE RECORDS SUMMARY | 2024-04-05 10:01 | XMS_ITS | Encounter Summary ---
Author Organization [employer] Address [address] [facility] 7t [place] [address] Care Team Providers Care Order Desk Caller Name Role Phone Nikki Baker MD Primary Care Provide r Reason for Visit * Reason Comments Med Refill Encounter Details Date Type Department Care Team ([facility] st Contact Info) Description 05/22/2023 Refill [facility] [address] [place], [place] [phone] Bettye Hsu DO [address] [place], [place] [phone] Screening for STD (sexually transmitted disease) Social [...] Description 05/16/2024 10:00 AM EDT Office Visit [facility] [address] [place] [address] Nikki Baker MD [address] [place] [address] documented as of this encounter Visit Diagnoses Diagnosis Screening for STD (sexually transmitted disease) documented in this encounter Additional Health Concerns Active Problems Noted Date Diagnosed Date Adjustment disorder with depressed mood 06/01/19 23 Assessment Noted Time PHQ-9 Depression Total Score: 21 023 1:27 PM EDT documented as of this encounter Care Teams Order Desk Caller Relationship Specialty Start Date End Date Nikki Baker MD [address] [place] [address] PCP - General Family Medicine 07/21/18 documented as of this encounter
--- OUTSIDE RECORDS SUMMARY | 2024-04-05 10:01 | XMS_ITS | Encounter Summary ---
Author Organization [employer] Address 75 [facility] 7t [place] [address] Care Team Providers Care Coal Inspector Name Role Phone Nikki Baker MD Primary Care Provide r Encounter Details Date Type Department Care Team ([facility] st Contact Info) Description 04/02/2024 Orders Only [facility] [address] [place], [place] [phone] Nikki Baker MD [address] [place], [place] [phone] On pre-exposure prophylaxis for HIV (Primary Dx) [...] Office Visit [facility] [address] [place] [address] Nikki Baker MD [address] [place] [address] documented as of this encounter Visit Diagnoses Diagnosis On pre-exposure prophylaxis for HIV- Primary documented in this encounter Additional Health Concerns Active Problems Noted Date Diagnosed Date Adjustment disorder with depressed mood 06/01/19 23 Assessment Noted Time PHQ-9 Depression Total Score: 0 09/02/19 24 11:42 AM EDT documented as of this encounter Care Teams Coal Inspector Relationship Specialty Start Date End Date Nikki Baker MD [address] [place] [address] PCP - General Family Medicine 07/21/18 documented as of this encounter
--- OUTSIDE RECORDS SUMMARY | 2024-04-05 10:01 | XMS_ITS | Clinical Summary ---
Author Organization [employer] Address 75 [facility] 7t [place] [address] Care Team Providers Care Java Oracle Developer Name Role Phone Nikki Baker MD [...] Description 04/02/2024 2:30 PM EST Office Visit [address] [address] Nikki Baker MD Depressive disorder (Primary Dx); Anxiety; Laceration of right hand without foreign body, initial encounter; Mood disorder ([facility]) 04/02/2024 Travel 04/02/2024 Orders Only [address] [address] Nikki Baker MD On pre-exposure prophylaxis for HIV (Primary Dx) 03/30/[address] [address] Nikki Baker MD ED follow up 03/29/[address] [address] Nikki Baker MD Appointment Request 03/29/[address] [address] Nikki Baker MD Appointment Request 03/29/[address] [address] Nikki Baker MD Nurse Triage 02/01/2024 Orders Only [facility] [place] [address] Nikki Baker MD 01/31/2024 Telephone [facility] [place] [address] Nikki Baker MD 01/09/2024 10:00 AM EST Office Visit [facility] [place] [address] Nikki Baker MD Neuroma digital nerve (Primary Dx); Herpes simplex type 2 infection; Anxiety; Class 3 severe obesity due to excess calories with serious comorbidity and body mass index (BMI) of 40.0 to 44.9 in adult ([facility]) 01/09/2024 Travel from Last 3 Months Immunizations Name Administration Dates Next Due DTP 07/12/1997, 5,07/22/1993,11/22,1992 Hep B, Adolescent or Pediatric 07/22/1993,1992,1992 HepB-CpG 03/03/2023 04/01/2023 Hib ([facility]) 03/09/1994, 4,1992,09/23 IPV 07/12/1997, 4,1992,09/23 Influenza injectable [...] Description 05/16/2024 10:00 AM EDT Office Visit [facility] [address] [place] [address] Nikki Baker MD [address] [place] [address] Health Maintenance Due Date Last Done Comments [...] 11:25 AM EST) Syphilis Screen Nonreactive Nonreactive [facility] Blood 01/04/2024 11:2 5 AM EST 01/04/2024 1:27 PM EST us Nikki Bower MD LAB BLOOD ORDERABLES Final Result [facility] [address] [place] [phone] * Creatinine, Serum (01/04/2024 11:25 AM EST) Creatinine, Serum 0.88 0.5 - 1.4 mg/dL [facility] Estimated Glomerular Filt Rate >60 [facility] Comment:Chronic Kidney Disea se: Estimated GFR < 60 mL/min/1.29a8Mulguw Kidney Disease: Estimated GFR < 15 mL/min/1.73m2 Blood Venous blood specimen / Unknown 01/04/2024 11:25 AM EST 01/04/2024 1:27 PM EST Nikki Bower MD LAB BLOOD ORDERABLES Final Result Performing Organization Address [facility] Co de Phone Number [facility] [address] [place] [phone] * Hepatitis C Antibody with Reflex to HCV, RNA, Quantitative, Real-Time PCR (01/04/2024 11:25 AM EST) Hepatitis C Antibody Nonreactive Nonreactive [facility] Comment:Antibodies to HCV no t detected; does not exclude early acuteHCV infection. Blood Venous blood specimen / Unknown 01/04/2024 11:25 AM EST 01/04/2024 1:27 PM EST us Nikki Bower MD LAB BLOOD ORDERABLES Final Result Performing Organization Address [facility] de Phone Number [facility] [address] [place] [phone] * HIV-1 RNA, Quantitative, Real-Time PCR (01/04/2024 11:25 AM EST) HIV RNA PCR Qn Copies NOT DETECTED NOT DETECTED copies/mL [facility] HIV RNA PCR Qn Log Copies NOT DETECTED NOT DETECTED [facility] Comment:Result Units: Log co pies/mLThis test was performed using Real-Time Polymerase ChainReaction.Reportable Range: 20 copies/mL to 10,000,000 copies/mL(1.30 log copies/mL to 7.00 log copies/mL).THIS TEST WAS PERFORMED AT:[facility] [place] [phone] HANDY MD Blood Venous blood specimen / Unknown 01/04/2024 11:25 AM EST 01/04/2024 1:27 PM EST us Nikki Bower MD LAB BLOOD ORDERABLES Final Result Performing Organization Address [facility]/ZIP Co de Phone Number [facility] [address] [place] [phone] * (ABNORMAL) Lipid Panel, Standard (07/20/2023 2:38 PM EDT) Triglycerides 103 <150 mg/dL [facility] Comment:Desirable Triglyceri de: less than 150 mg/dLBorderline High Triglyceride 150-199 mg/dLHigh Triglyceride: 200-499 mg/dLVery High Triglyceride: greater than or equal to 5OO mg/dL Cholesterol 117 <200 mg/dL [facility] Comment:Desirable Cholestero l: less than 200 mg/dLBorderline High Cholesterol: 200-239 mg/dLHigh Cholesterol: greater than 239 mg/dL LDL Cholesterol Calculated 57 <100 mg/dL [facility] Comment:Desirable LDL: less than 100 mg/dLNear Optimal/Above Optimal LDL: 110- 129 mg/dLBorderline High LDL: 130-159 mg/dLHigh LDL: 160-189 mg/dLVery High LDL: greater than or equal to 190 mg/dL HDL Cholesterol 40(L) >40 mg/dL [facility] Comment:Desirable HDL: great er than 40 mg/dL Note: This HDL assay may give artificially low results in patients with liver disease. Blood Venous blood specimen / Unknown 07/20/2023 2:38 PM EDT 07/20/2023 4:41 PM EDT us Nikki Bower MD LAB BLOOD ORDERABLES Final Result Performing Organization Address City/[facility]/ZIP Co de Phone Number [facility] [address] [place] [phone] from Last 3 Months or Most Recently Relevant to Health Maintenance Additional Health Concerns Active Problems Noted Date Diagnosed Date Adjustment disorder with depressed mood 06/01/19 23 Insurance [facility] C3 Care Teams Java Oracle Developer Relationship Specialty Start Date End Date Nikki Baker MD [address] [place] [address] PCP - General Family Medicine 07/21/18
--- OUTSIDE RECORDS SUMMARY | 2024-04-05 10:01 | XMS_ITS | Clinical Summary ---
Author Organization 175 [facility] Address [address] [place] [address] Phone Care Team Providers Care Hotel Baggage Handler Name Role Phone Nikki Baker MD Primary Care Provide r Social History Tobacco Use Types Packs/Day Years Used Date Smoking Tobacco: Never Assessed Sex and Gender Information Value Date Recorded Sex Assigned at Not on file Legal Sex Male 1:46 AM EST Gender Identity Not on file Sexual Orientation Not on file Plan of Treatment Upcoming Encounters Date Type Department Care Team ([facility] st Contact Info) Description 04/10/2024 8:30 AM EST Office Visit [facility]ariat[facility] - [place] 175 [facility] [address] [place] [address] Urvashi Davis MD [address] [phone] Health Maintenance Due Date Last [...] topic Insurance MEDICAID - [place] Care Teams Hotel Baggage Handler Relationship Specialty Start Date End Date Nikki Baker MD 230 [facility] 1 [place] [phone] PCP - General Internal Medicine 01/10/24
--- OUTSIDE RECORDS SUMMARY | 2024-04-05 10:02 | XMS_ITS | Encounter Summary ---
Author Organization [employer] Address 75 [facility] 7t [place] [address] Care Team Providers Care Tafe Registrar Name Role Phone Nikki Baker MD Primary Care Provide r Reason for Visit * Reason Onset Date Comments ED follow up 03/30/2024 Encounter Details Date Type Department Care Team (Late st Contact Info) Description 03/30/2024 Telephone [facility] [address] [place], [place] [phone] Nikki Baker MD 230 [place], [place] [phone] ED follow up Social History Tobacco Use [...] 1:46 PM EST Received call from CRS Manager Of Allied Health Services requesting ed follow up apt for pt as he reported visiting ed fordog attack. Informed crs fd I would forward message to team rns. documented in this encounter Plan of Treatment Upcoming Encounters Date Type Department Care Team (Late st Contact Info) Description 05/16/2024 10:00 AM EDT Office Visit [facility] [address] [place] [address] Nikki Baker MD [address] [place], [place] [phone] documented as of this encounter Visit Diagnoses Not on filedocumented in this encounter Additional Health Concerns Active Problems Noted Date Diagnosed Date Adjustment disorder with depressed mood 06/01/19 23 Assessment Noted Time PHQ-9 Depression Total Score: 0 09/02/19 24 11:42 AM EDT documented as of this encounter Care Teams Tafe Registrar Relationship Specialty Start Date End Date Nikki Baker MD [address] [place] [address] PCP - General Family Medicine 07/21/18 documented as of this encounter
--- OUTSIDE RECORDS SUMMARY | 2024-04-05 10:02 | XMS_ITS | Encounter Summary ---
Author Organization [employer] Address 75 [facility] 7t [place] [address] Care Team Providers Care Structural Steel Worker Name Role Phone Nikki Baker MD Primary Care Provide r Reason for Visit * Reason Onset Date Comments Appointment Request 03/29/2024 Encounter Details Date Type Department Care Team (Late st Contact Info) Description 03/29/2024 Telephone [facility] 230 [place], [place] [phone] Nikki Baker MD [address] [place], [place] [phone] Appointment Request Social History Tobacco Use Types [...] PCP to follow up on chronic conditions. Glaucoma Specialist advise pt he is on a recall for June. Pt scheduled for ER follow up/Sick visit on 04/02/24 with Lilli but would still like to schedule a follow up with PCP. Glaucoma Specialist advise will send a message to medical information specialist. Contact pt at [phone] documented in this encounter Plan of Treatment Upcoming Encounters Date Type Department Care Team (Late st Contact Info) Description 05/16/2024 10:00 AM EDT Office Visit [facility] [address] [place] [address] Nikki Baker MD [address] [place] [address] documented as of this encounter Visit Diagnoses Not on filedocumented in this encounter Additional Health Concerns Active Problems Noted Date Diagnosed Date Adjustment disorder with depressed mood 06/01/19 23 Assessment Noted Time PHQ-9 Depression Total Score: 0 09/02/19 24 11:42 AM EDT documented as of this encounter Care Teams Structural Steel Worker Relationship Specialty Start Date End Date Nikki Baker MD [address] [place] [address] PCP - General Family Medicine 07/21/18 documented as of this encounter
--- OUTSIDE RECORDS SUMMARY | 2024-04-05 10:02 | XMS_ITS | Encounter Summary ---
Author Organization [employer] Address 75 [facility] 7t [place] [address] Care Team Providers Care Auto Rebuilder Name Role Phone Nikki Baker MD Primary Care Provide r Reason for Visit * Reason Onset Date Comments Appointment Request 03/29/2024 Encounter Details Date Type Department Care Team (Late st Contact Info) Description 03/29/2024 Telephone [facility] 230 [place], [place] [phone] Nikki Baker MD [address] [place], [place] [phone] Appointment Request Social History Tobacco Use Types [...] Description 05/16/2024 10:00 AM EDT Office Visit [facility] [address] [place] [address] Nikki Baker MD [address] [place] [address] documented as of this encounter Visit Diagnoses Not on filedocumented in this encounter Additional Health Concerns Active Problems Noted Date Diagnosed Date Adjustment disorder with depressed mood 06/01/19 23 Assessment Noted Time PHQ-9 Depression Total Score: 0 09/02/19 24 11:42 AM EDT documented as of this encounter Care Teams Auto Rebuilder Relationship Specialty Start Date End Date Nikki Baker MD [address] [place] [address] PCP - General Family Medicine 07/21/18 documented as of this encounter
--- OUTSIDE RECORDS SUMMARY | 2024-04-05 10:02 | XMS_ITS | Encounter Summary ---
Author Organization [employer] Address 75 [facility] 7t [place] [address] Care Team Providers Care Poultry Inseminator Name Role Phone Nikki Baker MD Primary Care Provide r Reason for Visit * Reason Onset Date Comments Nurse Triage 03/29/2024 Encounter Details Date Type Department Care Team (Late st Contact Info) Description 03/29/2024 Telephone [facility] 230 [place], [place] [phone] Nikki Baker MD 230 [place], [place] [phone] Nurse Triage Social History Tobacco Use Types [...] spoke to pt. pt seen ER at [facility] on 03/27 for dog bite. pt given [...] ED visit on : Date: 03/27/24 Hospital: [facility] Seen for: nerve damage due to dog bite Symptomatic Yes Pt stated he has stiches on right hand but it currently in severe pain. Contact pt at [phone] documented in this encounter Plan of Treatment Upcoming Encounters Date Type Department Care Team (Late st Contact Info) Description 05/16/2024 10:00 AM EDT Office Visit [facility] [address] [place] [address] Nikki Baker MD [address] [place] [address] documented as of this encounter Visit Diagnoses Not on filedocumented in this encounter Additional Health Concerns Active Problems Noted Date Diagnosed Date Adjustment disorder with depressed mood 06/01/19 23 Assessment Noted Time PHQ-9 Depression Total Score: 0 09/02/19 24 11:42 AM EDT documented as of this encounter Care Teams Poultry Inseminator Relationship Specialty Start Date End Date Nikki Baker MD [address] [place] [address] PCP - General Family Medicine 07/21/18 documented as of this encounter
--- OUTSIDE RECORDS SUMMARY | 2024-04-05 10:02 | XMS_ITS | Encounter Summary ---
Author Organization [email or web address] Address [address] [facility] 7t [place] [address] Care Team Providers Care Clinical Phlebotomist Name Role Phone Nikki Baker MD Primary Care Provide r Reason for Visit * Reason Onset Date Comments Referral 09/02/2023 Encounter Details Date Type Department Care Team (Late st Contact Info) Description 09/02/2023 Telephone [facility] [address] [place], [place] [phone] Nikki Baker MD [address] [place], [place] [phone] Referral Social History Tobacco Use Types Packs/Day [...] from pt requesting to be referred to [facility] - Weight Management - [address], [place] [address] , states [facility] is no longer accepting new patients. Please contact at [phone] * Telephone Encounter - Marie Trevizo RN - 09/02/2023 12:49 PM EDT Bariatric surgery referral placed today, pt. Requesting location in [facility] * Telephone Encounter - Zari Perez - 09/02/2023 12:39 PM EDT Tc from pt calling requesting a different location on bariatric referral, stated [place] [facility] and he will like to be seen on [place]. documented in this encounter Plan of Treatment Upcoming Encounters Date Type Department Care Team (Late st Contact Info) Description 05/16/2024 10:00 AM EDT Office Visit [facility] [address] [place] [address] Nikki Baker MD [address] [place], [place] [phone] documented as of this encounter Visit Diagnoses Not on filedocumented in this encounter Additional Health Concerns Active Problems Noted Date Diagnosed Date Adjustment disorder with depressed mood 06/01/19 23 Assessment Noted Time PHQ-9 Depression Total Score: 0 09/02/19 24 11:42 AM EDT documented as of this encounter Care Teams Clinical Phlebotomist Relationship Specialty Start Date End Date Nikki Baker MD [address] [place] [address] PCP - General Family Medicine 07/21/18 documented as of this encounter
--- OUTSIDE RECORDS SUMMARY | 2024-04-05 10:02 | XMS_ITS | Encounter Summary ---
Author Organization [employer] Address 75 [facility] 7t [place] [address] Care Team Providers Care Hairspring Truer Name Role Phone Nikki Baker MD Primary Care Provide r Encounter Details Date Type Department Care Team ([facility] st Contact Info) Description 02/01/2024 Orders Only [facility] 230 [place], [place] [phone] Nikki Baker MD 230 [place] [address] Social History Tobacco Use Types Packs/Day Years [...] Description 05/16/2024 10:00 AM EDT Office Visit [facility] [address] [place] [address] Nikki Baker MD [address] [place] [address] documented as of this encounter Visit Diagnoses Not on filedocumented in this encounter Additional Health Concerns Active Problems Noted Date Diagnosed Date Adjustment disorder with depressed mood 06/01/19 23 Assessment Noted Time PHQ-9 Depression Total Score: 0 09/02/19 24 11:42 AM EDT documented as of this encounter Care Teams Hairspring Truer Relationship Specialty Start Date End Date Nikki Baker MD [address] [place] [address] PCP - General Family Medicine 07/21/18 documented as of this encounter
== END 2024-04-04 09:32 | disposition home or self-care (01) ==
LOC: HO.HOSX 09:31
PROVIDERS: Visit Provider Orthopaedic Surgery
DX: M79.641 Pain in right hand (principal); W54.0XXA Bitten by dog, initial encounter; S61.451A Open bite of right hand, initial encounter
CPT/HCPCS: 73130; 99202

== ENCOUNTER → 2024-04-14 19:10 | Outpatient (BNV) | payer MEDICAID, SELFPAY | PROVIDERS: PCP Internal Medicine; Visit Provider Radiology Diagnostic Radiology | DX: M79.89 Other specified soft tissue disorders (principal); S61.451D Open bite of right hand, subsequent encounter; W54.0XXD Bitten by dog, subsequent encounter | CPT/HCPCS: 73218 ==

== ENCOUNTER 2024-04-14 19:17 | Outpatient (REF) | payer MEDICAID, SELFPAY ==
--- NOTE | ~2024-04-14 | MR_ITS ---
CLINICAL HISTORY: s p dog bite laceration Exam: MRI of the right hand without intravenous contrast. Comparison: Radiographs April 04, 2024. Findings: Overall bony alignment is anatomic. No acute fracture, bone marrow edema, or periosteal reaction. No bony destructive changes. Moderate degenerative change of the 1st carpometacarpal joint mild degenerative change of the STT joint and 1st metacarpophalangeal joint. Scapholunate ligament and triangular fibrocartilage are intact. Edema along the volar aspect of the hand superficial to the flexor tendons to the long and ring fingers. There is mild peritendinous edema. No tendon tear is seen. No discrete fluid collection seen to suggest abscess or hematoma. Extensor tendons are intact. No mass or edema seen within the carpal tunnel. Signal intensity of the median nerve and ulnar nerve is within normal limits. Impression: 1. No fracture or MRI findings of osteomyelitis. 2. Induration within the volar soft tissues involving the long and ring fingers, likely related to the reported dog bite. No discrete fluid collection to suggest abscess or hematoma. This document has been electronically signed by: Ernesto Rodas MD on 04/17/2024 09:57:20
--- OUTSIDE RECORDS SUMMARY | 2024-04-14 19:22 | XMS_ITS | Clinical Summary ---
Author Organization [facility] Address [address] [place] [address] Phone Care Team Providers Care Field Evidence Technician Name Role Phone Nikki Baker MD Primary Care Provide r Social History Tobacco Use Types Packs/Day Years Used Date Smoking Tobacco: Never Assessed Sex and Gender Information Value Date Recorded Sex Assigned at Not on file Legal Sex Male 1:46 AM EST Gender Identity Not on file Sexual Orientation Not on file Plan of Treatment Upcoming Encounters Date Type Department Care Team ([facility] st Contact Info) Description 04/27/2024 9:30 AM EST Office Visit Bariatric Surgery - [place] [facility] [address] [place] [address] Urvashi Davis MD [address] [address] Health Maintenance Due Date Last [...] topic Insurance MEDICAID - [place] Care Teams Field Evidence Technician Relationship Specialty Start Date End Date Nikki Baker MD 230 [facility] 1 [place] [address] PCP - General Internal Medicine 01/10/24
--- OUTSIDE RECORDS SUMMARY | 2024-04-14 19:22 | XMS_ITS | Encounter Summary ---
Author Organization [employer] Address 75 [facility] 7t [place] [address] Care Team Providers Care Balance Wheel Arm Burnisher Name Role Phone Nikki Baker MD Primary Care Provide r Encounter Details Date Type Department Care Team (Late st Contact Info) Description 04/12/2024 Orders Only [facility] [address] [place] [address] Екатерина Berg RN Social History Tobacco Use Types Packs/Day Years [...] Upcoming Encounters Date Type Department Care Team ([facility] st Contact Info) Description 05/16/2024 10:00 AM EDT Office Visit [facility] [address] [place] [address] Nikki Baker MD 230 [place] [address] documented as of this encounter Procedures Procedure Name Priority Date/Time Associated Diagnosis Comments CHLAMYDIA/GONORRHEA THROAT SWAB (MD DPH) Routine 04/02/2024 SYPHILIS ABS ([place] DP) Routine 04/02/2024 HEPATITIS C ANTIBODY (MD DPH) Routine 04/02/2024 HIV ANTIBODY/ANTIGEN (MD DP) Routine 04/02/2024 documented in this encounter Results * Chlamydia/Gonorrhea Throat Swab ([place] DPH) (04/02/2024) Chlamydia Throat Swab Negative Gonorrhea Throat Swab Negative Swab 04/02/2024 us Historical Provider LAB MICROBIOLOGY - GENERA L ORDERABLES Final Result * HIV Ab/Ag ([place] DPH) (04/02/2024) HIV Ag/Ab Nonreactive Blood 04/02/2024 [facility] Provider LAB BLOOD ORDERABLES Nona l Result * Hepatitis C Antibody ([place] DP) (04/02/2024) Hepatitis C Ab Nonreactive Blood 04/02/2024 [facility] Provider LAB BLOOD ORDERABLES Nona l Result * Syphilis Antibodies (DPH) (04/02/2024) Syphilis Abs Nonreactive Borderline, Nonreactive, Weakly Reactive, Inconclusive, Specimen unsatisfactory for evaluation Blood Venous blood specimen / Unknown 04/02/2024 Result [facility] Provider LAB BLOOD ORDERABLES Nona l Result documented in this encounter Visit Diagnoses Not on filedocumented in this encounter Additional Health Concerns Active Problems Noted Date Diagnosed Date Adjustment disorder with depressed mood 06/01/19 23 Assessment Noted Time PHQ-9 Depression Total Score: 0 09/02/19 24 11:42 AM EDT documented as of this encounter Care Teams Balance Wheel Arm Burnisher Relationship Specialty Start Date End Date Nikki Baker MD [address] [place] [phone] PCP - General Family Medicine 07/21/18 documented as of this encounter
--- OUTSIDE RECORDS SUMMARY | 2024-04-14 19:22 | XMS_ITS | Encounter Summary ---
Author Organization [employer] Address 75 [facility] 7t [place] [address] Care Team Providers Care Toolroom Keeper Name Role Phone Nikki Baker MD Primary Care Provide r Reason for Visit * Reason Onset Date Comments MRI HAND ORDER 04/11/2024 Encounter Details Date Type Department Care Team ([facility] st Contact Info) Description 04/11/2024 Telephone [employer] 230 [place] [address] Nikki Baker MD 230 [place] [address] MRI HAND ORDER Social History Tobacco Use Types Packs/Day Years [...] encounter Miscellaneous Notes * Telephone Encounter - Vandana Alejandro - 04/11/2024 11:08 AM EST Incoming fax from [facility], Please indicate what Provider is looking for? documented in this encounter Plan of Treatment Upcoming Encounters Date Type Department Care Team (Late st Contact Info) Description 05/16/2024 10:00 AM EDT Office Visit [facility] 230 [place] [address] Nikki Baker MD 230 [place] [address] documented as of this encounter Visit Diagnoses Not on filedocumented in this encounter Additional Health Concerns Active Problems Noted Date Diagnosed Date Adjustment disorder with depressed mood 06/01/19 23 Assessment Noted Time PHQ-9 Depression Total Score: 0 09/02/19 24 11:42 AM EDT documented as of this encounter Care Teams Toolroom Keeper Relationship Specialty Start Date End Date Nikki Baker MD 230 [place] [address] PCP - General Family Medicine 07/21/18 documented as of this encounter
--- OUTSIDE RECORDS SUMMARY | 2024-04-14 19:22 | XMS_ITS | Encounter Summary ---
Author Organization [employer] Address [address] [place] [address] 7 [place] [address] Care Team Providers Care Cost And Risk Analysis Manager Name Role Phone Nikki Baker MD Primary Care Provide r Encounter Details Date Type Department Care Team (Late st Contact Info) Description 03/29/2022 [facility] [employer] 230 [place] [address] Nikki Baker MD 230 [place], [place] [phone] Social History Tobacco Use Types Packs/Day Years [...] Description 05/16/2024 10:00 AM EDT Office Visit [facility] 230 [place], [place] [phone] Nikki Baker MD 230 [place], [place] [phone] documented as of this encounter Visit Diagnoses Not on filedocumented in this encounter Care Teams Cost And Risk Analysis Manager Relationship Specialty Start Date End Date Nikki Baker MD 230 [place], [place] [phone] PCP - General Family Medicine 07/21/18 documented as of this encounter
--- OUTSIDE RECORDS SUMMARY | 2024-04-14 19:23 | XMS_ITS | Encounter Summary ---
Author Organization [employer] Address 75 [facility] 7t [place] [address] Care Team Providers Care Sap Technical Developer Name Role Phone Nikki Baker MD Primary Care Provide r Reason for Visit * Reason Onset Date Comments Nurse Triage 03/29/2024 Encounter Details Date Type Department Care Team (Late st Contact Info) Description 03/29/2024 Telephone [facility] [address] [place], [place] [phone] Nikki Baker MD [address] [place], [place] [phone] Nurse Triage Social History Tobacco Use Types [...] to pt. pt seen ER at [facility] on 03/27 for dog bite. [...] ED visit on : Date: 03/27/24 Hospital: [facility] Seen for: nerve damage due to dog bite Symptomatic Yes Pt stated he has stiches on right hand but it currently in severe pain. Contact pt at [phone] documented in this encounter Plan of Treatment Upcoming Encounters Date Type Department Care Team (Late st Contact Info) Description 05/16/2024 10:00 AM EDT Office Visit [facility] [address] [place] [address] Nikki Baker MD [address] [place] [address] documented as of this encounter Visit Diagnoses Not on filedocumented in this encounter Additional Health Concerns Active Problems Noted Date Diagnosed Date Adjustment disorder with depressed mood 06/01/19 23 Assessment Noted Time PHQ-9 Depression Total Score: 0 09/02/19 24 11:42 AM EDT documented as of this encounter Care Teams Sap Technical Developer Relationship Specialty Start Date End Date Nikki Baker MD [address] [place] [address] PCP - General Family Medicine 07/21/18 documented as of this encounter
--- OUTSIDE RECORDS SUMMARY | 2024-04-14 19:23 | XMS_ITS | Encounter Summary ---
Author Organization [employer] Address 75 [facility] 7t [place] [address] Care Team Providers Care Testing Director Name Role Phone Nikki Baker MD Primary [...] 05/16/2024 10:00 AM EDT Office Visit [facility] [address] [place] [address] Nikki Baker MD 230 [place] [address] documented as of this encounter Visit Diagnoses Not on filedocumented in this encounter Additional Health Concerns Active Problems Noted Date Diagnosed Date Adjustment disorder with depressed mood 06/01/19 23 Assessment Noted Time PHQ-9 Depression Total Score: 0 09/02/19 24 11:42 AM EDT documented as of this encounter Care Teams Testing Director Relationship Specialty Start Date End Date Nikki Baker MD [address] [place] [id number] PCP - General Family Medicine 07/21/18 documented as of this encounter
--- OUTSIDE RECORDS SUMMARY | 2024-04-14 19:23 | XMS_ITS | Encounter Summary ---
Author Organization [employer] Address 75 [facility] 7t [place] [address] Care Team Providers Care Management Development Specialist Name Role Phone Nikki Baker MD Primary Care Provide r Reason for Referral * Consultation (Routine) - Closed Specialty Diagnoses / Procedures Referred By Contac t Referred To Contact Behavioral Health Diagnoses Depressive disorder Anxiety Mood disorder (CMS/HCC) Nikki Baker MD [address] [place] [address] Phone: tel: fax: Referral ID Status Reason Start Date Expiration Date V isits Requested Visits Authorized [id number] Closed Specialty Services Required 04/02/2024 04/02/2025 1 1 * Consultation (STAT) - Closed Specialty Diagnoses / Procedures Referred By Contac t Referred To Contact Hand Surgery Diagnoses Laceration of right hand without foreign body, initial encounter Nikki Baker MD [address] [place] [address] Phone: tel: fax: [facility] [address] [place] [address] Drive [address] [place], [place] Phone: tel: fax: Referral ID Status Reason Start Date Expiration Date V isits Requested Visits Authorized [id number] Closed Specialty Services Required 04/03/2024 04/02/2025 6 6 * Imaging (Routine) - Authorized Specialty Diagnoses / Procedures Referred By Contpaolo t Referred To Contact Radiology Diagnoses Laceration of right hand without foreign body, initial encounter Procedures MR Hand w/o Contrast Right Nikki aBker MD 230 [place] [address] Phone: tel: fax: [address] Phone: tel: fax: Referral ID Status Reason Start Date Expiration Date V isits Requested Visits Authorized [id number] Authorized 04/02/2024 04/02/2025 1 1 Encounter Details Date Type Department Care Team (Late st Contact Info) Description 04/02/2024 2:30 PM EST Office Visit [facility] 230 [place] [address] Nikki Baker MD 230 [place] [address] Depressive disorder (Primary Dx); Anxiety; Laceration of [...] List Diagnosis Anxiety Asthma Eczema Mood disorder ([facility]) Adjustment disorder with depressed mood Acne Binocular vision disorder Sleep disorder Colitis Depression, major, recurrent, severe with psychosis ([facility]) Dizziness Epigastric pain Excess skin of breast [...] index (BMI) of40.0 to 44.9 in adult ([facility]) Fibromyalgia Neuroma digital nerve Laceration of left [...] Gene CECI Merchant 100 mg at 02/18/22 0137 Problem List Items Addressed This Visit Depressive [...] 10:00 AM EDT Office Visit [facility] 230 [place] [address] Nikki Baker MD 230 [place] [address] Scheduled Orders Name Type Priority Associated Diagnoses [...] documented as of this encounter Care Teams Management Development Specialist Relationship Specialty Start Date End Date Nikki Baker MD [address] [place] [phone] PCP - General Family Medicine 07/21/18 documented as of this encounter
--- OUTSIDE RECORDS SUMMARY | 2024-04-14 19:23 | XMS_ITS | Encounter Summary ---
Author Organization [employer] Address 75 [facility] 7t [place] [address] Care Team Providers Care High School Coach Name Role Phone Nikki Baker MD Primary Care Provide r Reason for Visit * Reason Comments Med Refill Encounter Details Date Type Department Care Team ([facility] st Contact Info) Description 05/22/2023 Refill [facility] [address] [place], [place] [phone] Bettye Hsu DO 230 [place], [place] [phone] Screening for STD (sexually transmitted disease) Social [...] Description 05/16/2024 10:00 AM EDT Office Visit [facility] [address] [place] [address] Nikki Baker MD [address] [place] [address] documented as of this encounter Visit Diagnoses Diagnosis Screening for STD (sexually transmitted disease) documented in this encounter Additional Health Concerns Active Problems Noted Date Diagnosed Date Adjustment disorder with depressed mood 06/01/19 23 Assessment Noted Time PHQ-9 Depression Total Score: 21 023 1:27 PM EDT documented as of this encounter Care Teams High School Coach Relationship Specialty Start Date End Date Nikki Baker MD [address] [place] [address] PCP - General Family Medicine 07/21/18 documented as of this encounter
--- OUTSIDE RECORDS SUMMARY | 2024-04-14 19:23 | XMS_ITS | Encounter Summary ---
Author Organization [employer] Address 75 [facility] 7t [place] [address] Care Team Providers Care Structural Shop Helper Name Role Phone Nikki Baker MD Primary Care Provide r Reason for Visit * Reason Onset Date Comments Appointment Request 03/29/2024 Encounter Details Date Type Department Care Team (Late st Contact Info) Description 03/29/2024 Telephone [facility] 230 [place], [place] [phone] Nikki Baker MD [address] [place], [place] [phone] Appointment Request Social History Tobacco Use Types [...] 05/16/2024 10:00 AM EDT Office Visit [facility] 230 [place] [address] Nikki Baker MD 230 [place] [address] documented as of this encounter Visit Diagnoses Not on filedocumented in this encounter Additional Health Concerns Active Problems Noted Date Diagnosed Date Adjustment disorder with depressed mood 06/01/19 23 Assessment Noted Time PHQ-9 Depression Total Score: 0 09/02/19 24 11:42 AM EDT documented as of this encounter Care Teams Structural Shop Helper Relationship Specialty Start Date End Date Nikki Baker MD [address] [place] [address] PCP - General Family Medicine 07/21/18 documented as of this encounter
--- OUTSIDE RECORDS SUMMARY | 2024-04-14 19:23 | XMS_ITS | Encounter Summary ---
Author Organization [employer] Address 75 [facility] 7t [place] [address] Care Team Providers Care Heel Shaver Name Role Phone Nikki Baker MD Primary Care Provide r Reason for Referral * Consultation (Urgent) - Closed Specialty Diagnoses / Procedures Referred By Jossy uribe Referred To Contact Diagnoses Right hand pain Laceration of right hand without foreign body, initial encounter Nikki Baker MD 230 [place] [address] Phone: tel: fax: [facility] [address] [place] [address] Phone: tel: Referral ID Status Reason Start Date Expiration Date V isits Requested Visits Authorized [id number] Closed Specialty Services Required 04/11/2024 04/11/2025 20 20 Encounter Details Date Type Department Care Team (Late st Contact Info) Description 04/10/2024 Orders Only [facility] 230 [place] [address] Nikki Baker MD 230 [place], [place] [phone] Right hand pain (Primary Dx); Laceration of right hand without foreign body, initial encounter Social History Tobacco Use Types Packs/Day Years [...] Description 05/16/2024 10:00 AM EDT Office Visit [facility] [address] [place] [address] Nikki Baker MD 230 [place] [address] Scheduled Referrals Name Type Priority Associated Diagnoses Orde r Schedule Referral to Physical Therapy Outpatient Referral Urgent Right hand pain Laceration of right hand without foreign body, initial encounter Expected: 04/10/2024 (Approximate), Expires: 04/10/2025 documented as of this encounter Visit Diagnoses Diagnosis Right hand pain- Primary Pain in soft tissues of limb Laceration of right hand without foreign body, initial encounter documented in this encounter Additional Health Concerns Active Problems Noted Date Diagnosed Date Adjustment disorder with depressed mood 06/01/19 23 Assessment Noted Time PHQ-9 Depression Total Score: 0 09/02/19 24 11:42 AM EDT documented as of this encounter Care Teams Heel Shaver Relationship Specialty Start Date End Date Nikki Baker MD 230 [place] [address] PCP - General Family Medicine 07/21/18 documented as of this encounter
--- OUTSIDE RECORDS SUMMARY | 2024-04-14 19:23 | XMS_ITS | Encounter Summary ---
Author Organization [employer] Address 75 [facility] 7t [place] [address] Care Team Providers Care Combo Welder Name Role Phone Nikki Baker MD Primary Care Provide r Reason for Visit * Reason Onset Date Comments ED follow up 03/30/2024 Encounter Details Date Type Department Care Team (Late st Contact Info) Description 03/30/2024 Telephone [facility] 230 [place], [place] [phone] Nikki Baker MD 230 [place], [place] [phone] ED follow up Social History Tobacco Use [...] 1:46 PM EST Received call from CRS Dye Weigher requesting ed follow up apt for pt as he reported visiting ed fordog attack. Informed crs fd I would forward message to team rns. documented in this encounter Plan of Treatment Upcoming Encounters Date Type Department Care Team (Late st Contact Info) Description 05/16/2024 10:00 AM EDT Office Visit [facility] [address] [place] [address] Nikki Baker MD 230 [place], [place] [phone] documented as of this encounter Visit Diagnoses Not on filedocumented in this encounter Additional Health Concerns Active Problems Noted Date Diagnosed Date Adjustment disorder with depressed mood 06/01/19 23 Assessment Noted Time PHQ-9 Depression Total Score: 0 09/02/19 24 11:42 AM EDT documented as of this encounter Care Teams Combo Welder Relationship Specialty Start Date End Date Nikki Baker MD [address] [place] [address] PCP - General Family Medicine 07/21/18 documented as of this encounter
--- OUTSIDE RECORDS SUMMARY | 2024-04-14 19:23 | XMS_ITS | Encounter Summary ---
Author Organization [employer] Address 75 [facility] 7t [place] [address] Care Team Providers Care Ironing Worker Name Role Phone Nikki Baker MD Primary Care Provide r Reason for Visit * Reason Onset Date Comments Appointment Request 03/29/2024 Encounter Details Date Type Department Care Team (Late st Contact Info) Description 03/29/2024 Telephone [facility] 230 [place], [place] [phone] Nikki Baker MD 230 [place], [place] [phone] Appointment Request Social History Tobacco Use Types [...] PCP to follow up on chronic conditions. Fire Equipment Inspector Helper advise pt he is on a recall for June. Pt scheduled for ER follow up/Sick visit on 04/02/24 with Lilli but would still like to schedule a follow up with PCP. Fire Equipment Inspector Helper advise will send a message to medical records coordinator. Contact pt at [phone] documented in this encounter Plan of Treatment Upcoming Encounters Date Type Department Care Team (Late st Contact Info) Description 05/16/2024 10:00 AM EDT Office Visit [facility] [address] [place] [address] Nikki Baker MD [address] [place] [address] documented as of this encounter Visit Diagnoses Not on filedocumented in this encounter Additional Health Concerns Active Problems Noted Date Diagnosed Date Adjustment disorder with depressed mood 06/01/19 23 Assessment Noted Time PHQ-9 Depression Total Score: 0 09/02/19 24 11:42 AM EDT documented as of this encounter Care Teams Ironing Worker Relationship Specialty Start Date End Date Nikki Baker MD [address] [place] [address] PCP - General Family Medicine 07/21/18 documented as of this encounter
--- OUTSIDE RECORDS SUMMARY | 2024-04-14 19:23 | XMS_ITS | Clinical Summary ---
Author Organization [employer] Address [address] [facility] 7t [place] [address] Care Team Providers Care Pinmaker Name Role Phone Nikki Baker MD Primary [...] anal sex 2 tablet 04/02/19 25 Active gabapentin (Neurontin) 300 MG capsuleIndicat ions:Laceratio [...] to 10 days. 30 capsule 04/02/19 25 Active bacitracin-lou ymyxin b (Polysporin) ointmentIndica tions:Lacerati [...] order (will not trigger notification to Pharmacy)) oxyCODONE (Roxicodone) 5 MG immediate release tabletIndicati ons:Laceration of right hand without foreign body, initial encounter Take 1 tablet (5 mg) by mouth every 6 (six) hours if needed for severe pain for up to 7 days. 28 tablet 04/02/19 25 025 sulfamethoxazo le-trimethopri m (Bactrim DS) 800-160 MG tabletIndicati ons:Laceration of right hand without foreign body, initial encounter Take 1 tablet by mouth 2 times daily for 7 days. 14 tablet 04/02/19 25 025 Hospital, Clinic, or Other Facility Administered Medication [...] with therapist Overweight 01/01/2008 Acne 06/26/2007 Encounters * This document contains information received from the source organization and may not represent a complete record from that organization. Date Type Department Care Team Description 04/12/2024 Orders Only [address] [address] Екатерина Berg RN 04/11/2024 Telephone [facility] [address] [place] [address] Nikki Baker MD MRI HAND ORDER 04/10/2024 Orders Only [address] [address] Nikki Baker MD Right hand pain (Primary Dx); Laceration of right hand without foreign body, initial encounter 04/02/2024 2:30 PM EST Office Visit [address] [address] Nikki Baker MD Depressive disorder (Primary Dx); Anxiety; Laceration of right hand without foreign body, initial encounter; Mood disorder (CMS/HCC) 04/02/2024 Travel 04/02/2024 Orders Only [address] [address] Nikki Baker MD On pre-exposure prophylaxis for HIV (Primary Dx) 03/30/[address] [place] [address] Nikki Baker MD ED follow up 03/29/[address] [address] Nikki Baker MD Appointment Request 03/29/[address] [address] Nikki Baker MD Appointment Request 03/29/[address] [address] Nikki Baker MD Nurse Triage 02/01/2024 Orders Only [facility] [address] [place] [address] Nikki Baker MD 01/31/[address] [address] Nikki Baker MD from Last 3 Months Immunizations Name Administration Dates Next Due DTP 07/12/1997, 5,07/22/1993,11/22,1992 Hep B, Adolescent or Pediatric 07/22/1993,1992,1992 HepB-CpG 03/03/2023 04/01/2023 Hib ([facility]) 03/09/1994,199 4,1992,09/23 IPV 07/12/1997,199 4,1992,09/23 Influenza injectable quadriv alent preservative free [...] [facility] [address] [place] [address] Nikki Baker MD [address] [place] [address] Health Maintenance Due Date Last Done Comments [...] 75+ series) 07/24/2067 HIB Vaccines Completed 03/09/1994, 02/1993, 1992, Additional history exists IPV Vaccines Completed 07/12/1997, 02/1993, 1992, Additional history exists Hepatitis B Vaccines Completed 03/03/2023, 07/22/1993, 1992, Additional history exists HIV Screening Completed 04/02/2024, 12/22, 07/20/2023, Additional history exists Hepatitis C Screening Completed 04/02/2024 , 01/04/2024, 07/20/2023, Additional history exists HPV Vaccines Aged Out [...] Procedure Name Priority Date/Time Associated Diagnosis Comments HIV ANTIBODY/ANTIGEN ([place] [facility]) Routine 04/02/2024 HEPATITIS C ANTIBODY ([facility]) Routine 04/02/2024 SYPHILIS ABS ([facility]) Routine 04/02/2024 CHLAMYDIA/GONORRHEA THROAT SWAB ([facility]) Routine 04/02/2024 LIPID PANEL, STANDARD Routine 07/20/2023 2:38 PM EDT Fatigue, unspecified type from Last 3 Months or Most Recently Relevant to Health Maintenance Results * Chlamydia/Gonorrhea Throat Swab ([place] [facility]) (04/02/2024) Chlamydia Throat Swab Negative Gonorrhea Throat Swab Negative Swab 04/02/2024 Historical Provider LAB MICROBIOLOGY - GENERA L ORDERABLES Final Result * Syphilis Antibodies (D[facility]) (04/02/2024) Syphilis Abs Nonreactive Borderline, Nonreactive, Weakly Reactive, Inconclusive, Specimen unsatisfactory for evaluation Blood Venous blood specimen / Unknown 04/02/2024 us Historical Provider LAB BLOOD ORDERABLES Nona l Result * Hepatitis C Antibody ([facility]) (04/02/2024) Hepatitis C Ab Nonreactive Blood 04/02/2024 Historical Provider LAB BLOOD ORDERABLES Nona l Result * HIV Ab/Ag ([facility]) (04/02/2024) HIV Ag/Ab Nonreactive Blood 04/02/2024 Historical Provider LAB BLOOD ORDERABLES Nona l Result * (ABNORMAL) Lipid Panel, Standard (07/20/2023 2:38 PM EDT) Triglycerides 103 <150 mg/dL [facility] Comment:Desirable Triglyceri de: less than 150 mg/dLBorderline High Triglyceride 150-199 mg/dLHigh Triglyceride: 200-499 mg/dLVery High Triglyceride: greater than or equal to 5OO mg/dL Cholesterol 117 <200 mg/dL [facility] Comment:Desirable Cholestero l: less than 200 mg/dLBorderline High Cholesterol: 200-239 mg/dLHigh Cholesterol: greater than 239 mg/dL LDL Cholesterol Calculated 57 <100 mg/dL [facility] Comment:Desirable LDL: less than 100 mg/dLNear Optimal/Above Optimal LDL: 110- 129 mg/dLBorderline High LDL: 130-159 mg/dLHigh LDL: 160-189 mg/dLVery High LDL: greater than or equal to 190 mg/dL HDL Cholesterol 40(L) >40 mg/dL [facility] Comment:Desirable HDL: great er than 40 mg/dL Note: This HDL assay may give artificially low results in patients with liver disease. Blood Venous blood specimen / Unknown 07/20/2023 2:38 PM EDT 07/20/2023 4:41 PM EDT Nikki Bower MD LAB BLOOD ORDERABLES Final Result [facility] [address] [place] [address] [phone] from Last 3 Months or Most Recently Relevant to Health Maintenance Additional Health Concerns Active Problems Noted Date Diagnosed Date Adjustment disorder with depressed mood 06/01/19 23 [facility] Care Teams Pinmaker Relationship Specialty Start Date End Date Nikki Baker MD [address] [place] [phone] PCP - General Family Medicine 07/21/18
--- OUTSIDE RECORDS SUMMARY | 2024-04-14 19:23 | XMS_ITS | Encounter Summary ---
Author Organization [email or web address] Address [address] [facility] 7t [place] [address] Care Team Providers Care Vice President Client Services Name Role Phone Nikki Baker MD Primary Care Provide r Reason for Visit * Reason Onset Date Comments Referral 09/02/2023 Encounter Details Date Type Department Care Team (Late st Contact Info) Description 09/02/2023 Telephone [facility] [address] [place], [place] [phone] Nikki Baker MD [address] [place], [place] [phone] Referral Social History Tobacco Use Types Packs/Day [...] from pt requesting to be referred to [facility] - Weight Management - [address], [place] [address] , states [facility] is no longer accepting new patients. Please contact at [phone] * Telephone Encounter - Marie Trevizo RN - 09/02/2023 12:49 PM EDT Bariatric surgery referral placed today, pt. Requesting location in [facility] * Telephone Encounter - Zari Perez - 09/02/2023 12:39 PM EDT Tc from pt calling requesting a different location on bariatric referral, [facility] [place] [facility] and he will like to be seen on [place]. documented in this encounter Plan of Treatment Upcoming Encounters Date Type Department Care Team (Late st Contact Info) Description 05/16/2024 10:00 AM EDT Office Visit [facility] [address] [place] [address] Nikki Baker MD [address] [place], [place] [phone] documented as of this encounter Visit Diagnoses Not on filedocumented in this encounter Additional Health Concerns Active Problems Noted Date Diagnosed Date Adjustment disorder with depressed mood 06/01/19 23 Assessment Noted Time PHQ-9 Depression Total Score: 0 09/02/19 24 11:42 AM EDT documented as of this encounter Care Teams Vice President Client Services Relationship Specialty Start Date End Date Nikki Baker MD [address] [place] [address] PCP - General Family Medicine 07/21/18 documented as of this encounter
--- OUTSIDE RECORDS SUMMARY | 2024-04-14 19:23 | XMS_ITS | Encounter Summary ---
Author Organization [email or web address] Address [address] [facility] 7t [place] [address] Care Team Providers Care Timber Surveyor Name Role Phone Nikki Baker MD Primary Care Provide r Encounter Details Date Type Department Care Team ([facility] st Contact Info) Description 04/02/2024 Orders Only [facility] [address] [place], [place] [phone] Nikki Baker MD [address] [place], [place] [phone] On pre-exposure prophylaxis for HIV (Primary Dx) [...] Description 05/16/2024 10:00 AM EDT Office Visit [facility] [address] [place] [address] Nikki Baker MD [address] [place] [address] documented as of this encounter Visit Diagnoses Diagnosis On pre-exposure prophylaxis for HIV- Primary documented in this encounter Additional Health Concerns Active Problems Noted Date Diagnosed Date Adjustment disorder with depressed mood 06/01/19 23 Assessment Noted Time PHQ-9 Depression Total Score: 0 09/02/19 24 11:42 AM EDT documented as of this encounter Care Teams Timber Surveyor Relationship Specialty Start Date End Date Nikki Baker MD [address] [place] [phone] PCP - General Family Medicine 07/21/18 documented as of this encounter
--- OUTSIDE RECORDS SUMMARY | 2024-04-14 19:23 | XMS_ITS | Encounter Summary ---
Author Organization [employer] Address [address] [facility] 7t [place] [address] Care Team Providers Care Mainframe Software Developer Name Role Phone Nikki Baker MD Primary Care Provide r Encounter Details Date Type Department Care Team ([facility] st Contact Info) Description 02/01/2024 Orders Only [facility] [address] [place], [place] [phone] Nikki Baker MD [address] [place] [address] Social History Tobacco Use Types Packs/Day Years [...] Description 05/16/2024 10:00 AM EDT Office Visit [facility] [address] [place] [address] Nikki Baker MD [address] [place] [address] documented as of this encounter Visit Diagnoses Not on filedocumented in this encounter Additional Health Concerns Active Problems Noted Date Diagnosed Date Adjustment disorder with depressed mood 06/01/19 23 Assessment Noted Time PHQ-9 Depression Total Score: 0 09/02/19 24 11:42 AM EDT documented as of this encounter Care Teams Mainframe Software Developer Relationship Specialty Start Date End Date Nikki Baker MD [address] [place] [phone] PCP - General Family Medicine 07/21/18 documented as of this encounter
== END 2024-04-14 19:18 | disposition home or self-care (01) ==
LOC: HO.MRI 19:17
PROVIDERS: PCP Internal Medicine; Visit Provider Internal Medicine
DX: S61.411A Laceration without foreign body of right hand, initial encounter (principal)
CPT/HCPCS: 73218

== ENCOUNTER 2024-09-24 11:23 | Outpatient (REF) | payer MEDICAID, SELFPAY ==
--- OUTSIDE RECORDS SUMMARY | 2024-09-24 12:18 | XMS_ITS | Clinical Summary ---
Author Organization [facility] Address [address] [place] [address] Phone Care Team Providers Care Net Developer Contract Name Role Phone Nikki Baker MD Primary Care Provide r Social History Tobacco Use Types Packs/Day Years Used Date Smoking Tobacco: Never Assessed Sex and Gender Information Value Date Recorded Sex Assigned at Not on file Legal Sex Male 1:46 AM EST Gender Identity Not on file Sexual Orientation Not on file Plan of Treatment Health Maintenance Due Date Last Done Comments Hepatitis A Vaccines (1 of 2 - Risk 2-dose series) 07/24/2011 Pneumococcal Vaccine: Pediatrics (0 to 5 Years) and At-Risk Patients (6 to 49 Years) (2 of 2 - PCV) 08/12/2013 08/12/2012 HIV Screening 01/24/2022 Hepatitis C Screening 01/24/2022 Social Influencers of Health Screening 01/24/2022 COVID-19 Vaccine ( season) 2023 Depression Screening 02/22/2024 Influenza Vaccine (#1) 2024 , 12/18/2012, 12/05/2001 Cholesterol Screening (Lipid Panel) 07/19/2028 07/20/2023 DTaP,Tdap,and Td Vaccines (9 - Td or Tdap) 06/09/2030 06/09/2020, 10/10/2011, 10/12/2005, Additional history exists HIB Vaccines Completed 03/09/1994, 02/1993, 1992, Additional history exists IPV Vaccines Completed 07/12/1997, 02/1993, 1992, Additional history exists MMR Vaccines Completed 07/12/1997, 03/09/1994 Varicella Vaccines Completed 01/01/2008, 07/12/1997 Hepatitis B Vaccines Completed 03/03/2023, 07/22/1993, 1992, Additional history exists HPV Vaccines Aged Out No longer eligi ble based on patient's age to complete this topic Meningococcal ACWY Vaccine Aged Out N o longer eligible based on patient's age to complete this topic Meningococcal B Vaccine Aged Out No l onger eligible based on patient's age to complete this topic RSV Immunization Patients Under 20 months Aged Out No longer eligible based on patient's age to complete this topic Insurance MEDICAID - [place] Care Teams Net Developer Contract Relationship Specialty Start Date End Date Nikki Baker MD 230 [facility] 1 [place] [phone] PCP - General Internal Medicine 01/10/24
--- OUTSIDE RECORDS SUMMARY | 2024-09-24 12:18 | XMS_ITS | Encounter Summary ---
Author Organization [employer] Address [address] [place] [address] 7t [place] [address] Care Team Providers Care Casting Director Name Role Phone Nikki Baker MD Primary Care Provide r Encounter Details Date Type Department Care Team ([facility] st Contact Info) Description 03/29/2022 [facility] Information Management [address] [place], [place] [phone] Nikki Baker MD [address] [place] [address] Social History Tobacco Use Types Packs/Day Years Used Date Smoking Tobacco: Never Assessed Sex and Gender Information Value Date Recorded Sex Assigned at Male 12/21/2021 10:14 AM EDT Legal Sex Male 10:14 AM EDT Gender Identity Male 12/21/2021 10:14 AM EDT Sexual Orientation Bisexual 10/14/2022 11 :30 AM EDT documented as of this encounter Plan of Treatment Not on file documented as of this encounter Visit Diagnoses Not on filedocumented in this encounter Care Teams Casting Director Relationship Specialty Start Date End Date Nikki Baker MD [address] [place], [place] [phone] PCP - General Family Medicine 07/21/18 documented as of this encounter
[2024-09-24 13:52] LABS: Blood Urea Nitrogen 10 mg/dL (9-16); Estimated Glomerular Filt Rate > 60
[2024-09-25 08:16] LABS: HIV Num 1 0.06 S/CO (0.00-0.99); ~HepC Num1 0.13 S/CO (0.00-0.79); ~Hepatitis C Antibody Nonreactive (Nonreactive)
[2024-09-25 08:50] LABS: Syphilis Screen Nonreactive (Nonreactive)
== END 2024-09-24 11:24 | disposition home or self-care (01) ==
LOC: HO.HHCL 11:23
PROVIDERS: Internal Medicine; PCP Internal Medicine; Visit Provider Internal Medicine
DX: Z11.4 Encounter for screening for human immunodeficiency virus [HIV] (principal); Z20.6 Contact with and (suspected) exposure to human immunodeficiency virus [HIV]; Z11.3 Encounter for screening for infections with a predominantly sexual mode of transmission; Z11.59 Encounter for screening for other viral diseases
CPT/HCPCS: 36415; 82565; 84520; 86780; 86803; 87389

== ENCOUNTER 2024-11-16 13:16 | Outpatient (REF) | payer MEDICAID, SELFPAY ==
--- OUTSIDE RECORDS SUMMARY | 2024-11-16 14:33 | XMS_ITS | Encounter Summary ---
Author Organization [employer] Address [address] [facility] [address] 7t [place] [address] Care Team Providers Care Surgical Attendant Name Role Phone Nikki Baker MD Primary Care Provide r Encounter Details Date Type Department Care Team ([facility] st Contact Info) Description 02/01/2024 Orders Only [facility] [address] [place], [place] [phone] Nikki Baker MD [address] [place] [address] Social History Tobacco Use Types Packs/Day Years [...] Care Team (Late st Contact Info) Description 11/27/2024 1:45 PM EDT Office Visit [facility] [address] [place] [address] Jyoti Joshi, DATABASE SECURITY ADMINISTRATOR [address] [place] [address] documented as of this encounter Visit Diagnoses Not on filedocumented in this encounter Additional Health Concerns Active Problems Noted Date Diagnosed Date Adjustment disorder with depressed mood 06/01/19 23 Assessment Noted Time PHQ-9 Depression Total Score: 0 09/02/19 24 11:42 AM EDT documented as of this encounter Care Teams Surgical Attendant Relationship Specialty Start Date End Date Nikki Baker MD [address] [place] [address] PCP - General Family Medicine 07/21/18 documented as of this encounter
--- OUTSIDE RECORDS SUMMARY | 2024-11-16 14:33 | XMS_ITS | Encounter Summary ---
Author Organization [employer] Address [address] [facility] 7t [place] [address] Care Team Providers Care Vat House Laborer Name Role Phone Nikki Baker MD Primary Care Provide r Reason for Visit * Reason Onset Date Comments Referral 09/02/2023 Encounter Details Date Type Department Care Team ([facility] Contact Info) Description 09/02/2023 Telephone [facility] [address] [place], [place] [phone] Nikki Baker MD [address] [place] [address] Referral Social History Tobacco Use Types Packs/Day [...] AM EDT documented as of this encounter Functional Status * Over the past 2 weeks, how often have you been bothered by any of the following problems? Question Answer Date of Assessment Author Patient Health Questionnaire -2 Score 0 09/02/2023 11:42 AM KITTYT Wyatt Lynn [place] * Over the past 2 weeks, how often have you been bothered by any of the following problems? Question Answer Date of Assessment Author Little interest or pleasure in doing things Not at all 09/02/2023 11:42 AM Wyatt Dozier MA Feeling down, depressed, or hopeless Not at all 09/02/2023 11:42 AM Wyatt Dozier [place] Trouble falling or staying asleep, or sleeping too much Not at all 09/02/2023 11:42 AM Wyatt Dozier [place] Feeling tired or having jg le energy Not at all 09/02/2023 11:42 AM Waytt Dozier [place] Poor appetite or overeating Not at all 09/02/2023 11 :42 AM Wyatt Dozier [place] Feeling bad about yourself - or that you are a failure or have let yourself or your family down Not at all 09/02/2023 11:42 AM Wyatt Dozier [place] Trouble concentrating on things, such as reading the newspaper or watching television Not at all 09/02/2023 11:42 AM Wyatt Dozier MA Moving or speaking so slowly that other people could have noticed? Or the opposite - being so fidgety or restless that you have been moving around a lot more than usual. Not at all 09/02/2023 11:42 AM EDT Wyatt Lynn MA Thoughts that you would be better off or hurting yourself in some way Not at all 09/02/2023 11:42 AM EDT Wyatt Lynn MA Patient Health Questionnaire -9 Score 0 09/02/2023 11:42 AM EDT Wyatt Lynn MA documented as of this encounter Miscellaneous Notes * Telephone Encounter - Aron Madden - 09/12/2023 12:27 PM EDT Tc from pt requesting to be referred to [facility] - Weight Management - [address] [facility] [address], [place] [address] , [place] [facility] [place]. Please contact at [phone] * Telephone Encounter - Marie Trevizo RN - 09/02/2023 12:49 PM EDT Bariatric surgery referral placed today, pt. Requesting location in [facility] * Telephone Encounter - Zari Perez - 09/02/2023 12:39 PM EDT Tc from pt calling requesting a different location on bariatric referral, stated [place] officedon't take [facility] C3 and he will like to be seen on [place]. documented in this encounter Plan of Treatment Upcoming Encounters Date Type Department Care Team (Late st Contact Info) Description 11/27/2024 1:45 PM EDT Office Visit [facility] [address] [place] [address] Jyoti Joshi, JUAN [address] [place] [address] documented as of this encounter Visit Diagnoses Not on filedocumented in this encounter Additional Health Concerns Active Problems Noted Date Diagnosed Date Adjustment disorder with depressed mood 06/01/19 23 Assessment Noted Time PHQ-9 Depression Total Score: 0 09/02/19 24 11:42 AM EDT documented as of this encounter Care Teams Vat House Laborer Relationship Specialty Start Date End Date Nikki Baker MD [address] [place] [address] PCP - General Family Medicine 07/21/18 documented as of this encounter
--- OUTSIDE RECORDS SUMMARY | 2024-11-16 14:33 | XMS_ITS | Clinical Summary ---
Author Organization [employer] Address [address] [facility] 7t [place] [address] Care Team Providers Care Public Information Director Name Role Phone Nikki Baker MD Primary Care Provide r Allergies No known active allergies Medications * This document contains information received from the source organization and may not represent a complete record from that organization. bacitracin-polym yxin b (Polysporin) ointment Apply topically 2 times daily. 15 g 3 Active QUEtiapine (SEROquel) 50 MG tabletIndication s:Depressive disorder Take 1 tablet (50 mg) by mouth at bedtime. 30 tablet 5 Active hydrOXYzine pamoate (Vistaril) 50 MG capsuleIndicatio ns:Anxiety Take 1 capsule (50 mg) by mouth every 8 (eight) hours if needed for itching for up to 10 days. 30 capsule 5 Active gabapentin (Neurontin) 600 MG tabletIndication s:Right hand pain Take 1 tablet (600 mg) by mouth 3 times daily. 90 tablet 2 5 05/17/19 26 Active emtricitabine-te nofovir AF (Descovy) 200-25 MG tabletIndication s:Screening for STD (sexually transmitted disease) Take 1 tablet by mouth Once per day. 30 tablet 2 5 Active bictegravir-emtr icitab-tenofovir (Biktarvy) 50-200-25 MG tablet Take 1 tablet by mouth Once per day. 30 tablet 5 Active doxycycline (Vibra-Tabs) 100 MG tabletIndication s:On pre-exposure prophylaxis for HIV Take 2 tablets with in 72 hours of condomless vaginal, oral or anal sex 2 tablet Active Hospital, Clinic, or Other Facility Administered Medication Ordered Dose Route Frequency Start Date End Date Status doxycycline (Adoxa) tablet 100 mgIndications:Chlamydia 100 mg PO 2 times daily 02/18/2022 Active Active Problems Problem Noted Date Diagnosed Date Cannabis abuse 11/09/2024 Exposure to human immunodeficiency virus 025 Assessment & Plan (09/03/2024 4:32 PM EDT): Given the patient is within the 72 hours window period for PEP HIV prophylaxis, I will prescribe Biktarvy x 28 days since he was previously tolerating Descovy well.. Advised to follow-up today's lab results closely with CRS program, Advised to reach out to recent sex contact contact and have him check viral load if at all possible. Avoid intercourse if at all possible within the next 20 days Rx PEP Doxy x 1 day for potential chlamydia exposure, advised regarding use of condom at all times and adhere to PrEP after he completes the 28 days or otherwise. She follow-up with PCP within 4 weeks and decide additional POC Right hand pain 05/16/2024 Assessment & Plan (05/16/2024 10:43 AM EDT): I will increase his gabapentin to 600mg Q 8hrs I prescribed for patient ibuprofen 800mg Q 8hrs as needed Nerve study and EMG ordered I will prescribe a hand brace I referred patient to specialist Mixed stress and urge urinary incontinence 05/16 Assessment & Plan (05/16/2024 10:36 AM EDT): I will prescribe for patient bed pads Laceration of left hand without foreign body [...] anxiety/depression and take medications as directed Positive MEE (antinuclear antibody) 07/27/2023 Cervical lymphadenopathy 05/20/2023 Folliculitis [...] to follow up with therapist Asthma 06/19/2012 Assessment & Plan (05/16/2024 10:36 AM EDT): Patient educated to avoid triggers Letter will be generated to accommodate patient with carpet removal at his apartment in order to avoid asthma exacerbation C/w albuterol PRN Sleep disorder 06/19/2012 Depressive disorder 06/19/2012 Assessment & Plan (05/20/2023 3:17 PM EDT): Counseling done I will start him on quetiapine, he reports he will start services with therapist Overweight 01/01/2008 Acne 06/26/2007 Encounters Date Type Department Care Team Description 11/16/2024 Orders Only [facility] [address] [place] [phone] Nikki Baker MD Pre-operative clearance (Primary Dx) 11/09/2024 Telephone [facility] [address] [place] [address] Nikki Baker MD chart prep 11/06/2024 Telephone [facility] [address] [place] [phone] Nikki Baker MD Pre-op Visit 11/05/2024 Telephone [facility] [address] [place] [phone] Nikki Baker MD Pre-op Visit 09/24/2024 Orders Only [facility] [address] [place] [phone] Екатерина Berg, RN Exposure to human immunodeficiency virus 09/10/2024 Orders Only [facility] [address] [place] [phone] Екатерина Berg, RN 09/04/2024 Telephone [facility] [address] [place] [phone] Mee Alejandro MD 09/03/2024 4:20 PM EDT Office Visit [facility] [address] [address] Mee Alejandro MD Exposure to human immunodeficiency virus (Primary Dx); On pre-exposure prophylaxis for HIV 09/03/2024 Travel 08/20/2024 Refill [facility] [address] [place] [phone] Jeniffer Prescott RN Screening for STD (sexually transmitted disease) 08/20/2024 Refill [facility] [address] [place] [phone] Jeniffer Prescott RN from Last 3 Months Immunizations Immunization Administration Dates Next Due DTP 07/12/1997, 5,07/22/1993,11/22,1992 Hep B, Adolescent or Pediatric 07/22/1993,1992,1992 HepB-CpG 03/03/2023 04/01/2023 Hib ([facility]) 03/09/1994, 4,1992,09/23 IPV 07/12/1997, 4,1992,09/23 Influenza injectable quadriv alent preservative free 02/12/2020 Influenza, IIV3, injectable 12/05/2001 Influenza, Split (incl. shaheen fied surface antigen) 12/18/2012 MMR 07/12/1997,03/09/1994 Pneumococcal Polysaccharide PPSV23 08/12/2012 Td (adult), 5 Lf tetanus tox oid, preservative free, adsorbed 10/10/2011 Tdap 03/27/2024,06/09/2020,10/12/2005 Varicella 01/01/2008,07/12/1997 Social History Tobacco Use Types [...] Sign Reading Time Taken Comments Blood Pressure 132/88 09/03/2024 1:14 PM EDT Pulse 72 09/03/2024 1:14 PM EDT Temperature 36.6 C (97.8 F) 09/03/2024 1:14 PM EDT Respiratory Rate 18 09/03/2024 1:14 PM EDT Oxygen Saturation 98% 09/02/2023 11:41 AM EDT Inhaled Oxygen Concentration - - Weight 127 kg (279 lb) 09/03/2024 1:14 PM EDT Height 180.3 cm (5' 11 ) 09/03/2024 1:14 PM EDT Body Mass Index 38.91 09/03/2024 1:14 PM EDT Plan of Treatment Upcoming Encounters Date Type Department Care Team (Late st Contact Info) Description 11/27/2024 1:45 PM EDT Office Visit [facility] [address] [place] [address] Jyoti Joshi, FINANCE ASSISTANT [address] [place] [address] Health Maintenance Due Date Last Done Comments Disability Screening 1992 Alcohol/Substance Use Screening 2004 Family Planning (PISQ) 07/24/2007 HPV Vaccines (1 - Male 3-dose series) 07/24/2007 Pneumococcal Vaccine: Pediatrics (0 to 5 Years) and At-Risk Patients (6 to 49) Years (2 of 2 - PCV) 08/12/2013 08/12/2012 Depression Screening 09/01/2024 09/02/2023, 09/02/19 24 SDOH Screening 09/01/2024 09/02/2023 COVID-19 Vaccine ( - season) 2024 10/30/2020, 10/09/2020 Influenza Vaccine (#1) 2024 , 12/18/2012, 12/05/2001 Tobacco Screening 09/03/2025 09/03/2024 Lipid Panel 07/19/2028 07/20/2023 DTaP/Tdap/Td Vaccines (10 - Td or Tdap) 03/27/2034 03/27/2024, 06/09/2020, 10/10/2011, Additional history exists Zoster Vaccines (1 of 2) 2042 RSV Patients and Patients Aged 60 years or older (1 - 1-dose 75+ series) 07/24/2067 HIB Vaccines Completed 03/09/1994, 02/1993, 1992, Additional history exists IPV Vaccines Completed 07/12/1997, 02/1993, 1992, Additional history exists Hepatitis B Vaccines Completed 03/03/2023, 07/22/1993, 1992, Additional history exists HIV Screening Completed 09/24/2024, 08/21, 07/20/2024, Additional history exists Hepatitis C Screening Completed 09/24/2024 , 09/03/2024, 07/20/2024, Additional history exists Hepatitis A Vaccines Aged Out No long [...] Procedure Name Priority Date/Time Associated Diagnosis Comments SYPHILIS SCREEN Routine 09/24/2024 11:33 AM EDT Exposure to human immunodeficiency virus HIV 1/2 ANTIGEN/ANTIBODY, FOURTH GENERATION W/RFL Routine 09/24/2024 11:33 AM EDT Exposure to human immunodeficiency virus HEPATITIS C AB W/REFL TO HCV RNA, QN, PCR Routine 09/24/2024 11:33 AM EDT Exposure to human immunodeficiency virus CREATININE, SERUM Routine 09/24/2024 11: 33 AM EDT Exposure to human immunodeficiency virus UREA NITROGEN (BUN) Routine 09/24/2024 11:33 AM EDT Exposure to human immunodeficiency virus HIV ANTIBODY/ANTIGEN ([place] DPH) Routine 09/03/2024 HEPATITIS C ANTIBODY ([place] DPH) Routine 09/03/2024 SYPHILIS ABS ([place] DPH) Routine 09/03/2024 CHLAMYDIA/GONORRHE A - URINE ([place] DPH) Routine 09/03/2024 CHLAMYDIA/GONORRHE A RECTAL SWAB ([place] DPH) Routine 09/03/2024 CHLAMYDIA/GONORRHE A THROAT SWAB ([place] DPH) Routine 09/03/2024 LIPID PANEL, STANDARD Routine 07/20/2023 2:38 PM EDT Fatigue, unspecified type from Last 3 Months or Most Recently Relevant to Health Maintenance Results * Syphilis Screen (09/24/2024 11:33 AM EDT) Syphilis Screen Nonreactive Nonreactive [facility] 09/24/2024 11:3 3 AM EDT 09/24/2024 1:17 PM EDT us Nikki Bower MD LAB BLOOD ORDERABLES Final Result Performing Organization Address [facility] Hospital/ZIP Co de Phone Number [facility] [address] [place] [phone] * Creatinine, Serum (09/24/2024 11:33 AM EDT) Creatinine, Serum 1.10 0.5 - 1.4 mg/dL [facility] Estimated Glomerular Filt Rate >60 [facility] Comment:Chronic Kidney Disea se: Estimated GFR < 60 mL/min/1.99p5Tvbuih Kidney Disease: Estimated GFR < 15 mL/min/1.73m2 Blood Venous blood specimen / Unknown 09/24/2024 11:33 AM EDT 09/24/2024 1:17 PM EDT us Mee Alejandro MD LAB BLOOD ORDERABLES Fin al Result Performing Organization Address [facility]/ZIP Co de Phone Number [facility] [address] [place] [phone] * Hepatitis C Antibody with Reflex to HCV, RNA, Quantitative, Real-Time PCR (09/24/2024 11:33 AM EDT) Hepatitis C Antibody Nonreactive Nonreactive [facility] Comment:Antibodies to HCV no t detected; does not exclude early acuteHCV infection. 09/24/2024 11:3 3 AM EDT 09/24/2024 1:17 PM EDT us Nikki Bower MD LAB BLOOD ORDERABLES Final Result Performing Organization Address [facility]/ZIP Co de Phone Number [facility] [address] [place] [phone] [phone] * HIV-1/2 Antigen and Antibodies, Fourth Generation, with Reflexes (09/24/2024 11:33 AM EDT) HIV AB/AG Nonreactive Nonreactive [facility] Comment:HIV-1 p24 Ag and/or HIV-1/HIV-2 Ab not detected.A test result that is nonreactive does not exclude thepossibility of exposure to or infection with HIV-1 and/orHIV-2. Nonreactive results in this assay for individualswith prior exposure to HIV-1 and/or HIV-2 may be due toantigen and antibody levels that are below the limit ofdetection of this assay.The [employer] HIV Ag/Ab Combo assay result andsupplemental assay results should be interpreted inconjunction with the patient's clinical presentation,history and other laboratory results. If the results areinconsistent with clinical evidence, additional testing issuggested to confirm the result. 09/24/2024 11:3 3 AM EDT 09/24/2024 1:17 PM EDT us Nikki Bower MD LAB BLOOD ORDERABLES Final Result Performing Organization Address City/Va Hospital/ZIP Co de Phone Number [facility] [address] [place] [phone] * BUN (Blood Urea Nitrogen) (09/24/2024 11:33 AM EDT) Urea Nitrogen (BUN) 10 9 - 16 mg/dL [facility] Blood Venous blood specimen / Unknown 09/24/2024 11:33 AM EDT 09/24/2024 1:17 PM EDT Mee Alejandro MD LAB BLOOD ORDERABLES Fin al Result [facility] [address] [facility] [address] [phone] * Chlamydia/Gonorrhea, Rectal Swab ([place] DPH) (09/03/2024) Chlamydia Rectal Swab Negative Negative, Indeterminate, None Detected, Invalid, Specimen unsatisfactory for evaluation, 2+ Gonorrhea Rectal Swab Negative Negative, Indeterminate, None Detected, Invalid, Specimen unsatisfactory for evaluation, 2+ Swab 09/03/2024 Result [facility] Provider LAB MICROBIOLOGY - GENERA L ORDERABLES Final Result * Chlamydia/Gonorrhea Throat Swab ([place] DPH) (09/03/2024) Chlamydia Throat Swab Negative Gonorrhea Throat Swab Negative Swab 09/03/2024 Result [facility] Provider LAB MICROBIOLOGY - GENERA L ORDERABLES Final Result * Chlamydia/Gonorrhea, Urine ([place] DPH) (09/03/2024) Chlamydia, Urine Negative Negative, Indeterminate, None Detected, Invalid, Specimen unsatisfactory for evaluation, Weakly Positive, 2+ Gonorrhea, Urine Negative Negative, Indeterminate, None Detected, Invalid, Specimen unsatisfactory for evaluation, Weakly Positive, 2+ Urine 09/03/2024 Result [facility] Historical Provider LAB URINE ORDERABLES Nona l Result * Syphilis Antibodies (DPH) (09/03/2024) Syphilis Abs Nonreactive Borderline, Nonreactive, Weakly Reactive, Inconclusive, Specimen unsatisfactory for evaluation Blood Venous blood specimen / Unknown 09/03/2024 Result [facility] Historical Provider LAB BLOOD ORDERABLES Nona l Result * Hepatitis C Antibody ([place] DPH) (09/03/2024) Hepatitis C Ab Nonreactive Blood 09/03/2024 Historical Provider MD LAB BLOOD ORDERABLES Nona l Result * HIV Ab/Ag (HAIM DP) (09/03/2024) HIV Ag/Ab Nonreactive Blood 09/03/2024 Historical Provider MD LAB BLOOD ORDERABLES Nona l Result * (ABNORMAL) Lipid Panel, Standard (07/20/2023 2:38 PM EDT) Triglycerides 103 <150 mg/dL [facility] Comment:Desirable Triglyceri de: less than 150 mg/dLBorderline High Triglyceride 150-199 mg/dLHigh Triglyceride: 200-499 mg/dLVery High Triglyceride: greater than or equal to 5OO mg/dL Cholesterol 117 <200 mg/dL [facility] Comment:Desirable Cholestero l: less than 200 mg/dLBorderline High Cholesterol: 200-239 mg/dLHigh Cholesterol: greater than 239 mg/dL LDL Cholesterol Calculated 57 <100 mg/dL [facility] Comment:Desirable LDL: less than 100 mg/dLNear Optimal/Above Optimal LDL: 110- 129 mg/dLBorderline High LDL: 130-159 mg/dLHigh LDL: 160-189 mg/dLVery High LDL: greater than or equal to 190 mg/dL HDL Cholesterol 40(L) >40 mg/dL [facility] Comment:Desirable HDL: great er than 40 mg/dL Note: This HDL assay may give artificially low results in patients with liver disease. Blood Venous blood specimen / Unknown 07/20/2023 2:38 PM EDT 07/20/2023 4:41 PM EDT Nikki Bower MD LAB BLOOD ORDERABLES Final Result [facility] [address] [place] [phone] [phone] from Last 3 Months or Most Recently Relevant to Health Maintenance Additional Health Concerns Active Problems Noted Date Diagnosed Date Adjustment disorder with depressed mood 06/01/19 23 Insurance [facility] C3 Care Teams Public Information Director Relationship Specialty Start Date End Date Nikki Baker MD [address] [place] [phone] PCP - General Family Medicine 07/21/18
--- OUTSIDE RECORDS SUMMARY | 2024-11-16 14:33 | XMS_ITS | Clinical Summary ---
Author Organization [facility] Address [address] [place] [phone] Phone Care Team Providers Care Escalator Operator Name Role Phone Nikki Baker MD Primary [...] 01/24/2022 Social Influencers of Health Screening 01/24/2022 Depression Screening 02/22/2024 COVID-19 Vaccine ( season) 2024 Influenza Vaccine (#1) 2024 , 12/18/2012, 12/05/2001 Cholesterol Screening (Lipid Panel) 07/19/2028 07/20/2023 DTaP,Tdap,and Td Vaccines (9 - Td or Tdap) 06/09/2030 06/09/2020, 10/10/2011, 10/12/2005, Additional history exists RSV Immunization Adult Patients (1 - 1-dose 75+ series) 07/24/2067 HIB Vaccines Completed 03/09/1994, 0 02/1993, 1992, Additional history exists IPV Vaccines Completed 07/12/1997, 0 02/1993, 1992, Additional history exists MMR Vaccines [...] topic Insurance MEDICAID - [place] Care Teams Escalator Operator Relationship Specialty Start Date End Date Nikki Baker MD [address] [facility] [address] [place] [phone] PCP - General Internal Medicine 01/10/24
--- OUTSIDE RECORDS SUMMARY | 2024-11-16 14:33 | XMS_ITS | Encounter Summary ---
Author Organization [employer] Address [address] [facility] 7t [place] [address] Care Team Providers Care Engineering Systems Analyst Name Role Phone Nikki Baker MD Primary Care Provide r Reason for Visit * Reason Onset Date Comments Appointment Request 03/29/2024 Encounter Details Date Type Department Care Team ([facility] Contact Info) Description 03/29/2024 Telephone [facility] [address] [place], [place] [phone] Nikki Baker MD [address] [place], [place] [phone] Appointment Request Social History Tobacco Use Types [...] PCP to follow up on chronic conditions. Wildlife Ecologist advise pt he is on a recall for June. Pt scheduled for ER follow up/Sick visit on 04/02/24 with Lilli but would still like to schedule a follow up with PCP. Wildlife Ecologist advise will send a message to medical officer. Contact pt at [phone] documented in this encounter Plan of Treatment Upcoming Encounters Date Type Department Care Team ([facility] st Contact Info) Description 11/27/2024 1:45 PM EDT Office Visit [facility] [address] [place] [address] Jyoti Joshi CNP [address] [place] [address] documented as of this encounter Visit Diagnoses Not on filedocumented in this encounter Additional Health Concerns Active Problems Noted Date Diagnosed Date Adjustment disorder with depressed mood 06/01/19 23 Assessment Noted Time PHQ-9 Depression Total Score: 0 09/02/19 24 11:42 AM EDT documented as of this encounter Care Teams Engineering Systems Analyst Relationship Specialty Start Date End Date Nikki Baker MD [address] [place] [address] PCP - General Family Medicine 07/21/18 documented as of this encounter
--- OUTSIDE RECORDS SUMMARY | 2024-11-16 14:33 | XMS_ITS | Encounter Summary ---
Author Organization [employer] Address [address] [facility] [address] [place] [address] Care Team Providers Care Assembler Movement Name Role Phone Nikki Baker MD Primary Care Provide r Encounter Details Date Type Department Care Team ([facility] st Contact Info) Description 11/16/2024 Orders Only [facility] [address] [place], [place] [phone] Nikki Baker MD [address] [place], [place] [phone] Pre-operative clearance (Primary Dx) Social History Tobacco Use Types [...] Upcoming Encounters Date Type Department Care Team ([facility] st Contact Info) Description 11/27/2024 1:45 PM EDT Office Visit [facility] & [facility] [address] [place] [address] Jyoti Joshi, DECONTAMINATION TECHNICIAN [address] [place] [address] Scheduled Orders Name Type Priority Associated Diagnoses Orde r Schedule Comprehensive Metabolic Panel Lab Routine Pre-operative clearance Expected: 11/16/2024 (Approximate), Expires: 11/16/2025 Hepatic Function Panel Lab Routine Pre-operative clearance Expected: 11/16/2024 (Approximate), Expires: 11/16/2025 CBC auto differential Lab Routine Pre-operative clearance Expected: 11/16/2024 (Approximate), Expires: 11/16/2025 HIV-1 RNA, Quantitative, Real-Time PCR Lab Routine Pre-operative clearance Expected: 11/16/2024 (Approximate), Expires: 11/16/2025 Prothrombin Time-INR Lab Routine Pre-operative clearance Expected: 11/16/2024 (Approximate), Expires: 11/16/2025 documented as of this encounter Visit Diagnoses Diagnosis Pre-operative clearance- Primary Unspecified pre-operative examination documented in this encounter Additional Health Concerns Active Problems Noted Date Diagnosed Date Adjustment disorder with depressed mood 06/01/19 23 Assessment Noted Time PHQ-9 Depression Total Score: 0 09/02/19 24 11:42 AM EDT documented as of this encounter Care Teams Assembler Movement Relationship Specialty Start Date End Date Nikki Baker MD [address] [place] [address] PCP - General Family Medicine 07/21/18 documented as of this encounter
--- OUTSIDE RECORDS SUMMARY | 2024-11-16 14:33 | XMS_ITS | Encounter Summary ---
Author Organization [employer] Address [address] [place] [address] [address] [place] [address] Care Team Providers Care Surveillance Systems Engineer Name Role Phone Nikki Baker MD Primary Care Provide r Encounter Details Date Type Department Care Team ([facility] Contact Info) Description 03/29/2022 [facility] [employer] [address] [place] [address] Nikki Baker MD [address] [place] [address] Social History Tobacco Use Types Packs/Day Years [...] Upcoming Encounters Date Type Department Care Team ([facility] Contact Info) Description 11/27/2024 1:45 PM EDT Office Visit [facility]S [address] [place] [address] Jyoti Joshi CNP [address] [place], [place] [phone] documented as of this encounter Visit Diagnoses Not on filedocumented in this encounter Care Teams Surveillance Systems Engineer Relationship Specialty Start Date End Date Nikki Baker MD [address] [place] [address] PCP - General Family Medicine 07/21/18 documented as of this encounter
--- OUTSIDE RECORDS SUMMARY | 2024-11-16 14:33 | XMS_ITS | Encounter Summary ---
Author Organization [employer] Address [address] [facility] 7t [place] [address] Care Team Providers Care Sane Rn Name Role Phone Nikki Baker MD Primary Care Provide r Reason for Visit * Reason Comments Med Refill Encounter Details Date Type Department Care Team ([facility] st Contact Info) Description 05/22/2023 Refill [facility] [address] [place], [place] [phone] Bettye Hsu DO [address] [place], [place] [phone] Screening for STD (sexually transmitted disease) Social [...] Description 11/27/2024 1:45 PM EDT Office Visit [facility] MED & PEDS [address] [place], [place] [phone] Jyoti Joshi, JUAN [address] [place] [address] documented as of this encounter Visit Diagnoses Diagnosis Screening for STD (sexually transmitted disease) documented in this encounter Additional Health Concerns Active Problems Noted Date Diagnosed Date Adjustment disorder with depressed mood 06/01/19 23 Assessment Noted Time PHQ-9 Depression Total Score: 21 023 1:27 PM EDT documented as of this encounter Care Teams Sane Rn Relationship Specialty Start Date End Date Nikki Baker MD [address] [place] [address] PCP - General Family Medicine 07/21/18 documented as of this encounter
[2024-11-16 16:04] LABS: MANUAL DIFF FLAG NO
[2024-11-16 16:12] LABS: Hematocrit 45.9 % (42.0-52.0); Hemoglobin 14.8 g/dl (14.0-18.0); Imm Gran Abs Auto 0.05 X10*3/uL (0.00-0.03); Imm Gran Pct Auto 0.5 % (0.0-0.4); Lymphocytes Absolute Auto 4.2 X10*3/uL (1.2-4.9); Mean Corpuscular HGB Conc 32.2 g/dl (31.0-36.0); Mean Corpuscular Hemoglobin 26.8 pg (27.0-33.0); Mean Corpuscular Volume 83.2 fL (80.0-98.0); NRBC Abs Auto 0.000 X10*3/uL (0.0-0.012); NRBC Pct Auto 0.0 /100WBC (0.0-0.2); Platelet Count 282 X10*3/uL (160-400); Red Blood Count 5.52 X10*6/uL (4.60-5.80); White Blood Count 10.6 X10*3/uL (4.8-10.8)
[2024-11-16 16:23] LABS: Alanine Aminotransferase 36 U/L (0-40); Albumin Level 4.6 g/dL (3.5-5.0); Alkaline Phosphatase 109 U/L (39-117); Anion Gap 12 (12-20); Aspartate Amino Transferase 34 U/L (5-37); Blood Urea Nitrogen 10 mg/dL (9-16); Calcium 9.5 mg/dL (8.4-10.2); Carbon Dioxide 27 mmol/L (22-29); Chloride 106 mmol/L (96-108); Estimated Glomerular Filt Rate > 60; Potassium 4.0 mmol/L (3.3-5.1); Sodium 141 mmol/L (135-145); Total Protein 7.6 g/dL (6.5-8.0)
[2024-11-16 16:43] LABS: INTERNATIONAL NORM RATIO 1.0 (0.9-1.1); Prothrombin Time 11.5 SEC (10.9-12.4)
[2024-11-19 04:22] LABS: ~HepC Num1 0.13 S/CO (0.00-0.79); ~Hepatitis C Antibody Nonreactive (Nonreactive)
[2024-11-19 14:09] LABS: HIV RNA PCR Qn Copies NOT DETECTED copies/mL (NOT DETECTED); HIV RNA PCR Qn Log Copies NOT DETECTED (NOT DETECTED)
== END 2024-11-16 13:17 | disposition home or self-care (01) ==
LOC: HO.HHCL 13:16
PROVIDERS: PCP Internal Medicine; Referring Provider Pediatrics; Visit Provider Internal Medicine
DX: Z01.818 Encounter for other preprocedural examination (principal); Z11.4 Encounter for screening for human immunodeficiency virus [HIV]; Z11.59 Encounter for screening for other viral diseases
CPT/HCPCS: 36415; 80053; 82248; 85025; 85610; 86803; 87536

== ENCOUNTER 2024-11-26 15:16 | Outpatient (REF) | payer MEDICAID, SELFPAY ==
[2024-11-26 16:23] LABS: Partial Thromboplastin Time 27.7 SEC (26.7-34.1)
--- OUTSIDE RECORDS SUMMARY | 2024-11-26 17:37 | XMS_ITS | Encounter Summary ---
Author Organization [employer] Address [address] [place] [address] [address] [place] [address] Care Team Providers Care Box Worker Name Role Phone Nikki Baker MD Primary Care Provide r Encounter Details Date Type Department Care Team ([facility] Contact Info) Description 03/29/2022 [facility] [employer] [address] [place] [address] Nikki Baker MD [address] [place] [address] Social History Tobacco Use Types Packs/Day Years [...] Upcoming Encounters Date Type Department Care Team ([facility] Contact Info) Description 11/27/2024 1:45 PM EDT Office Visit [facility] & PEDS [address] [place] [address] Jyoti Joshi CNP [address] [place], [place] [phone] documented as of this encounter Visit Diagnoses Not on filedocumented in this encounter Care Teams Box Worker Relationship Specialty Start Date End Date Nikki Baker MD [address] [place] [address] PCP - General Family Medicine 07/21/18 documented as of this encounter
--- OUTSIDE RECORDS SUMMARY | 2024-11-26 17:37 | XMS_ITS | Clinical Summary ---
Author Organization [email or web address] Address [address] [facility] 7[address] [place] [address] Care Team Providers Care Data Reporting Analyst Name Role Phone Nikki Baker MD [...] disorder 05/01/2022 Epigastric pain 05/16/2018 Depression, major, recurrent , severe with psychosis (CMS/[facility]) 10/24/2014 Hand pain 10/24/2014 Binocular vision disorder [...] Encounters Date Type Department Care Team Description 11/26/2024 Orders Only [facility] MEDICINE [address] [place] [phone] Nikki Baker MD Preoperative clearance (Primary Dx) 11/22/2024 Telephone [facility] MEDICINE [address] [place] [phone] Nikki Baker MD Results 11/16/2024 Orders Only [facility] MEDICINE [address] [place] [address] [phone] Nikki Baker MD Pre-operative clearance (Primary Dx) 11/09/2024 Telephone [facility] CHC MED & PEDS [address] [place], [place] [phone] Nikki Baker MD chart prep 11/06/2024 Telephone [facility] MEDICINE [address] [place] [address] Nikki Baker MD Pre-op Visit 11/05/[address] [phone] Nikki Baker MD Pre-op Visit 09/24/2024 Orders Only [facility] MEDICINE [address] [place] [phone] Екатерина Berg RN Exposure to human immunodeficiency virus 09/10/2024 Orders Only [facility] MEDICINE [address] [place] [phone] Екатерина Berg RN 09/04/2024 Telephone [facility] WALK-IN CENTER [address] [place] [phone] Mee Alejandro MD 09/03/2024 4:20 PM EDT Office Visit [facility] WALK-IN CENTER [address] [place] [phone] Mee Alejandro MD Exposure to human immunodeficiency virus (Primary Dx); On pre-exposure prophylaxis for HIV 09/03/2024 Travel from Last 3 Months Immunizations Immunization Administration Dates Next Due DTP 07/12/1997, 5,07/22/1993,11/22,1992 Hep B, Adolescent or Pediatric 07/22/1993,1992,1992 HepB-CpG 03/03/2023 04/01/2023 Hib ([facility]) 03/09/1994, 4,1992,09/23 IPV 07/12/1997, 4,1992,09/23 Influenza injectable [...] Upcoming Encounters Date Type Department Care Team ([facility] st Contact Info) Description 11/27/2024 1:45 PM EDT Office Visit [facility] CH[facility] MED & PEDS [address] [facility] [place] [address] Adi Moekassieleon, [employer] [address] [place] [address] Health Maintenance Due Date Last Done Comments Disability Screening 1992 Alcohol/Substance Use Screening 2004 Family Planning (PISQ) 07/24/2007 HPV Vaccines (1 - Male 3-dose series) 07/24/2007 Pneumococcal Vaccine: Pediatrics (0 to 5 Years) and At-Risk Patients (6 to 49) Years (2 of 2 - PCV) 08/12/2013 08/12/2012 Depression Screening 09/01/2024 09/02/2023, 09/02/19 24 SDOH Screening 09/01/2024 09/02/2023 COVID-19 Vaccine (3 - season) 2024 10/30/2020, 10/09/2020 Influenza Vaccine [...] 1992, Additional history exists HIV Screening Completed 11/16/2024, 080 05/2024, 09/03/2024, Additional history exists Hepatitis C Screening Completed 11/16/2024 , 09/24/2024, 09/03/2024, Additional history exists Hepatitis A Vaccines Aged [...] Procedure Name Priority Date/Time Associated Diagnosis Comments APTT Routine 11/26/2024 3:22 PM EDT Preoperative clearance HEPATITIS C AB W/REFL TO HCV RNA, QN, PCR Routine 11/16/2024 1:41 PM EDT Pre-operative clearance PROTHROMBIN TIME-INR Routine 11/16/2024 1:25 PM EDT Pre-operative clearance HIV 1 RNA, QUANTITATIVE REAL TIME PCR Routine 11/16/2024 1:25 PM EDT Pre-operative clearance CBC WITH AUTO DIFFERENTIAL Routine 11/16/2024 1:25 PM EDT Pre-operative clearance HEPATIC FUNCTION PANEL Routine 11/16/2024 1:25 PM EDT Pre-operative clearance COMPREHENSIVE METABOLIC PANEL Routine 11/16/2024 1:25 PM EDT Pre-operative clearance SYPHILIS SCREEN Routine 09/24/2024 11:33 AM EDT [...] immunodeficiency virus UREA NITROGEN (BUN) Routine 09/24/2024 1 1:33 AM EDT Exposure to human immunodeficiency virus HIV ANTIBODY/ANTIGEN ([place] [facility]) Routine 09/03/2024 HEPATITIS C ANTIBODY ([place] [facility]) Routine 09/03/2024 SYPHILIS ABS ([place] [facility]) Routine 09/03/2024 CHLAMYDIA/GONORRHEA - URINE ([place] [facility]) Routine 09/03/2024 CHLAMYDIA/GONORRHEA RECTAL SWAB ([place] [facility]) Routine 09/03/2024 CHLAMYDIA/GONORRHEA THROAT SWAB ([place] [facility]) Routine 09/03/2024 LIPID PANEL, STANDARD Routine 07/20/2023 2:38 PM EDT Fatigue, unspecified type from Last 3 Months or Most Recently Relevant to Health Maintenance Results * Partial Thromboplastin Time, Activated (APTT) (11/26/2024 3:22 PM EDT) Partial Thromboplastin Time 27.7 26.7 - 34.1 SEC [facility] Blood Venous blood specimen / Unknown 11/26/2024 3:22 PM EDT 11/26/2024 4:00 PM EDT us Nikki Bower MD LAB BLOOD ORDERABLES Final Result [facility] [address] [place] [phone] * Hepatitis C Antibody with Reflex to HCV, RNA, Quantitative, Real-Time PCR (11/16/2024 1:41 PM EDT) Only the most recent of2 resultswithin the time period is included. Pathologist [facility] Hepatitis C Antibody Nonreactive Nonreactive [facility] Comment:Antibodies to HCV no t detected; does not exclude early acuteHCV infection. 11/16/2024 1:41 PM EDT 11/16/2024 3:57 PM EDT Nikki Bower MD LAB BLOOD ORDERABLES Final Result [facility] [address] [place] [address] [phone] * (ABNORMAL) CBC auto differential (11/16/2024 1:25 PM EDT) Pathologist [facility] White Blood Count 10.6 4.8 - 10.8 X10*3/uL [facility] Red Blood Count 5.52 4.60 - 5.80 X10*6/uL [facility] Hemoglobin 14.8 14.0 - 18.0 g/dl [facility] Hematocrit 45.9 42.0 - 52.0 % [facility] Mean Corpuscular Volume 83.2 80.0 - 98.0 fL [facility] Mean Corpuscular Hemoglobin 26.8(L) 27.0 - 33.0 pg [facility] Mean Corpuscular HGB Conc 32.2 31.0 - 36.0 g/dl [facility] Red Cell Distribution Width 14.5 11.0 - 16.0 % [facility] Platelet Count 282 160 - 400 X10*3/uL [facility] Mean Platelet Volume 11.5 9.4 - 12.4 fL [facility] Neutrophils Percent Auto 52.7 45 - 73 % [facility] Imm Gran Pct Auto 0.5(H) 0.0 - 0.4 % [facility] Lymphocytes Percent Auto 39.7 20 - 40 % [facility] Monocytes Percent Auto 5.8 2 - 11 % [facility] Eosinophils Percent Auto 0.7 0 - 4 % [facility] Basophils Percent Auto 0.6 0 - 2 % [facility] NRBC Pct Auto 0.0 0.0 - 0.2 /100WBC [facility] Neutrophils Absolute Auto 5.6 2.0 - 8.3 x10*3/uL [facility] Imm Gran Abs Auto 0.05(H) 0.00 - 0.03 X10*3/uL [facility] Lymphocytes Absolute Auto 4.2 1.2 - 4.9 X10*3/uL [facility] Monocytes Absolute Auto 0.6 0.1 - 1.2 X10*3/uL [facility] Eosinophils Absolute Auto 0.1 0.0 - 0.4 X10*3/uL [facility] Basophils Absolute Auto 0.1 0.0 - 0.2 X10*3/uL [facility] NRBC Abs Auto 0.000 0.0 - 0.012 X10*3/uL [facility] Blood Venous blood specimen / Unknown 11/16/2024 1:25 PM EDT 11/16/2024 3:57 PM EDT Nikki Bower MD LAB BLOOD ORDERABLES Final Result [facility] [address] [place] [phone] [phone] * HIV-1 RNA, Quantitative, Real-Time PCR (11/16/2024 1:25 PM EDT) HIV RNA PCR Qn Copies NOT DETECTED NOT DETECTED copies/mL [facility] HIV RNA PCR Qn Log Copies NOT DETECTED NOT DETECTED [facility] Comment:Result Units: Log co pies/mLThis test was performed using Real-Time Polymerase ChainReaction.Reportable Range: 20 copies/mL to 10,000,000 copies/mL(1.30 log copies/mL to 7.00 log copies/mL).THIS TEST WAS PERFORMED AT:[id number] [place] [id number] HANDY MD Blood Venous blood specimen / Unknown 11/16/2024 1:25 PM EDT 11/16/2024 3:57 PM EDT Nikki Bower MD LAB BLOOD ORDERABLES Final Result Performing Organization Address [facility] Co de Phone Number [facility] [address] [place] [phone] * Prothrombin Time-INR (11/16/2024 1:25 PM EDT) Prothrombin Time 11.5 10.9 - 12.4 SEC [facility] INTERNATIONAL NORM RATIO 1.0 0.9 - 1.1 [facility] Comment:INTERNATIONAL NORMAL IZED RATIO (INR) REFERENCE RANGES Reference RangeFor patients not on anticoagulant therapy: 0.9 - 1.1INR ranges for oral anticoagulanttherapy:For prevention and treatment of venous thrombosis and pulmonary embolism: 2.0 - 3.0For acute myocardial infarction with aspirin therapy: 2.0 - 3.0For acute myocardial infarction without aspirin therapy: 3.0 - 4.0For patients with mechanical prosthetic heart valves: 2.5 - 3.5 Blood Venous blood specimen / Unknown 11/16/2024 1:25 PM EDT 11/16/2024 3:57 PM EDT Nikki Bower MD LAB BLOOD ORDERABLES Final Result Performing Organization Address [facility] Co de Phone Number [facility] [address] [place] [phone] * Hepatic Function Panel (11/16/2024 1:25 PM EDT) Bilirubin, Direct 0.2 0.0 - 0.5 mg/dL [facility] Blood Venous blood specimen / Unknown 11/16/2024 1:25 PM EDT 11/16/2024 3:57 PM EDT Nikki Bower MD LAB BLOOD ORDERABLES Final Result Performing Organization Address City/[facility]/ZIP Co de Phone Number [facility] [address] [place] [phone] * Comprehensive Metabolic Panel (11/16/2024 1:25 PM EDT) Sodium 141 135 - 145 mmol/L [facility] Potassium 4.0 3.3 - 5.1 mmol/L [facility] Chloride 106 96 - 108 mmol/L [facility] Carbon Dioxide 27 22 - 29 mmol/L [facility] Anion Gap 12 12 - 20 [facility] Urea Nitrogen (BUN) 10 9 - 16 mg/dL [facility] Creatinine, Serum 1.05 0.5 - 1.4 mg/dL [facility] Estimated Glomerular Filt Rate >60 [facility] Comment:Chronic Kidney Disea se: Estimated GFR < 60 mL/min/[id number] Kidney Disease: Estimated GFR < 15 mL/min/1.73m2 Glucose 80 60 - 115 mg/dL [facility] Calcium 9.5 8.4 - 10.2 mg/dL [facility] Bilirubin, Total 0.5 0.0 - 1.0 mg/dL [facility] Aspartate Amino Transferase 34 5 - 37 U/L [facility] Alanine Aminotransferase 36 0 - 40 U/L [facility] Total Protein 7.6 6.5 - 8.0 g/dL [facility] Albumin Level 4.6 3.5 - 5.0 g/dL [facility] Alkaline Phosphatase 109 39 - 117 U/L [facility] Blood Venous blood specimen / Unknown 11/16/2024 1:25 PM EDT 11/16/2024 3:57 PM EDT us Nikki Bower MD LAB BLOOD ORDERABLES Final Result Performing Organization Address City/[facility]/ZIP Co de Phone Number [facility] [address] [place] [phone] * Syphilis Screen (09/24/2024 11:33 AM EDT) Syphilis Screen Nonreactive Nonreactive [facility] 09/24/2024 11:3 3 AM EDT 09/24/2024 1:17 PM EDT us Nikki Bower MD LAB BLOOD ORDERABLES Final Result Performing Organization Address City/[facility]/ZIP Co de Phone Number [facility] [address] [place] [phone] * Creatinine, Serum (09/24/2024 11:33 AM EDT) Creatinine, Serum 1.10 0.5 - 1.4 mg/dL [facility] Estimated Glomerular Filt Rate >60 [facility] Comment:Chronic Kidney Disea se: Estimated GFR < 60 mL/min/[id number] Kidney Disease: Estimated GFR < 15 mL/min/1.73m2 Blood Venous blood specimen / Unknown 09/24/2024 11:33 AM EDT 09/24/2024 1:17 PM EDT us Mee Alejandro MD LAB BLOOD ORDERABLES Fin al Result Performing Organization Address [facility] Co de Phone Number [facility] [address] [place] [phone] * HIV-1/2 Antigen and Antibodies, Fourth Generation, with Reflexes (09/24/2024 11:33 AM EDT) HIV AB/AG Nonreactive Nonreactive [facility] Comment:HIV-1 p24 Ag and/or HIV-1/HIV-2 Ab not detected.A test result that is nonreactive does not exclude thepossibility of exposure to or infection with HIV-1 and/orHIV-2. Nonreactive results in this assay for individualswith prior exposure to HIV-1 and/or HIV-2 may be due toantigen and antibody levels that are below the limit ofdetection of this assay.The [employer] HIV Ag/Ab Combo assay result andsupplemental assay results should be interpreted inconjunction with the patient's clinical presentation,history and other laboratory results. If the results areinconsistent with clinical evidence, additional testing issuggested to confirm the result. 09/24/2024 11:3 3 AM EDT 09/24/2024 1:17 PM EDT us Nikki Bower MD LAB BLOOD ORDERABLES Final Result Performing Organization Address City/[facility]/ZIP Co de Phone Number [facility] [address] [place] [phone] * BUN (Blood Urea Nitrogen) (09/24/2024 11:33 AM EDT) Urea Nitrogen (BUN) 10 9 - 16 mg/dL [facility] Blood Venous blood specimen / Unknown 09/24/2024 11:33 AM EDT 09/24/2024 1:17 PM EDT Mee Alejandro MD LAB BLOOD ORDERABLES Fin al Result Performing Organization Address City/[facility]/ZIP Co de Phone Number [facility] [address] [place] [phone] * Chlamydia/Gonorrhea, Rectal Swab ([place] [facility]) (09/03/2024) Chlamydia Rectal Swab Negative Negative, Indeterminate, None Detected, Invalid, Specimen unsatisfactory for evaluation, 2+ Gonorrhea Rectal Swab Negative Negative, Indeterminate, None Detected, Invalid, Specimen unsatisfactory for evaluation, 2+ Swab 09/03/2024 Susanne Kulkarni MD LAB MICROBIOLOGY - GENERA L ORDERABLES Final Result * Chlamydia/Gonorrhea Throat Swab ([place] D[facility]) (09/03/2024) Chlamydia Throat Swab Negative Gonorrhea Throat Swab Negative Swab 09/03/2024 Result [facility] MD LAB MICROBIOLOGY - GENERA L ORDERABLES Final Result * Chlamydia/Gonorrhea, Urine ([place] DPH) (09/03/2024) Chlamydia, Urine Negative Negative, Indeterminate, None Detected, Invalid, Specimen unsatisfactory for evaluation, Weakly Positive, 2+ Gonorrhea, Urine Negative Negative, Indeterminate, None Detected, Invalid, Specimen unsatisfactory for evaluation, Weakly Positive, 2+ Urine 09/03/2024 Result [facility] MD LAB URINE ORDERABLES Nona l Result * Syphilis Antibodies (DPH) (09/03/2024) Pathologist [facility] Syphilis Abs Nonreactive Borderline, Nonreactive, Weakly Reactive, Inconclusive, Specimen unsatisfactory for evaluation Blood Venous blood specimen / Unknown 09/03/2024 Result [facility] MD LAB BLOOD ORDERABLES Nona l Result * Hepatitis C Antibody ([place] [facility]) (09/03/2024) Pathologist [facility] Hepatitis C Ab Nonreactive Blood 09/03/2024 Result [facility] MD LAB BLOOD ORDERABLES Nona l Result * HIV Ab/Ag ([place] D[facility]) (09/03/2024) Pathologist [facility] HIV Ag/Ab Nonreactive Blood 09/03/2024 Result [facility] MD LAB BLOOD ORDERABLES Nona l Result * (ABNORMAL) Lipid Panel, Standard (07/20/2023 2:38 PM EDT) Pathologist [facility] Triglycerides 103 <150 mg/dL [facility] Comment:Desirable Triglyceri de: less than 150 mg/dLBorderline High Triglyceride 150-199 mg/dLHigh Triglyceride: 200-499 mg/dLVery High Triglyceride: greater than or equal to 5OO mg/dL Cholesterol 117 <200 mg/dL [facility] Comment:Desirable Cholestero l: less than 200 mg/dLBorderline High Cholesterol: 200-239 mg/dLHigh Cholesterol: greater than 239 mg/dL LDL Cholesterol Calculated 57 <100 mg/dL [facility] Comment:Desirable LDL: less than 100 mg/dLNear Optimal/Above Optimal LDL: 110- 129 mg/dLBorderline High LDL: 130-159 mg/dLHigh LDL: 160-189 mg/dLVery High LDL: greater than or equal to 190 mg/dL HDL Cholesterol 40(L) >40 mg/dL [facility] Comment:Desirable HDL: great er than 40 mg/dL Note: This HDL assay may give artificially low results in patients with liver disease. Blood Venous blood specimen / Unknown 07/20/2023 2:38 PM EDT 07/20/2023 4:41 PM EDT Nikki Bower MD LAB BLOOD ORDERABLES Final Result [facility] [address] [place] [phone] from Last 3 Months or Most Recently Relevant to Health Maintenance Additional Health Concerns Active Problems Noted Date Diagnosed Date Adjustment disorder with depressed mood 06/01/19 23 Insurance [facility] C3 Care Teams Data Reporting Analyst Relationship Specialty Start Date End Date Nikki Baker MD [address] [place] [phone] PCP - General Family Medicine 07/21/18
--- OUTSIDE RECORDS SUMMARY | 2024-11-26 17:37 | XMS_ITS | Encounter Summary ---
Author Organization [employer] Address [address] [facility] [address] [place] [address] Care Team Providers Care School Based Therapist Name Role Phone Nikki Baker MD Primary Care Provide r Reason for Visit * Reason Onset Date Comments Referral 09/02/2023 Encounter Details Date Type Department Care Team ([facility] Contact Info) Description 09/02/2023 Telephone [facility] MEDICINE [address] [place], [place] [phone] Nikki Baker MD [address] [place] [address] Referral Social History Tobacco Use Types Packs/Day [...] energy Not at all 09/02/2023 11:42 AM Wyatt Dozier [place] Poor appetite or overeating Not [...] from pt requesting to be referred to [facility] - Weight Management - [address], [place] [address] , states [facility] is no longer accepting new patients. Please contact at [phone] * Telephone Encounter - Marie Trevizo RN - 09/02/2023 12:49 PM EDT Bariatric surgery referral placed today, pt. Requesting location in [facility] * Telephone Encounter - Zari Perez - 09/02/2023 12:39 PM EDT Tc from pt calling requesting a different location on bariatric referral, stated [place] [facility] take [facility] and he will like to be seen on [place]. documented in this encounter Plan of Treatment Upcoming Encounters Date Type Department Care Team (Late st Contact Info) Description 11/27/2024 1:45 PM EDT Office Visit [facility] CH[facility] MED & PEDS [address] [place] [address] Jyoti Joshi, JUAN [address] [place] [address] documented as of this encounter Visit Diagnoses Not on filedocumented in this encounter Additional Health Concerns Active Problems Noted Date Diagnosed Date Adjustment disorder with depressed mood 06/01/19 23 Assessment Noted Time PHQ-9 Depression Total Score: 0 09/02/19 24 11:42 AM EDT documented as of this encounter Care Teams School Based Therapist Relationship Specialty Start Date End Date Nikki Baker MD [address] [place] [address] PCP - General Family Medicine 07/21/18 documented as of this encounter
--- OUTSIDE RECORDS SUMMARY | 2024-11-26 17:37 | XMS_ITS | Encounter Summary ---
Author Organization [employer] Address [address] [place] [address] Care Team Providers Care Environmental Protection Inspector Name Role Phone Nikki Baker MD Primary Care Provide r Encounter Details Date Type Department Care Team ([facility] st Contact Info) Description 11/16/2024 Orders Only [facility] MED[facility]INE [address] [place], [place] [phone] Nikki Baker MD [address] [place], [place] [phone] Pre-operative clearance (Primary Dx) Social History Tobacco [...] Upcoming Encounters Date Type Department Care Team ([facility] st Contact Info) Description 11/27/2024 1:45 PM EDT Office Visit [facility] MED & PEDS [address] [place] [address] Jyoti Joshi, PROCUREMENT MANAGER [address] [place] [address] documented as of this encounter Procedures Procedure Name Priority Date/Time Associated Diagnosis Comments HEPATITIS C AB W/REFL TO HCV RNA, QN, PCR Routine 11/16/2024 1:41 PM EDT Pre-operative clearance CBC WITH AUTO DIFFERENTIAL Routine 11/16/2024 1:25 PM EDT Pre-operative clearance HIV 1 RNA, QUANTITATIVE REAL TIME PCR Routine 11/16/2024 1:25 PM EDT Pre-operative clearance PROTHROMBIN TIME-INR Routine 11/16/2024 1:25 PM EDT Pre-operative clearance HEPATIC FUNCTION PANEL Routine 1:25 PM EDT Pre-operative clearance COMPREHENSIVE METABOLIC PANEL Routine 11/16/2024 1:25 PM EDT Pre-operative clearance documented in this encounter Results * Hepatitis C Antibody with Reflex to HCV, RNA, Quantitative, Real-Time PCR (11/16/2024 1:41 PM EDT) Pathologist [facility] Hepatitis C Antibody Nonreactive Nonreactive [facility] Comment:Antibodies to HCV no t detected; does not exclude early acuteHCV infection. 11/16/2024 1:41 PM EDT 11/16/2024 3:57 PM EDT Nikki Bower MD LAB BLOOD ORDERABLES Final Result Performing Organization Address [facility] Co de Phone Number [facility] [address] [place] [address] [phone] * Prothrombin Time-INR (11/16/2024 1:25 PM EDT) [facility] Prothrombin Time 11.5 10.9 - 12.4 SEC [facility] INTERNATIONAL NORM RATIO 1.0 0.9 - 1.1 [facility] Comment:INTERNATIONAL NORMAL IZED RATIO (INR) [...] BLOOD ORDERABLES Final Result Performing Organization Address [facility] Co de Phone Number [facility] [address] [place] [phone] * HIV-1 RNA, Quantitative, Real-Time PCR (11/16/2024 1:25 PM EDT) Pathologist [facility] HIV RNA PCR Qn Copies NOT DETECTED NOT DETECTED copies/mL [facility] HIV RNA PCR Qn Log Copies NOT DETECTED NOT DETECTED [facility] Comment:Result Units: Log co pies/mLThis test was performed using Real-Time Polymerase ChainReaction.Reportable Range: 20 copies/mL to 10,000,000 copies/mL(1.30 log copies/mL to 7.00 log copies/mL).THIS TEST WAS PERFORMED AT:[email or web address] [place] [phone] HANDY MD Blood Venous blood specimen / Unknown 11/16/2024 1:25 PM EDT 11/16/2024 3:57 PM EDT us Nikki Bower MD LAB BLOOD ORDERABLES Final Result [facility] [address] [place] [phone] * (ABNORMAL) CBC auto differential (11/16/2024 1:25 PM EDT) White Blood Count 10.6 4.8 - 10.8 X10*3/uL [facility] Red Blood Count 5.52 4.60 - 5.80 X10*6/uL [facility] Hemoglobin 14.8 14.0 - 18.0 g/dl [facility] Hematocrit 45.9 42.0 - 52.0 % [facility] Mean Corpuscular Volume 83.2 80.0 - 98.0 fL [facility] Mean Corpuscular Hemoglobin 26.8(L) 27.0 - 33.0 pg [facility] Mean Corpuscular HGB Conc 32.2 31.0 - 36.0 g/dl [facility] Red Cell Distribution Width 14.5 11.0 - 16.0 % [facility] Platelet Count 282 160 - 400 X10*3/uL [facility] Mean Platelet Volume 11.5 9.4 - 12.4 fL [facility] Neutrophils Percent Auto 52.7 45 - 73 % [facility] Imm Gran Pct Auto 0.5(H) 0.0 - 0.4 % [facility] Lymphocytes Percent Auto 39.7 20 - 40 % [facility] Monocytes Percent Auto 5.8 2 - 11 % [facility] Eosinophils Percent Auto 0.7 0 - 4 % [facility] Basophils Percent Auto 0.6 0 - 2 % [facility] NRBC Pct Auto 0.0 0.0 - 0.2 /100WBC [facility] Neutrophils Absolute Auto 5.6 2.0 - 8.3 x10*3/uL [facility] Imm Gran Abs Auto 0.05(H) 0.00 - 0.03 X10*3/uL [facility] Lymphocytes Absolute Auto 4.2 1.2 - 4.9 X10*3/uL [facility] Monocytes Absolute Auto 0.6 0.1 - 1.2 X10*3/uL [facility] Eosinophils Absolute Auto 0.1 0.0 - 0.4 X10*3/uL [facility] Basophils Absolute Auto 0.1 0.0 - 0.2 X10*3/uL [facility] NRBC Abs Auto 0.000 0.0 - 0.012 X10*3/uL [facility] Blood Venous blood specimen / Unknown 11/16/2024 1:25 PM EDT 11/16/2024 3:57 PM EDT Nikki Bower MD LAB BLOOD ORDERABLES Final Result [facility] [address] [place] [phone] * Hepatic Function Panel (11/16/2024 1:25 PM EDT) Bilirubin, Direct 0.2 0.0 - 0.5 mg/dL [facility] Blood Venous blood specimen / Unknown 11/16/2024 1:25 PM EDT 11/16/2024 3:57 PM EDT us Nikki Bower MD LAB BLOOD ORDERABLES Final Result Performing Organization Address City/[facility]/ZIP Co de Phone Number [facility] [address] [place] [phone] * Comprehensive Metabolic Panel (11/16/2024 1:25 PM EDT) Sodium 141 135 - 145 mmol/L [facility] Potassium 4.0 3.3 - 5.1 mmol/L [facility] Chloride 106 96 - 108 mmol/L [facility] Carbon Dioxide 27 22 - 29 mmol/L [facility] Anion Gap 12 12 - 20 [facility] Urea Nitrogen (BUN) 10 9 - 16 mg/dL [facility] Creatinine, Serum 1.05 0.5 - 1.4 mg/dL [facility] Estimated Glomerular Filt Rate >60 [facility] Comment:Chronic Kidney Disea se: Estimated GFR < 60 mL/min/1.05z5Ofbhkc Kidney Disease: Estimated GFR < 15 mL/min/1.73m2 Glucose 80 60 - 115 mg/dL [facility] Calcium 9.5 8.4 - 10.2 mg/dL [facility] Bilirubin, Total 0.5 0.0 - 1.0 mg/dL [facility] Aspartate Amino Transferase 34 5 - 37 U/L [facility] Alanine Aminotransferase 36 0 - 40 U/L [facility] Total Protein 7.6 6.5 - 8.0 g/dL [facility] Albumin Level 4.6 3.5 - 5.0 g/dL [facility] Alkaline Phosphatase 109 39 - 117 U/L [facility] Blood Venous blood specimen / Unknown 11/16/2024 1:25 PM EDT 11/16/2024 3:57 PM EDT us Nikki Bower MD LAB BLOOD ORDERABLES Final Result [facility] [address] [place] [phone] documented in this encounter Visit Diagnoses Diagnosis Pre-operative clearance- Primary Unspecified pre-operative examination documented in this encounter Additional Health Concerns Active Problems Noted Date Diagnosed Date Adjustment disorder with depressed mood 06/01/19 23 Assessment Noted Time PHQ-9 Depression Total Score: 0 09/02/19 24 11:42 AM EDT documented as of this encounter Care Teams Environmental Protection Inspector Relationship Specialty Start Date End Date Nikki Baker MD [address] [place] [phone] PCP - General Family Medicine 07/21/18 documented as of this encounter
--- OUTSIDE RECORDS SUMMARY | 2024-11-26 17:37 | XMS_ITS | Encounter Summary ---
Author Organization [employer] Address [address] [facility] 7t [place] [address] Care Team Providers Care Plastic Tile Setter Name Role Phone Nikki Baker MD Primary Care Provide r Reason for Visit * Reason Comments Med Refill Encounter Details Date Type Department Care Team ([facility] st Contact Info) Description 05/22/2023 Refill [facility] MEDICINE [address] [place], [place] [phone] Bettye Hsu DO [address] [place], [place] [phone] Screening for STD (sexually transmitted disease) Social [...] Description 11/27/2024 1:45 PM EDT Office Visit [facility] MED & PEDS [address] [place], [place] [phone] Jyoti Joshi, JUAN [address] [place] [address] documented as of this encounter Visit Diagnoses Diagnosis Screening for STD (sexually transmitted disease) documented in this encounter Additional Health Concerns Active Problems Noted Date Diagnosed Date Adjustment disorder with depressed mood 06/01/19 23 Assessment Noted Time PHQ-9 Depression Total Score: 21 023 1:27 PM EDT documented as of this encounter Care Teams Plastic Tile Setter Relationship Specialty Start Date End Date Nikki Baker MD [address] [place] [address] PCP - General Family Medicine 07/21/18 documented as of this encounter
--- OUTSIDE RECORDS SUMMARY | 2024-11-26 17:37 | XMS_ITS | Encounter Summary ---
Author Organization [employer] Address [address] [facility] 7[address] [place] [address] Care Team Providers Care Overhead Cleaner Name Role Phone Nikki Baker MD Primary Care Provide r Reason for Visit * Reason Onset Date Comments Results 11/22/2024 Encounter Details Date Type Department Care Team ([facility] Contact Info) Description 11/22/2024 Telephone [facility]INE [address] [place], [place] [phone] Nikki Baker MD [address] [place] [address] Results Social History Tobacco Use Types Packs/Day Years [...] is your housing situation today? I have rejisocrates garcia 09/02/[address] you [...] encounter Miscellaneous Notes * Telephone Encounter - Marie Trevizo RN - 11/22/2024 10:24 AM EDT TC returned to pt. And advised all bloodwork from 11/16/24 returned stable. Pt. Verbalizes understanding * Telephone Encounter - Ankit Martinez - 11/22/2024 9:08 AM EDT TC from pt requesting call back regarding Results. Type of results: lab results Date when done: 11/16 Facility: [facility] Contact pt at [phone] documented in this encounter Plan of Treatment Upcoming Encounters Date Type Department Care Team (Late st Contact Info) Description 11/27/2024 1:45 PM EDT Office Visit [facility] MED & PEDS [address] [place], [place] [phone] Jyoti Joshi CNP [address] [place], [place] [phone] documented as of this encounter Visit Diagnoses Not on filedocumented in this encounter Additional Health Concerns Active Problems Noted Date Diagnosed Date Adjustment disorder with depressed mood 06/01/19 23 Assessment Noted Time PHQ-9 Depression Total Score: 0 09/02/19 24 11:42 AM EDT documented as of this encounter Care Teams Overhead Cleaner Relationship Specialty Start Date End Date Nikki Baker MD [address] [place] [address] PCP - General Family Medicine 07/21/18 documented as of this encounter
--- OUTSIDE RECORDS SUMMARY | 2024-11-26 17:37 | XMS_ITS | Encounter Summary ---
Author Organization [employer] Address [address] [facility] 7t [place] [address] Care Team Providers Care Hyster Driver Name Role Phone Nikki Baker MD Primary Care Provide r Reason for Visit * Reason Onset Date Comments Appointment Request 03/29/2024 Encounter Details Date Type Department Care Team ([facility] Contact Info) Description 03/29/2024 Telephone [facility] MEDICINE [address] [place], [place] [phone] Nikki Baker MD [address] [place], [place] [phone] Appointment Request Social History Tobacco Use Types [...] PCP to follow up on chronic conditions. Shipping Processor advise pt he is on a recall for June. Pt scheduled for ER follow up/Sick visit on 04/02/24 with Lilli but would still like to schedule a follow up with PCP. Shipping Processor advise will send a message to medical staff manager. Contact pt at [phone] documented in this encounter Plan of Treatment Upcoming Encounters Date Type Department Care Team ([facility] st Contact Info) Description 11/27/2024 1:45 PM EDT Office Visit [facility] MED & PEDS [address] [place] [address] Jyoti Joshi CNP [address] [place] [address] documented as of this encounter Visit Diagnoses Not on filedocumented in this encounter Additional Health Concerns Active Problems Noted Date Diagnosed Date Adjustment disorder with depressed mood 06/01/19 23 Assessment Noted Time PHQ-9 Depression Total Score: 0 09/02/19 24 11:42 AM EDT documented as of this encounter Care Teams Hyster Driver Relationship Specialty Start Date End Date Nikki Baker MD [address] [place] [address] PCP - General Family Medicine 07/21/18 documented as of this encounter
--- OUTSIDE RECORDS SUMMARY | 2024-11-26 17:37 | XMS_ITS | Encounter Summary ---
Author Organization [employer] Address [address] [facility] [place] [address] Care Team Providers Care Beef Boner Name Role Phone Nikki Baker MD Primary Care Provide r Encounter Details Date Type Department Care Team ([facility] st Contact Info) Description 02/01/2024 Orders Only [facility] MEDICINE [address] [place], [place] [phone] Nikki Baker MD [address] [place] [address] Social History Tobacco Use Types Packs/Day Years [...] Description 11/27/2024 1:45 PM EDT Office Visit [facility] MED & PEDS [address] [place] [address] Jyoti Joshi, ELECTRONIC INDUCTION HARDENER [address] [place] [address] documented as of this encounter Visit Diagnoses Not on filedocumented in this encounter Additional Health Concerns Active Problems Noted Date Diagnosed Date Adjustment disorder with depressed mood 06/01/19 23 Assessment Noted Time PHQ-9 Depression Total Score: 0 09/02/19 24 11:42 AM EDT documented as of this encounter Care Teams Beef Boner Relationship Specialty Start Date End Date Nikki Baker MD [address] [place] [address] PCP - General Family Medicine 07/21/18 documented as of this encounter
--- OUTSIDE RECORDS SUMMARY | 2024-11-26 17:37 | XMS_ITS | Encounter Summary ---
Author Organization [employer] Address [address] [facility] [facility] [address] [place] [address] Care Team Providers Care Commercial Retoucher Name Role Phone Nikki Baker MD Primary Care Provide r Encounter Details Date Type Department Care Team ([facility] st Contact Info) Description 11/26/2024 Orders Only [facility] MEDICINE [address] [place], [place] [phone] Nikki Baker MD [address] [place], [place] [phone] Preoperative clearance (Primary Dx) Social History Tobacco Use [...] AM EDT documented as of this encounter Progress Notes * Siri Villegas - 11/26/2024 3:12 PM EDT Patient requested to have PTT drawn for his Preop documented in this encounter Plan of Treatment Upcoming Encounters Date Type Department Care Team (Late st Contact Info) Description 11/27/2024 1:45 PM EDT Office Visit [facility] MED & PEDS [address] [place] [address] [place], [facility] [address] [place] [address] documented as of this encounter Procedures Procedure Name Priority Date/Time Associated Diagnosis Comments APTT Routine 11/26/2024 3:22 PM EDT Preoperative clearance documented in this encounter Results * Partial Thromboplastin Time, Activated (APTT) (11/26/2024 3:22 PM EDT) Partial Thromboplastin Time 27.7 26.7 - 34.1 SEC [facility] Blood Venous blood specimen / Unknown 11/26/2024 3:22 PM EDT 11/26/2024 4:00 PM EDT Nikki Bower MD LAB BLOOD ORDERABLES Final Result [facility] [address] [place] [phone] documented in this encounter Visit Diagnoses Diagnosis Preoperative clearance- Primary Unspecified pre-operative examination documented in this encounter Additional Health Concerns Active Problems Noted Date Diagnosed Date Adjustment disorder with depressed mood 06/01/19 23 Assessment Noted Time PHQ-9 Depression Total Score: 0 09/02/19 24 11:42 AM EDT documented as of this encounter Care Teams Commercial Retoucher Relationship Specialty Start Date End Date Nikki Baker MD [address] [place] [phone] PCP - General Family Medicine 07/21/18 documented as of this encounter
--- OUTSIDE RECORDS SUMMARY | 2024-11-26 17:37 | XMS_ITS | Clinical Summary ---
Author Organization [address] [facility] Address [address] [place] [address] Phone Care Team Providers Care Senior Treasury Analyst Name Role Phone Nikki Baker MD [...] (2 of 2 - PCV) 08/12/2013 08/12/2012 HPV Vaccines (1 - 3-dose SCDM series) 07/24/2019 HIV Screening 01/24/2022 Hepatitis C Screening 01/24/2022 Social Influencers of Health Screening 01/24/2022 Depression Screening 02/22/2024 COVID-19 Vaccine ( season) 2024 Influenza Vaccine (#1) 2024 , 12/18/2012, 12/05/2001 Cholesterol Screening (Lipid Panel) 07/19/2028 07/20/2023 DTaP,Tdap,and Td Vaccines (9 - Td or Tdap) 06/09/2030 06/09/2020, 10/10/2011, 10/12/2005, Additional history exists RSV Immunization Adult Patients (1 - 1-dose 75+ series) 07/24/2067 HIB Vaccines Completed 03/09/1994, 06/0 02/1993, 1992, Additional history exists IPV Vaccines Completed 07/12/1997, 0602/1993, 1992, Additional history exists MMR Vaccines Completed 07/12/1997, 03/09/1994 Varicella Vaccines Completed 01/01/2008, 07/12/1997 Hepatitis B Vaccines Completed 03/03/2023, 07/22/1993, 1992, Additional history exists Meningococcal ACWY Vaccine Aged Out N o longer eligible based on patient's age to complete this topic Meningococcal B Vaccine Aged Out No l onger eligible based on patient's age to complete this topic RSV Immunization Patients Under 20 months Aged Out No longer eligible based on patient's age to complete this topic Insurance MEDICAID - [place] Care Teams Senior Treasury Analyst Relationship Specialty Start Date End Date Nikki Baker MD [address] [facility] [address] [place] [phone] PCP - General Internal Medicine 01/10/24
== END 2024-11-26 15:17 | disposition home or self-care (01) ==
LOC: HO.HHCL 15:16
PROVIDERS: PCP Internal Medicine; Visit Provider Internal Medicine
DX: Z01.818 Encounter for other preprocedural examination (principal)
CPT/HCPCS: 36415; 85730

== ENCOUNTER 2024-12-19 12:19 | Outpatient (REF) | payer MEDICAID, SELFPAY ==
--- NOTE | ~2024-12-19 | XR_ITS ---
EXAMINATION: XR FOOT, RIGHT CLINICAL INFORMATION: Heel pain in the right foot COMPARISON: None available. TECHNIQUE: AP, lateral, and oblique views of the right foot. FINDINGS: No abnormal lucencies, sclerosis, or enthesophytes are noted involving calcaneus. There are no degenerative changes in the foot. No fracture is evident. There is hallux valgus deformity. XR/XR foot RT min 3V IMPRESSION: Hallux valgus deformity, otherwise unremarkable foot and calcaneus. Electronically signed by: Bong Joy MD 12/19/2024 02:14 PM EDT
--- OUTSIDE RECORDS SUMMARY | 2024-12-19 11:30 | XMS_ITS | Encounter Summary ---
Author Organization [employer] Address [address] [facility] [address] [place] [address] Care Team Providers Care Wax Blender Name Role Phone Nikki Baker MD Primary Care Provide r Reason for Referral * Consultation (Routine) - Pending Review Specialty Diagnoses / Procedures Referred By Jossy uribe Referred To Contact General Surgery Diagnoses Nodule of finger of left hand Nikki Baker MD [address] [place] [address] Phone: tel: fax: Referral ID Status Reason Start Date Expiration Date Visits Requested Visits Authorized [id number] Pending Review Specialty Services Required 12/19/2025 1 1 * Consultation (Routine) - Pending Review Specialty Diagnoses / Procedures Referred By Jossy uribe Referred To Contact Podiatry Diagnoses Intractable right heel pain Nikki Baker MD [address] [place] [address] Phone: tel: fax: Referral ID Status Reason Start Date Expiration Date Visits Requested Visits Authorized [id number] Pending Review Specialty Services Required 12/19/2025 1 1 * Hospital - Outpatient (Routine) - Authorized Specialty Diagnoses / Procedures Referred By Jossy uribe Referred To Contact Diagnoses Hypersomnia Apneic episode Snoring Procedures Polysomnography Nikki Baker MD [address] [place] [address] Phone: tel: fax: [address] Phone: tel: fax: Referral ID Status Reason Start Date Expiration Date V isits Requested Visits Authorized [id number] Authorized 12/19/2024 12/19/2025 1 1 * Consultation (Routine) - Authorized Specialty Diagnoses / Procedures Referred By Contpaolo t Referred To Contact Behavioral Health Diagnoses Mood disorder (CMS/HCC) Procedures Referral to Behavioral Health Nikki Baker MD [address] [place] [address] Phone: tel: fax: Referral ID Status Reason Start Date Expiration Date Visits Requested Visits Authorized [id number] Authorized Specialty Services Required 12/19/2025 1 1 Encounter Details Date Type Department Care Team (Late st Contact Info) Description 12/19/2024 11:30 AM EDT Office Visit [facility] [address] [place] [id number] Nikki Baker MD [address] [place] [phone] Intractable right heel pain; Moderate persistent asthma, unspecified whether complicated; Herpes simplex type 2 infection; Mood disorder (CMS/HCC); Fibromyalgia; Hypersomnia; Apneic episode; Snoring; Nodule of finger of left hand Social History Tobacco Use Types Packs/Day Years Used Date Smoking Tobacco: Never Passive Smoke Exposure: Never Smokeless Tobacco: Never Alcohol Use Standard Drinks/Week Comments Never 0 (1 standard drink = 0.6 oz pur e alcohol) Depression Answer Date Recorded Patient Health Questionnaire-9 Score 0 11/27/2024 Patient Health Questionnaire-9 Score 0 11/27/2024 Last PHQ-9: Questionnaire Data Not on file 1 Housing Stability Answer Date Recorded What is your housing situation today? I have reji garcia 11/27/[address] you li ve. Do you have problems with any of the following? I am not sure 11/27/2024 Food Insecurity Answer Date Recorded Within the past 12 months, y ou worried that your food would run out before you got money to buy more: Sometimes True 2024 Within the past 12 months,th e food you bought just didn't last and you didn't have enough money to get more: Never True 11/27/2024 Transportation Answer Date Recorded In the past 12 months, has l ack of transportation kept you from medical appts, meetings, work or from getting things needed for daily living? No 11/27/2024 Utilities Answer Date Recorded In the past 12 months, has t he electric, gas, oil or water company threatened to shut off services in your home? No 11/27/2024 Depression Answer Date Recorded Patient Health Questionnaire-2 Score 0 11/27/2024 Internet Access Answer Date Recorded Internet Access Q1 Yes 11/27/2024 Internet Access Q2 Not on file 11/27/2024 Sex and Gender Information Value Date Recorded Sex Assigned at Male 12/21/2021 10:14 AM EDT Legal Sex Male 10:14 AM EDT Gender Identity Male 12/21/2021 10:14 AM EDT Sexual Orientation Romero 11/28/2024 2: 11 PM EDT documented as of this encounter Last Filed Vital Signs Vital Sign Reading Time Taken Comments Blood Pressure 124/82 12/19/2024 11:40 AM EDT Pulse 71 12/19/2024 11:40 AM EDT Temperature 36 C (96.8 F) 12/19/2024 11:40 AM EDT Respiratory Rate 20 12/19/2024 11:40 AM EDT Oxygen Saturation 98% 12/19/2024 11:40 AM EDT Inhaled Oxygen Concentration - - Weight 121 kg (266 lb 6.4 oz) 12/19/2024 11:40 A M EDT Height 180.3 cm (5' 11 ) 12/19/2024 11:40 AM EDT Body Mass Index 37.16 12/19/2024 11:40 AM EDT documented in this encounter Progress Notes * Nikki Bower MD - 12/19/2024 11:30 AM EDT SUBJECTIVE: Ruy Dickerson is a 34 y.o. year old male who presents for acute visit . Ruy Dickerson, 34 years Right Heel Pain - Deep, severe pain in the right heel described as like a knife when bending down - Pain present only when bending, not while standing - Onset unclear, but reported as a new and intense symptom, never experienced before Shortness of Breath and Asthma - History of asthma with episodes of shortness of breath, especially when walking and needing to stop frequently - Reports using albuterol inhaler and previously used a round (disk) inhaler - Reports increased difficulty controlling symptoms, especially in cold weather and during physicalactivity - History of prior emergency visits for asthma - Reports snoring loudly and episodes of waking up at night unable to breathe, with cyanosis and distress - Daytime fatigue and sleepiness, with desire to nap during the day Cognitive Symptoms - Reports frequent forgetfulness and difficulty remembering tasks or thoughts while walking or performing activities - Feels that mental function is affected, possibly related to mood and depression Mood Symptoms - Reports anxiety, depression, and mood changes - Describes crying and feeling overwhelmed due to lack of support and stress related to caregiving responsibilities Fibromyalgia - Reports chronic pain and difficulty walking and moving due to fibromyalgia Nodule - Reports a growing, painful nodule. Weight Loss - Reports significant and rapid weight loss through diet and exercise - Preparing for Lipo 360 and BBL surgery in two weeks (mid-December 2024) Difficulty with Mobility - Reports difficulty walking long distances and need to stop frequently due to shortness of breath and pain Sleep Disturbance - Reports loud snoring and episodes of apnea as observed by partner - Reports waking up feeling unable to breathe Misc - Reports history of bipolar disorder - Reports past marijuana use - Reports stress related to paperwork for disability accommodations and caregiving support Social History Social History Narrative Not on file Problem List[1] Family History[2] Review of Systems Constitutional: Positive for fatigue. Negative for activity change, appetite change, chills, diaphoresis, fever and unexpected weight change. HENT: Negative. Respiratory: Negative. Cardiovascular: Negative. Musculoskeletal: Positive for arthralgias and myalgias. OBJECTIVE: Vitals: 12/19/24 1140 BP: 124/82 BP Location: Left arm Patient Position: Sitting BP Cuff Size: Large adult Pulse: 71 Resp: 20 Temp: 96.8 ??F (36 ??C) TempSrc: Temporal SpO2: 98% Weight: 266 lb 6.4 oz (121 kg) Height: 5' 11 (1.803 m) Physical Exam Constitutional: Appearance: Normal appearance. Cardiovascular: Rate and Rhythm: Normal rate and regular rhythm. Pulmonary: Effort: Pulmonary effort is normal. Breath sounds: Normal breath sounds. Abdominal: General: Abdomen is flat. Palpations: Abdomen is soft. Musculoskeletal: Right lower leg: No edema. Left lower leg: No edema. Neurological: Mental Status: He is alert. Follow Up: No follow-ups on file. Medications Ordered Prior to Encounter[3] Problem List Items Addressed This Visit Intractable right heel pain Relevant Orders XR Foot 3+ Views Right Referral to Podiatry Asthma Relevant Medications albuterol 108 (90 Base) MCG/ACT inhaler Fluticasone-Salmeterol (Advair Diskus) 250-50 MCG/ACT aerosol powder Herpes simplex type 2 infection Relevant Medications valACYclovir (Valtrex) 500 MG tablet Mood disorder (CMS/HCC) Relevant Orders Referral to [facility] Fibromyalgia Hypersomnia Relevant Orders Polysomnography Apneic episode Relevant Medications albuterol 108 (90 Base) MCG/ACT inhaler Fluticasone-Salmeterol (Advair Diskus) 250-50 MCG/ACT aerosol powder Other Relevant Orders Polysomnography Snoring Relevant Orders Polysomnography Nodule of finger of left hand Relevant Orders Referral to General Surgery Intractable right heel pain: - Right heel pain possibly due to heel spur. - Ordered right foot X-ray. Referred to podiatry for further evaluation. Moderate persistent asthma, unspecified whether complicated: - Moderate persistent asthma with inadequate control on current regimen. - Prescribed maintenance inhaler (purple disk) to be used daily. Advised to rinse mouth after use. Continued albuterol as rescue inhaler. Recommended avoidance of asthma triggers. Herpes simplex type 2 infection: - Herpes simplex type 2 infection. - Prescribed daily antiviral medication (acyclovir) to prevent outbreaks. Mood disorder (CMS/HCC): - Mood disorder with symptoms of anxiety, depression, and mood changes. - Referred to therapist for counseling. Referred to psychiatric provider for further evaluation andmedication management. Discussed need for documentation for support services. Fibromyalgia: - Fibromyalgia with chronic pain and difficulty ambulating. - Recommended exercise, weight loss, hydration, and management of anxiety and depression. Hypersomnia: - Hypersomnia with excessive daytime sleepiness. - Ordered sleep study to further evaluate etiology. Apneic episode: - Apneic episodes during sleep with associated cyanosis and dyspnea. - Ordered sleep study to be performed in hospital setting. Snoring: - Snoring with witnessed apneic episodes. - Ordered sleep study. To follow up on results. Nodule of finger of left hand: - Nodule on left finger, not suspected to be malignant. - Will monitor for changes. Surgical referral offered for biopsy if changes occur. Follow-up scheduled for a few months to reassess. This note was drafted using [employer] (AI) technology. The patient/patient's guardian has been informed and has consented to the use of this technology: Yes [1] Patient Active Problem List Diagnosis Anxiety Asthma Eczema Mood disorder ([facility]) Adjustment disorder with depressed mood Acne Binocular vision disorder Sleep disorder Colitis Depression, major, recurrent, severe with psychosis ([facility]) ([facility]) Excess skin of breast Gastroesophageal reflux disease Insomnia Numbness of hand Urinary incontinence Herpes simplex type 2 infection Depressive disorder Lymphadenopathy of head and neck Cervical lymphadenopathy Folliculitis Positive APRYL (antinuclear antibody) Class 3 severe obesity due to excess calories with serious comorbidity and body mass index (BMI) of40.0 to 44.9 in adult ([facility]) Fibromyalgia Neuroma digital nerve Laceration of left hand without foreign body Laceration of right hand without foreign body Right hand pain Mixed stress and urge urinary incontinence Exposure to human immunodeficiency virus Cannabis abuse Intractable right heel pain Hypersomnia Apneic episode Snoring Nodule of finger of left hand [2] No family history on file. [3] Current Outpatient Medications on File Prior to Visit Medication Sig Dispense Refill bacitracin-polymyxin b (Polysporin) ointment Apply topically 2 times daily. 15 g 0 fpmvfngclzo-tuhqsuzaqv-dryttsugt (Biktarvy) 50-200-25 MG tablet Take 1 tablet by mouth Once per day. 30 tablet 0 doxycycline (Vibra-Tabs) 100 MG tablet Take 2 tablets with in 72 hours of condomless vaginal, oral or anal sex 2 tablet 0 emtricitabine-tenofovir AF (Descovy) 200-25 MG tablet Take 1 tablet by mouth Once per day. 30 tablet 2 gabapentin (Neurontin) 600 MG tablet Take 1 tablet (600 mg) by mouth 3 times daily. 90 tablet 2 [DISCONTINUED] emtricitabine-tenofovir AF (Descovy) 200-25 MG tablet Take 1 tablet by mouth Once per day. 30 tablet 2 Current Facility-Administered Medications on File Prior to Visit Medication Dose Route Frequency Provider Last Rate Last Admin doxycycline (Adoxa) tablet 100 mg 100 mg Oral BID Gene Shonda RN 100 mg at 02/18/22 1407 documented in this encounter Plan of Treatment Scheduled Orders Name Type Priority Associated Diagnoses Orde r Schedule Polysomnography Sleep Center Routine Hypersomnia Apneic episode Snoring Expected: 12/19/2024 (Approximate), Expires: 12/19/2025 Scheduled Referrals Name Type Priority Associated Diagnoses Orde r Schedule Referral to Podiatry Outpatient Referral Routine Intractable right heel pain Expected: 12/19/2024 (Approximate), Expires: 12/19/2025 Referral to General Surgery Outpatient Referral Routine Nodule of finger of left hand Expected: 12/19/2024 (Approximate), Expires: 12/19/2025 documented as of this encounter Procedures Procedure Name Priority Date/Time Associated Diagnosis Comments XR FOOT 3+ VIEWS RIGHT Routine 12/19/2024 2:00 PM EDT Intractable right heel pain documented in this encounter Results * XR Foot 3+ Views Right (12/19/2024 2:00 PM EDT) Anatomical Region Laterality Modality Lower Extremities, Foot Right Radiogra [facility] Imaging 12/19/2024 2:00 PM EDT Narrative 12/19/2024 2:16 PM EDT [address] [address] XRay Report Signed Patient: Ruy Dickerson MR#: [id number] : 1990 Acct:[id number] Age/Sex: 34 / M ADM Date: 12/19/24 [facility]: Nikki Bower MD Ordering Physician: Nikki Baker MD Date of Service: 12/19/24 Procedure(s): XR foot RT min 3V Accession Number(s): [id number] cc: Nikki Baker MD Reason for Exam: pain EXAMINATION: XR FOOT, RIGHT CLINICAL INFORMATION: Heel pain in the right foot COMPARISON: None available. TECHNIQUE: AP, lateral, and oblique views of the right foot. FINDINGS: No abnormal lucencies, sclerosis, or enthesophytes are noted involving calcaneus. There are no degenerative changes in the foot. No fracture is evident. There is hallux valgus deformity. XR/XR foot RT min 3V IMPRESSION: Hallux valgus deformity, otherwise unremarkable foot and calcaneus. Electronically signed by: Bong Joy MD 12/19/2024 02:14 PM EDT RP Dictated By: Bong Joy MD Signed By: <Electronically signed by Bong Joy MD in OV> 12/19/24 1414 DD/ 1400 TD/TT: 12/19/24 1408 Private Advisor: Procedure Note Donotuseinterpreter, Image - 12/19/[address] [address] XRay Report Signed Patient: uRy DickersonMR#: [id number] : 1990Acct:[id number] Age/Sex: 34 / MADM Date: 12/19/24 Loc: [facility] Attending Dr: Nikki Bower MD Ordering Physician: Nikki Baker MD Date of Service: 12/19/24 Procedure(s): XR foot RT min 3V Accession Number(s): [id number] cc: Nikki Baker MD Reason for Exam: pain EXAMINATION: XR FOOT, RIGHT CLINICAL INFORMATION: Heel pain in the right foot COMPARISON: None available. TECHNIQUE: AP, lateral, and oblique views of the right foot. FINDINGS: No abnormal lucencies, sclerosis, or enthesophytes are noted involving calcaneus. There are no degenerative changes in the foot. No fracture is evident. There is hallux valgus deformity. XR/XR foot RT min 3V IMPRESSION: Hallux valgus deformity, otherwise unremarkable foot and calcaneus. Electronically signed by: Bong Joy MD 12/19/2024 02:14 PM EDT RP Dictated By: Bong Joy MD Signed By: <Electronically signed by Bong Joy MD in OV> 12/19/24 1414 DD/ 1400 TD/TT: 12/19/24 1408 Private Advisor: Nikki Bower MD IMG XR PROCEDURES Fin al Result documented in this encounter Visit Diagnoses Diagnosis Intractable right heel pain Moderate persistent asthma, unspecified whether complicated Herpes simplex type 2 infection Herpes simplex without mention of complication Mood disorder (CMS/HCC) Unspecified episodic mood disorder Fibromyalgia Unspecified myalgia and myositis Hypersomnia Hypersomnia, unspecified Apneic episode Snoring Other dyspnea and respiratory abnormality Nodule of finger of left hand documented in this encounter Additional Health Concerns Active Problems Noted Date Diagnosed Date Adjustment disorder with depressed mood 06/01/19 23 Assessment Noted Time PHQ-9 Depression Total Score: 0 11/28/19 25 2:27 PM EDT documented as of this encounter Care Teams Wax Blender Relationship Specialty Start Date End Date Nikki Baker MD [address] [place] [address] PCP - General Family Medicine 07/21/18 documented as of this encounter
--- OUTSIDE RECORDS SUMMARY | 2024-12-19 15:41 | XMS_ITS | Encounter Summary ---
Author Organization [employer] Address [address] [facility] [address] [place] [address] Care Team Providers Care Fire Dispatcher Name Role Phone Nikki Baker MD Primary Care Provide r Reason for Visit * Reason Onset Date Comments Appointment Request 03/29/2024 Encounter Details Date Type Department Care Team ([facility] st Contact Info) Description 03/29/2024 Telephone [facility] [address] [place] [address] Nikki Baker MD [address] [place] [address] Appointment Request Social History Tobacco Use Types [...] your housing situation today? I have reji radha 09/02/[address] you li [...] PM EDT documented as of this encounter Miscellaneous Notes * Telephone Encounter - Tiffany Tavares - 03/29/2024 10:28 AM EST Tc from pt requesting appointment with PCP to follow up on chronic conditions. Theatre Manager advise pt he is on a recall for June. Pt scheduled for ER follow up/Sick visit on 04/02/24 with Lilli but would still like to schedule a follow up with PCP. Theatre Manager advise will send a message to hospital medical biller. Contact pt at [phone] documented in this encounter Plan of Treatment Not on file documented as of this encounter Visit Diagnoses Not on filedocumented in this encounter Additional Health Concerns Active Problems Noted Date Diagnosed Date Adjustment disorder with depressed mood 06/01/19 23 Assessment Noted Time PHQ-9 Depression Total Score: 0 09/02/19 24 11:42 AM EDT documented as of this encounter Care Teams Fire Dispatcher Relationship Specialty Start Date End Date Nikki Baker MD [address] [place] [address] PCP - General Family Medicine 07/21/18 documented as of this encounter
--- OUTSIDE RECORDS SUMMARY | 2024-12-19 15:41 | XMS_ITS | Clinical Summary ---
Author Organization [employer] Address [address] [facility] [address] [place] [address] Care Team Providers Care Transcription Manager Name Role Phone Nikki Baker MD Primary Care Provide r Allergies No known active allergies Medications * This document contains information received from the source organization and may not represent a complete record from that organization. bacitracin-lou ymyxin b (Polysporin) ointment Apply topically 2 times daily. 15 g 09/07/19 23 Active gabapentin (Neurontin) 600 MG tabletIndicati ons:Right hand pain Take 1 tablet (600 mg) by mouth 3 times daily. 90 tablet 2 05/17/19 25 026 Active bictegravir-em tricitab-tenof ovir (Biktarvy) 50-200-25 MG tablet Take 1 tablet by mouth Once per day. 30 tablet 09/04/19 25 Active doxycycline (Vibra-Tabs) 100 MG tabletIndicati ons:On pre-exposure prophylaxis for HIV Take 2 tablets with in 72 hours of condomless vaginal, oral or anal sex 2 tablet 09/04/19 25 Active emtricitabine- tenofovir AF (Descovy) 200-25 MG tabletIndicati ons:Screening for STD (sexually transmitted disease) Take 1 tablet by mouth Once per day. 30 tablet 2 12/14/19 25 026 Active albuterol 108 (90 Base) MCG/ACT inhalerIndicat ions:Moderate persistent asthma, unspecified whether complicated Inhale 2 puffs every 4 (four) hours if needed for wheezing. 18 g 2 12/20/19 25 Active valACYclovir (Valtrex) 500 MG tabletIndicati ons:Herpes simplex type 2 infection Take 1 tablet (500 mg) by mouth Once per day. 30 tablet 2 12/20/19 25 026 Active Fluticasone-Sa lmeterol (Advair Diskus) 250-50 MCG/ACT aerosol powderIndicati ons:Moderate persistent asthma, unspecified whether complicated Inhale 1 puff 2 times daily. 1 each 2 12/20/19 Active QUEtiapine (SEROquel) 50 MG tabletIndicati ons:Depressive disorder Take 1 tablet (50 mg) by mouth at bedtime. 30 tablet 04/02/19 25 025 Discontinued hydrOXYzine pamoate (Vistaril) 50 MG capsuleIndicat ions:Anxiety Take 1 capsule (50 mg) by mouth every 8 (eight) hours if needed for itching for up to 10 days. 30 capsule 04/02/19 25 025 Discontinued emtricitabine- tenofovir AF (Descovy) 200-25 MG tabletIndicati ons:Screening for STD (sexually transmitted disease) Take 1 tablet by mouth Once per day. 30 tablet 2 08/22/19 25 025 Discontinued(Re order (will not trigger notification to Pharmacy)) valACYclovir (Valtrex) 1 g tabletIndicati ons:Herpes simplex type 2 infection Take 1 tablet (1,000 mg) by mouth Once per day for 10 days. 10 tablet 11/28/19 25 Hospital, Clinic, or Other Facility Administered Medication Ordered Dose Route Frequency Start Date End Date Status doxycycline (Adoxa) tablet 100 mgIndications:Chlamydia 100 mg PO 2 times daily 02/18/2022 Active Active Problems Problem Noted Date Diagnosed Date Intractable right heel pain 12/19/2024 Hypersomnia 12/19/2024 Apneic episode 12/19/2024 Snoring 12/19/2024 Nodule of finger of left hand 12/19/2024 Cannabis abuse 11/09/2024 Exposure to human immunodeficiency [...] without foreign body Neuroma digital nerve 01/09/2024 Class 3 severe obesity due t o [...] antibody) 07/27/2023 Cervical lymphadenopathy 05/20/2023 Folliculitis 05/20/2023 Lymphadenopathy of head and neck 04/08/2023 Herpes simplex type 2 infection 06/15/2022 Assessment & Plan (06/15/2022 12:20 PM EDT): Counseling was done I advise not to have oral or genital sex if sores or blisters are present Condom use was advise Medication sent to pharmacy Colitis 06/11/2022 Excess skin of breast 06/11/2022 Gastroesophageal reflux disease 06/11/2022 Insomnia 06/11/2022 Numbness of hand 06/11/2022 Urinary incontinence 06/11/2022 Assessment & Plan (05/20/2023 3:17 PM EDT): Bed pads will continue to be prescribed Adjustment disorder with depressed mood 06/01/19 Eczema 05/01/2022 Mood disorder 05/01/2022 Depression, major, recurrent , severe with psychosis ([facility]) 10/24/2014 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 Anxiety 06/19/2012 [...] reports he will start services with therapist Acne 06/26/2007 Resolved Problems Problem Noted Date Diagnosed Date Resolved Date Otitis media, acute 09/02/2023 11/28/19 Acute pain of right knee 04/08/202308/2024 Palpitations 04/08/2023 11/27/2024 Precordial pain 04/08/2023 11/27/2024 Dizziness 06/11/2022 11/27/2024 Fatigue 06/11/2022 11/27/2024 Heel pain 06/11/2022 11/27/2024 Epigastric pain 05/16/2018 11/27/2024 Hand pain 10/24/2014 11/27/2024 Overweight 01/01/2008 11/27/2024 Encounters Date Type Department Care Team Description 12/19/2024 11:30 AM EDT Office Visit [address] [address] Nikki Baker MD Intractable right heel pain; Moderate persistent asthma, unspecified whether complicated; Herpes simplex type 2 infection; Mood disorder (CMS/[facility]); Fibromyalgia; Hypersomnia; Apneic episode; Snoring; Nodule of finger of left hand 12/19/2024 Travel 12/14/[address] [address] Nikki Baker MD 12/13/[address] [address] Vikki Brock, RN Screening for STD (sexually transmitted disease) 12/07/[address] [address] Nikki Baker MD call back 11/27/2024 1:45 PM EDT Office Visit [facility] [address] [place] [address] Jyoti Joshi CNP Pre-op evaluation (Primary Dx); Herpes simplex type 2 infection 11/27/2024 Telephone [facility] [address] [place] [address] Nikki Baker MD Pre-op Exam 11/27/2024 Travel 11/26/2024 Orders Only [address] [address] Nikki Baker MD Preoperative clearance (Primary Dx) 11/22/[address] [address] Nikki Baker MD Results 11/16/2024 Orders Only [address] [address] Nikki Baker MD Pre-operative clearance (Primary Dx) 11/09/2024 Telephone [facility] [address] [place] [address] Nikki Baker MD chart prep 11/06/[address] [address] Nikki Baker MD Pre-op Visit 11/05/[address] [address] Nikki Baker MD Pre-op Visit 09/24/2024 Orders Only [address] [address] Екатерина Berg, CECI Exposure to human immunodeficiency virus from Last 3 Months Immunizations Immunization Administration Dates Next Due DTP 07/12/1997, 5,07/22/1993,11/22,1992 Hep B, Adolescent or Pediatric 07/22/1993,1992,1992 HepB-CpG 03/03/2023 04/01/2023 Hib (HbO) 03/09/1994, 4,1992,09/23 IPV 07/12/1997, 4,1992,09/23 Influenza injectable [...] Orientation Romero 11/28/2024 2: 11 PM EDT Last Filed Vital Signs Vital Sign [...] Mass Index 37.16 12/19/2024 11:40 AM EDT Plan of Treatment Health Maintenance Due Date Last Done Comments Disability Screening 1990 Family Planning (PISQ) 07/24/2007 HPV Vaccines (1 - Male 3-dose series) 07/24/2007 Pneumococcal Vaccine: Pediatrics (0 to 5 Years) and At-Risk Patients (6 to 49) Years (2 of 2 - PCV) 08/12/2013 08/12/2012 COVID-19 Vaccine (3 - season) 2024 10/30/2020, 10/09/2020 Influenza Vaccine (#1) 2024 , 12/18/2012, 12/05/2001 Alcohol/Substance Use Screening 11/27/2025 11/27/2024 Depression Screening 11/27/2025 11/27/2024, 11/28/19 25 SDOH Screening 11/27/2025 11/27/2024 Tobacco Screening 12/19/2025 12/19/2024 Lipid Panel 07/19/2028 07/20/2023 DTaP/Tdap/Td Vaccines (10 [...] Additional history exists HIV Screening Completed 11/16/2024, 05/2024, 09/03/2024, Additional history exists Hepatitis C [...] 2:00 PM EDT Intractable right heel pain APTT Routine 11/26/2024 3:22 PM EDT Preoperative [...] AM EDT Exposure to human immunodeficiency virus LIPID PANEL, STANDARD Routine 07/20/2023 2:38 PM EDT Fatigue, unspecified type from Last 3 Months or Most Recently Relevant to Health Maintenance Results * XR Foot 3+ Views Right (12/19/2024 2:00 PM EDT) Anatomical Region Laterality Modality Lower Extremities, Foot Right [facility] 12/19/2024 2:00 PM EDT Narrative 12/19/2024 2:16 [place] [address] XRay Report Signed Patient: Ruy Dickerson MR#: [id number] : 1990 Acct:[id number] Age/Sex: 34 / M ADM Date: 12/19/24 Loc: HO.HHCX Attending Dr: Nikki Bower MD Ordering Physician: Nikki Baker MD Date of Service: 12/19/24 Procedure(s): XR foot RT min 3V Accession Number(s): [id number] cc: Nikki Baker MD Reason for Exam: [...] 12/19/24 1414 DD/ 1400 TD/TT: 12/19/24 [address] Hoist Operator: Procedure Note Donotuseinterpreter, Image - 12/19/[address] [address] XRay Report Signed Patient: Nolan Dickerson#: [id number] : 1990Acct:[id number] Age/Sex: 34 / MADM Date: 12/19/24 Loc: HO.HHCX Attending Dr: Nikki Bower MD Ordering Physician: Nikki Baker MD Date of Service: 12/19/24 Procedure(s): XR foot RT min 3V Accession Number(s): [id number] cc: Nikki Baker MD Reason for Exam: [...] 12/19/24 1414 DD/ 1400 TD/TT: 12/19/24 [address] Hoist Operator: Nikki Bower MD IMG XR PROCEDURES Fin al Result * Partial Thromboplastin Time, Activated (APTT) (11/26/2024 3:22 PM EDT) [facility] [address] Partial Thromboplastin Time 27.7 26.7 - 34.1 SEC [facility] Blood Venous blood specimen / Unknown 11/26/2024 3:22 PM EDT 11/26/2024 4:00 PM EDT Nikki Bower MD LAB BLOOD ORDERABLES Final Result Performing Organization Address [facility] de Phone Number [facility] [address] [place] [phone] * Hepatitis C Antibody with Reflex to HCV, RNA, Quantitative, Real-Time PCR (11/16/2024 1:41 PM EDT) Only the most recent of2 resultswithin the time period is included. [facility] [address] Hepatitis C Antibody Nonreactive Nonreactive [facility] Comment:Antibodies to HCV no t detected; does not exclude early acuteHCV infection. 11/16/2024 1:41 PM EDT 11/16/2024 3:57 PM EDT Nikki Bower MD LAB BLOOD ORDERABLES Final Result Performing Organization Address [facility] Co de Phone Number [facility] [address] [place] [phone] * (ABNORMAL) CBC auto differential (11/16/2024 1:25 PM EDT) Pathologist [facility] White Blood Count 10.6 4.8 - 10.8 X10*3/uL [facility] Red Blood Count 5.52 4.60 - 5.80 X10*6/uL [facility] Hemoglobin 14.8 14.0 - 18.0 g/dl [facility] Hematocrit 45.9 42.0 - 52.0 % [facility] Mean Corpuscular Volume 83.2 80.0 - 98.0 fL [facility] Mean Corpuscular Hemoglobin 26.8(L) 27.0 - 33.0 pg [facility] Mean Corpuscular HGB Conc 32.2 31.0 - 36.0 g/dl [facility] Red Cell Distribution Width 14.5 11.0 - 16.0 % [facility] Platelet Count 282 160 - 400 X10*3/uL [facility] Mean Platelet Volume 11.5 9.4 - 12.4 fL [facility] Neutrophils Percent Auto 52.7 45 - 73 % [facility] Imm Gran Pct Auto 0.5(H) 0.0 - 0.4 % [facility] Lymphocytes Percent Auto 39.7 20 - 40 % [facility] Monocytes Percent Auto 5.8 2 - 11 % [facility] Eosinophils Percent Auto 0.7 0 - 4 % [facility] Basophils Percent Auto 0.6 0 - 2 % [facility] NRBC Pct Auto 0.0 0.0 - 0.2 /100WBC [facility] Neutrophils Absolute Auto 5.6 2.0 - 8.3 x10*3/uL [facility] Imm Gran Abs Auto 0.05(H) 0.00 - 0.03 X10*3/uL [facility] Lymphocytes Absolute Auto 4.2 1.2 - 4.9 X10*3/uL [facility] Monocytes Absolute Auto 0.6 0.1 - 1.2 X10*3/uL [facility] Eosinophils Absolute Auto 0.1 0.0 - 0.4 X10*3/uL [facility] Basophils Absolute Auto 0.1 0.0 - 0.2 X10*3/uL [facility] NRBC Abs Auto 0.000 0.0 - 0.012 X10*3/uL [facility] Blood Venous blood specimen / Unknown 11/16/2024 1:25 PM EDT 11/16/2024 3:57 PM EDT Nikki Bower MD LAB BLOOD ORDERABLES Final Result Performing Organization Address [facility]/ZIP Co de Phone Number [facility] [address] [place] [phone] * HIV-1 RNA, Quantitative, Real-Time PCR (11/16/2024 1:25 PM EDT) Pathologist [facility] [place] HIV RNA PCR Qn Copies NOT DETECTED NOT DETECTED copies/mL [facility] HIV RNA PCR Qn Log Copies NOT DETECTED NOT DETECTED [facility] Comment:Result Units: Log co pies/mLThis test was performed using Real-Time Polymerase ChainReaction.Reportable Range: 20 copies/mL to 10,000,000 copies/mL(1.30 log copies/mL to 7.00 log copies/mL).THIS TEST WAS PERFORMED AT:[employer] [address] [id number] HANDY MD Blood Venous blood specimen / Unknown 11/16/2024 1:25 PM EDT 11/16/2024 3:57 PM EDT us Nikki Bower MD LAB BLOOD ORDERABLES Final Result Performing Organization Address [facility] de Phone Number [facility] [address] [place] [phone] * Prothrombin Time-INR (11/16/2024 1:25 PM EDT) Pathologist [facility] [place] Prothrombin Time 11.5 10.9 - 12.4 SEC [facility] INTERNATIONAL NORM RATIO 1.0 0.9 - 1.1 [facility] Comment:INTERNATIONAL NORMAL IZED RATIO (INR) [...] BLOOD ORDERABLES Final Result Performing Organization Address City/[facility]/ZIP Co de Phone Number [facility] [address] [place] [phone] * Hepatic Function Panel (11/16/2024 1:25 PM EDT) Bilirubin, Direct 0.2 0.0 - 0.5 mg/dL [facility] Blood Venous blood specimen / Unknown 11/16/2024 1:25 PM EDT 11/16/2024 3:57 PM EDT Nikki Bower MD LAB BLOOD ORDERABLES Final Result Performing Organization Address City/[facility] Co de Phone Number [facility] [address] [place] [phone] * Comprehensive Metabolic Panel (11/16/2024 1:25 PM EDT) Sodium 141 135 - 145 mmol/L [facility] Potassium 4.0 3.3 - 5.1 mmol/L [facility] Chloride 106 96 - 108 mmol/L [facility] Carbon Dioxide 27 22 - 29 mmol/L [facility] Anion Gap 12 12 - 20 [facility] Urea Nitrogen (BUN) 10 9 - 16 mg/dL [facility] Creatinine, Serum 1.05 0.5 - 1.4 mg/dL [facility] Estimated Glomerular Filt Rate >60 [facility] Comment:Chronic Kidney Disea se: Estimated GFR < 60 mL/min/[id number] Kidney Disease: Estimated GFR < 15 mL/min/1.73m2 Glucose 80 60 - 115 mg/dL [facility] Calcium 9.5 8.4 - 10.2 mg/dL [facility] Bilirubin, Total 0.5 0.0 - 1.0 mg/dL [facility] Aspartate Amino Transferase 34 5 - 37 U/L [facility] Alanine Aminotransferase 36 0 - 40 U/L [facility] Total Protein 7.6 6.5 - 8.0 g/dL [facility] Albumin Level 4.6 3.5 - 5.0 g/dL [facility] Alkaline Phosphatase 109 39 - 117 U/L [facility] Blood Venous blood specimen / Unknown 11/16/2024 1:25 PM EDT 11/16/2024 3:57 PM EDT Nikki Bower MD LAB BLOOD ORDERABLES Final Result Performing Organization Address [facility]/ZIP Co de Phone Number [facility] [address] [place] [phone] * Syphilis Screen (09/24/2024 11:33 AM EDT) Syphilis Screen Nonreactive Nonreactive [facility] 09/24/2024 11:3 3 AM EDT 09/24/2024 1:17 PM EDT us Nikki Bower MD LAB BLOOD ORDERABLES Final Result Performing Organization Address City/[facility] Co de Phone Number [facility] [address] [place] [phone] * Creatinine, Serum (09/24/2024 11:33 AM EDT) Creatinine, Serum 1.10 0.5 - 1.4 mg/dL [facility] Estimated Glomerular Filt Rate >60 [facility] Comment:Chronic Kidney Disea se: Estimated GFR < 60 mL/min/[id number] Kidney Disease: Estimated GFR < 15 mL/min/1.73m2 Blood Venous blood specimen / Unknown 09/24/2024 11:33 AM EDT 09/24/2024 1:17 PM EDT us Apryl Alejandro MD LAB BLOOD ORDERABLES Fin al Result Performing Organization Address [facility] Co de Phone Number [facility] [address] [place] [phone] * HIV-1/2 Antigen and Antibodies, Fourth Generation, with Reflexes (09/24/2024 11:33 AM EDT) HIV AB/AG Nonreactive Nonreactive [facility] Comment:HIV-1 p24 Ag and/or HIV-1/HIV-2 Ab not detected.A test result that is nonreactive does not exclude thepossibility of exposure to or infection with HIV-1 and/orHIV-2. Nonreactive results in this assay for individualswith prior exposure to HIV-1 and/or HIV-2 may be due toantigen and antibody levels that are below the limit ofdetection of this assay.The CEL-SCI HIV Ag/Ab Combo assay result andsupplemental assay results should be interpreted inconjunction with the patient's clinical presentation,history and other laboratory results. If the results areinconsistent with clinical evidence, additional testing issuggested to confirm the result. 09/24/2024 11:3 3 AM EDT 09/24/2024 1:17 PM EDT us Nikki Bower MD LAB BLOOD ORDERABLES Final Result Performing Organization Address [facility] Co de Phone Number [facility] [address] [place] [phone] * BUN (Blood Urea Nitrogen) (09/24/2024 11:33 AM EDT) Urea Nitrogen (BUN) 10 9 - 16 mg/dL [facility] Blood Venous blood specimen / Unknown 09/24/2024 11:33 AM EDT 09/24/2024 1:17 PM EDT us Apryl Alejandro MD LAB BLOOD ORDERABLES Fin al Result Performing Organization Address City/[facility] Co de Phone Number [facility] [address] [place] [phone] * (ABNORMAL) Lipid Panel, Standard (07/20/2023 2:38 PM EDT) Triglycerides 103 <150 mg/dL [facility] Comment:Desirable Triglyceri de: less than 150 mg/dLBorderline High Triglyceride 150-199 mg/dLHigh Triglyceride: 200-499 mg/dLVery High Triglyceride: greater than or equal to 5OO mg/dL Cholesterol 117 <200 mg/dL [facility] Comment:Desirable Cholestero l: less than 200 mg/dLBorderline High Cholesterol: 200-239 mg/dLHigh Cholesterol: greater than 239 mg/dL LDL Cholesterol Calculated 57 <100 mg/dL [facility] Comment:Desirable LDL: less than 100 mg/dLNear Optimal/Above Optimal LDL: 110- 129 mg/dLBorderline High LDL: 130-159 mg/dLHigh LDL: 160-189 mg/dLVery High LDL: greater than or equal to 190 mg/dL HDL Cholesterol 40(L) >40 mg/dL [facility] Comment:Desirable HDL: great er than 40 mg/dL Note: This HDL assay may give artificially low results in patients with liver disease. Blood Venous blood specimen / Unknown 07/20/2023 2:38 PM EDT 07/20/2023 4:41 PM EDT us Nikki Bower MD LAB BLOOD ORDERABLES Final Result Performing Organization Address City/[facility]/ZIP Co de Phone Number [facility] [address] [place] [phone] from Last 3 Months or Most Recently Relevant to Health Maintenance Additional Health Concerns Active Problems Noted Date Diagnosed Date Adjustment disorder with depressed mood 06/01/19 23 Insurance [facility] C[facility] Care Teams Transcription Manager Relationship Specialty Start Date End Date Nikki Baker MD [address] [place] [address] PCP - General Family Medicine 07/21/18
--- OUTSIDE RECORDS SUMMARY | 2024-12-19 15:41 | XMS_ITS | Encounter Summary ---
Author Organization [employer] Address [address] [facility] [address] [place] [address] Care Team Providers Care Fuel Cell Test Engineer Name Role Phone Nikki Baker MD Primary Care Provide r Encounter Details Date Type Department Care Team ([facility] Contact Info) Description 12/14/2024 Telephone [facility] [address] [place], [place] [phone] Nikki Baker MD [address] [place] [address] Social History Tobacco Use Types Packs/Day Years [...] encounter Miscellaneous Notes * Telephone Encounter - Erinn Leblanc RN - 12/14/2024 3:35 PM EDT Spoke with patient regarding paperwork for Early Education and Care/Verification of disability/special need of Parent form. I was trying to explain after speaking with patient's provider that we are unable to complete this form as he wants to use his diagnosis of anxiety and depression as his disability. The form states that a if using mental health diagnosis a psychiatrist, doctorate level Psychologist , or Psychiatric nurse must sign form. Patient is not receiving any therapy or seeing a psychiatrist or taking any meds for his anxiety and depression. Patient wants only his doctor to speak with him and fill out the form. Patient started to yell at me and stated that I am not a doctor and why am I getting involved in his business. I was unable to explain because patient would not let me speak. I told him to contact the health center and make an appointment to speak with his doctor regarding his issues. He hung up the phone on me. documented in this encounter Plan of Treatment Not on file documented as of this encounter Visit Diagnoses Not on filedocumented in this encounter Additional Health Concerns Active Problems Noted Date Diagnosed Date Adjustment disorder with depressed mood 06/01/19 23 Assessment Noted Time PHQ-9 Depression Total Score: 0 11/28/19 25 2:27 PM EDT documented as of this encounter Care Teams Fuel Cell Test Engineer Relationship Specialty Start Date End Date Nikki Baker MD [address] [place] [address] PCP - General Family Medicine 07/21/18 documented as of this encounter
--- OUTSIDE RECORDS SUMMARY | 2024-12-19 15:41 | XMS_ITS | Encounter Summary ---
Author Organization [employer] Address [address] [place] [address] Care Team Providers Care Vision Care Associate Name Role Phone Nikki Baker MD Primary Care Provide r Reason for Visit * Reason Onset Date Comments Referral 09/02/2023 Encounter Details Date Type Department Care Team ([facility] st Contact Info) Description 09/02/2023 Telephone [facility] [address] [place] [address] Nikki Baker MD [address] [place] [address] Referral Social History Tobacco Use Types Packs/Day [...] PM EDT documented as of this encounter Functional [...] from pt requesting to be referred to [facility] - [address], [place] [address] , states [facility] is no longer accepting new patients. Please contact at [phone] * Telephone Encounter - Marie Trevizo RN - 09/02/2023 12:49 PM EDT Bariatric surgery referral placed today, pt. Requesting location in [facility] * Telephone Encounter - Zari Perez - 09/02/2023 12:39 PM EDT Tc from pt calling requesting a different location on bariatric referral, stated [facility] officedon't take [employer] [facility] and he will like to be seen on [place]. documented in this encounter Plan of Treatment Not on file documented as of this encounter Visit Diagnoses Not on filedocumented in this encounter Additional Health Concerns Active Problems Noted Date Diagnosed Date Adjustment disorder with depressed mood 06/01/19 23 Assessment Noted Time PHQ-9 Depression Total Score: 0 09/02/19 24 11:42 AM EDT documented as of this encounter Care Teams Vision Care Associate Relationship Specialty Start Date End Date Nikki Baker MD [address] [place] [address] PCP - General Family Medicine 07/21/18 documented as of this encounter
--- OUTSIDE RECORDS SUMMARY | 2024-12-19 15:41 | XMS_ITS | Encounter Summary ---
Author Organization [employer] Address [address] [facility] 7t [place] [address] Care Team Providers Care Costume Designer Name Role Phone Nikki Baker MD Primary Care Provide r Reason for Visit * Reason Comments Med Refill Encounter Details Date Type Department Care Team ([facility] st Contact Info) Description 05/22/2023 Refill [facility] MEDICINE [address] [place], [place] [phone] Bettye Hsu DO [address] [place], [place] [phone] Screening for STD (sexually transmitted disease) Social [...] PM EDT documented as of this encounter Plan [...] documented as of this encounter Care Teams Costume Designer Relationship Specialty Start Date End Date Nikki Baker MD [address] [place] [phone] PCP - General Family Medicine 07/21/18 documented as of this encounter
--- OUTSIDE RECORDS SUMMARY | 2024-12-19 15:41 | XMS_ITS | Encounter Summary ---
Author Organization [employer] Address [address] [facility] 7t [place] [address] Care Team Providers Care Outreach Coordinator Name Role Phone Nikki Baker MD Primary Care Provide r Encounter Details Date Type Department Care Team ([facility] st Contact Info) Description 11/16/2024 Orders Only [facility] MEDICINE [address] [place], [place] [phone] Nikki Baker MD [address] [place], [place] [phone] Pre-operative clearance (Primary Dx) Social History Tobacco [...] your housing situation today? I have reji sing 09/02/[address] you li [...] on file documented as of this encounter Procedures Procedure [...] Quantitative, Real-Time PCR (11/16/2024 1:41 PM EDT) Hepatitis C Antibody Nonreactive Nonreactive [facility] Comment:Antibodies to HCV no t detected; does not exclude early acuteHCV infection. 11/16/2024 1:41 PM EDT 11/16/2024 3:57 PM EDT Nikki Bower MD LAB BLOOD ORDERABLES Final Result Performing Organization Address [facility] Co de Phone Number [facility] [address] [place] [phone] * Prothrombin Time-INR (11/16/2024 1:25 PM EDT) Prothrombin Time 11.5 10.9 - 12.4 SEC [facility] INTERNATIONAL NORM RATIO 1.0 0.9 - 1.1 [facility] Comment:INTERNATIONAL NORMAL IZED RATIO (INR) REFERENCE [...] BLOOD ORDERABLES Final Result Performing Organization Address [facility] de Phone Number [facility] [address] [place] [phone] * HIV-1 RNA, Quantitative, Real-Time PCR (11/16/2024 1:25 PM EDT) HIV RNA PCR Qn Copies NOT DETECTED NOT DETECTED copies/mL [facility] HIV RNA PCR Qn Log Copies NOT DETECTED NOT DETECTED [facility] Comment:Result Units: Log co pies/mLThis test was performed using Real-Time Polymerase ChainReaction.Reportable Range: 20 copies/mL to 10,000,000 copies/mL(1.30 log copies/mL to 7.00 log copies/mL).THIS TEST WAS PERFORMED AT:[facility] [place] [id number] HANDY MD Blood Venous blood specimen / Unknown 11/16/2024 1:25 PM EDT 11/16/2024 3:57 PM EDT Nikki Bower MD LAB BLOOD ORDERABLES Final Result [facility] [address] [place] [phone] * (ABNORMAL) CBC auto differential (11/16/2024 1:25 PM EDT) White Blood Count 10.6 4.8 - 10.8 X10*3/uL [facility] Red Blood Count 5.52 4.60 - 5.80 X10*6/uL [facility] Hemoglobin 14.8 14.0 - 18.0 g/dl [facility] Hematocrit 45.9 42.0 - 52.0 % [facility] Mean Corpuscular Volume 83.2 80.0 - 98.0 fL [facility] Mean Corpuscular Hemoglobin 26.8(L) 27.0 - 33.0 pg [facility] Mean Corpuscular HGB Conc 32.2 31.0 - 36.0 g/dl [facility] Red Cell Distribution Width 14.5 11.0 - 16.0 % [facility] Platelet Count 282 160 - 400 X10*3/uL [facility] Mean Platelet Volume 11.5 9.4 - 12.4 fL [facility] Neutrophils Percent Auto 52.7 45 - 73 % [facility] Imm Gran Pct Auto 0.5(H) 0.0 - 0.4 % [facility] Lymphocytes Percent Auto 39.7 20 - 40 % [facility] Monocytes Percent Auto 5.8 2 - 11 % [facility] Eosinophils Percent Auto 0.7 0 - 4 % [facility] Basophils Percent Auto 0.6 0 - 2 % [facility] NRBC Pct Auto 0.0 0.0 - 0.2 /100WBC [facility] Neutrophils Absolute Auto 5.6 2.0 - 8.3 x10*3/uL [facility] Imm Gran Abs Auto 0.05(H) 0.00 - 0.03 X10*3/uL [facility] Lymphocytes Absolute Auto 4.2 1.2 - 4.9 X10*3/uL [facility] Monocytes Absolute Auto 0.6 0.1 - 1.2 X10*3/uL [facility] Eosinophils Absolute Auto 0.1 0.0 - 0.4 X10*3/uL [facility] Basophils Absolute Auto 0.1 0.0 - 0.2 X10*3/uL [facility] NRBC Abs Auto 0.000 0.0 - 0.012 X10*3/uL [facility] Blood Venous blood specimen / Unknown 11/16/2024 1:25 PM EDT 11/16/2024 3:57 PM EDT us Nikki Bower MD LAB BLOOD ORDERABLES Final Result Performing Organization Address City/[facility]/ZIP Co de Phone Number [facility] [address] [place] [phone] * Hepatic Function Panel (11/16/2024 1:25 PM EDT) Bilirubin, Direct 0.2 0.0 - 0.5 mg/dL [facility] Blood Venous blood specimen / Unknown 11/16/2024 1:25 PM EDT 11/16/2024 3:57 PM EDT us Nikki Bower MD LAB BLOOD ORDERABLES Final Result Performing Organization Address [facility]/ZIP Co de Phone Number [facility] [address] [place] [phone] * Comprehensive Metabolic Panel (11/16/2024 1:25 PM EDT) Sodium 141 135 - 145 mmol/L [facility] Potassium 4.0 3.3 - 5.1 mmol/L [facility] Chloride 106 96 - 108 mmol/L [facility] Carbon Dioxide 27 22 - 29 mmol/L [facility] Anion Gap 12 12 - 20 [facility] Urea Nitrogen (BUN) 10 9 - 16 mg/dL [facility] Creatinine, Serum 1.05 0.5 - 1.4 mg/dL [facility] Estimated Glomerular Filt Rate >60 [facility] Comment:Chronic Kidney Disea se: Estimated GFR < 60 mL/min/[id number] Kidney Disease: Estimated GFR < 15 mL/min/1.73m2 Glucose 80 60 - 115 mg/dL [facility] Calcium 9.5 8.4 - 10.2 mg/dL [facility] Bilirubin, Total 0.5 0.0 - 1.0 mg/dL [facility] Aspartate Amino Transferase 34 5 - 37 U/L [facility] Alanine Aminotransferase 36 0 - 40 U/L [facility] Total Protein 7.6 6.5 - 8.0 g/dL [facility] Albumin Level 4.6 3.5 - 5.0 g/dL [facility] Alkaline Phosphatase 109 39 - 117 U/L [facility] Blood Venous blood specimen / Unknown 11/16/2024 1:25 PM EDT 11/16/2024 3:57 PM EDT us Nikki Bower MD LAB BLOOD ORDERABLES Final Result [facility] [address] [place] [phone] documented in this encounter Visit Diagnoses Diagnosis Pre-operative clearance- Primary Unspecified pre-operative examination documented in this encounter Additional Health Concerns Active Problems Noted Date Diagnosed Date Adjustment disorder with depressed mood 06/01/19 23 Assessment Noted Time PHQ-9 Depression Total Score: 0 09/02/19 24 11:42 AM EDT documented as of this encounter Care Teams Outreach Coordinator Relationship Specialty Start Date End Date Nikki Baker MD [address] [place] [phone] PCP - General Family Medicine 07/21/18 documented as of this encounter
--- OUTSIDE RECORDS SUMMARY | 2024-12-19 15:41 | XMS_ITS | Encounter Summary ---
Author Organization [employer] Address [address] [facility] 7t [place] [address] Care Team Providers Care Hospice Director Name Role Phone Nikki Baker MD Primary Care Provide r Encounter Details Date Type Department Care Team ([facility] Contact Info) Description 02/01/2024 Orders Only [facility] MEDICINE [address] [place], [place] [phone] Nikki Baker MD [address] [place], [place] [phone] Social History Tobacco Use Types Packs/Day Years [...] documented as of this encounter Care Teams Hospice Director Relationship Specialty Start Date End Date Nikki Baker MD [address] [place] [phone] PCP - General Family Medicine 07/21/18 documented as of this encounter
--- OUTSIDE RECORDS SUMMARY | 2024-12-19 15:41 | XMS_ITS | Clinical Summary ---
Author Organization [address] [facility] Address [address] [place] [phone] Phone Care Team Providers Care Mold Making Supervisor Name Role Phone Nikki Baker MD Primary [...] topic Insurance MEDICAID - [place] Care Teams Mold Making Supervisor Relationship Specialty Start Date End Date Nikki Baker MD [address] [facility] [address] [place] [phone] PCP - General Internal Medicine 01/10/24
--- OUTSIDE RECORDS SUMMARY | 2024-12-19 15:41 | XMS_ITS | Encounter Summary ---
Author Organization [employer] Address [address] [place] [address] 7t [place] [address] Care Team Providers Care Java Consultant Name Role Phone Nikki Baker MD Primary Care Provide r Encounter Details Date Type Department Care Team ([facility] st Contact Info) Description 03/29/2022 [facility] [employer] [address] [place], [place] [phone] Nikki Baker MD [address] [place], [place] [phone] Social History Tobacco Use Types Packs/Day Years [...] on filedocumented in this encounter Care Teams Java Consultant Relationship Specialty Start Date End Date Nikki Baker MD [address] [place], [place] [phone] PCP - General Family Medicine 07/21/18 documented as of this encounter
--- OUTSIDE RECORDS SUMMARY | 2024-12-19 15:41 | XMS_ITS | Encounter Summary ---
Author Organization [employer] Address [address] [facility] 7t [place] [address] Care Team Providers Care Night Worker Name Role Phone Nikki Baker MD Primary Care Provide r Encounter Details Date Type Department Care Team (Latest Contact Info) Description 12/19/2024 Travel Social History Tobacco Use Types Packs/Day [...] documented as of this encounter Care Teams Night Worker Relationship Specialty Start Date End Date Nikki Baker MD [address] [place] [phone] PCP - General Family Medicine 07/21/18 documented as of this encounter
== END 2024-12-19 12:20 | disposition home or self-care (01) ==
LOC: HO.HHCX 12:19
PROVIDERS: PCP Internal Medicine; Visit Provider Internal Medicine
DX: M79.671 Pain in right foot (principal)
CPT/HCPCS: 73630

== ENCOUNTER → 2024-12-19 12:39 | Outpatient (BNV) | payer MEDICAID, SELFPAY | PROVIDERS: PCP Internal Medicine; Visit Provider Radiology Diagnostic Radiology | DX: M20.11 Hallux valgus (acquired), right foot (principal) | CPT/HCPCS: 73630 ==